=== PATIENT | male | born 1945 | race Caucasian/White ===

== ENCOUNTER 2023-04-27 03:50 | Observation (INO) ==
[2023-04-27] MEDS ORDERED: ASPIRIN 81 MG CHEW PO STA (04:14)
--- NOTE | 2023-04-27 04:19 | Emergency Department Note ---
History of Present Illness General Chief complaint: Chest Pain Stated complaint: CHEST PAIN ON LEFT SIDE Time Seen by Provider: 04/27/23 04:01 Source: patient, family, RN notes reviewed and old records reviewed (06/29/22- radiation oncology visit for prostate cancer treatment/follow-up) Mode of arrival: ambulatory Limitations: no limitations History of Present Illness Maximum Pain Intensity: 4 This patient is a 78-year-old male who comes in after having chest pain that started this past afternoon around 4-4 30 he had but was playing bridge and went out to his car and just had a dull ache is been persistent and low-grade all night it never goes away nothing particular makes it better work he took 2 Aleve without much relief. It is worse with certain positions is better if he puts his arms up over his head. He felt a little short of breath when walking in but otherwise no shortness of breath no nausea vomiting or diaphoresis no fever or cough he said he was worried about pneumonia because 2 people lose with had recent pneumonia but he has had no respiratory symptoms. No lower extremity pain or swelling no trauma or overuse. He has been having some nosebleeds lately although his says that it is not unusual for him. Home Medications Medication Instructions Recorded Confirmed Type aspirin 325 mg tablet 325 mg PO DAILY 09/19/18 06/29/21 History lisinopril 20 mg tablet 20 mg PO DAILY 09/19/18 06/29/21 History loratadine 10 mg capsule 10 mg PO DAILY 09/19/18 06/29/21 History multivitamin 1 cap PO DAILY 09/19/18 06/29/21 History allopurinol 100 mg tablet 300 mg PO DAILY 06/29/21 06/29/21 History Allergies Allergy/AdvReac Type Severity Reaction Status Date / Time No Known Allergies Allergy Verified 06/29/21 13:12 Past Med/Surg History Medical History Sebaceous cyst Removed from chest wall Allergic rhinitis Gout 1 episode - now resolved Prostate cancer BPH (benign prostatic hyperplasia) Hypertension Surgical History H/O left inguinal hernia repair Hx of hemorrhoidectomy Family History Mother , 76yo Hypertension AML (acute myeloid leukemia) Father , 76yo Prostate cancer Diabetes Myocardial infarction Hypertension Sister Wilms' tumor Had a kidney removed Breast cancer Arthritis Hypertension Son , 46yo ALL (acute lymphoblastic leukemia) Meningioma Initially benign and later became malignant Daughter No problems noted. Social History Smoking Status: Former smoker Age Started Using Tobacco: 16; Cigarettes Per Day: Less than 1 PPD when smoking;smoked his pipe more;; Hx Alcohol Use: Yes (1 glass wine/week;Scotch 1/week;Beer in golf seasoning;) Alcohol type: beer, wine and hard liquor Hx Substance Use: No Preferred Language: Mohawk Communication Ability: Effective Visual Impairment: No Limitations Hearing Ability: Normal Manager System Required: No Beliefs That Will Affect Care: None marital status: Current Living Situation: Spouse Current Living Situation Comment: Lives at the [facility] current occupational status: retired 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;Professor; Feels Safe at Home: Yes Diet: other caffeine: No Review of Systems A total of 10 systems reviewed and were otherwise negative Physical Exam Vital Signs Vital Signs - 24 hr 04/27/23 03:55 04/27/23 03:55 04/27/23 03:58 Temperature 36.4 C L Temperature Source Oral Pulse Rate 67 70 Pulse Rate [Apical] Pulse Rhythm [Apical] Respiratory Rate 25 H Respiratory Effort / Characteristics Short of Breath Respiratory Depth Respiratory Pattern Blood Pressure 172/88 H Blood Pressure [Left Arm] Blood Pressure Mean 116 Blood Pressure Mean [Left Arm] Blood Pressure Position [Left Arm] Pulse Oximetry 98 Oxygen Delivery Method Room Air Sepsis Recent Fever Within 48 Hours No Sepsis New/Unexplained Change in Mental Status N/A Sepsis Action Taken by Nursing No Action Required 04/27/23 04:13 04/27/23 04:54 04/27/23 06:23 Temperature Temperature Source Pulse Rate Pulse Rate [Apical] 60 64 Pulse Rhythm [Apical] Regular Respiratory Rate 16 24 Respiratory Effort / Characteristics Non-Labored Spontaneous Non-Labored Spontaneous Respiratory Depth Normal Normal Respiratory Pattern Regular Regular Blood Pressure Blood Pressure [Left Arm] 129/67 144/87 H Blood Pressure Mean Blood Pressure Mean [Left Arm] 87 106 Blood Pressure Position [Left Arm] Semi-fowlers Semi-fowlers Pulse Oximetry 96 93 96 Oxygen Delivery Method Room Air Room Air Room Air Sepsis Recent Fever Within 48 Hours Sepsis New/Unexplained Change in Mental Status Sepsis Action Taken by Nursing General: Well developed well nourished in no acute distress, breathing comfortably on room air. Normal speech HEENT: Normal cephalic atraumatic. Pupils are equal round and reactive to light. Sclera anicteric. Extraocular movements are intact. Oropharynx is pink with moist mucous membranes. No swelling of the mouth lips or tongue. Neck: Supple with a midline trachea. No meningeal signs or stiffness, no JVD or bruits. No Stridor. Chest: Clear to auscultation bilaterally. No wheezes or rhonchi. No increased work of breathing. Mildly tender to palpation in the left side and is reproducible with movement he says Heart: Regular rate and rhythm with frequent PVCs seen on the monitor and irregularity but without murmurs or gallops. Abdomen: Soft nontender, nondistended without rebound guarding or rigidity. Extremities: No cyanosis clubbing or edema. No calf tenderness or assymetry Spine/Back. Non tender to palpation. No CVA tenderness Skin: Good turgor without rashes. Neurologic exam: Cranial nerves two through 12 are intact. Motor and sensation are intact and symmetrical throughout. Course Administered Medications Discontinued Medications Aspirin (Aspirin 81 Mg Chew) 324 mg PO NOW STA Stop: 04/27/23 04:15 Last Admin: 04/27/23 04:20 Dose: 324 mg Documented By: MICHAEL Sodium Chloride (Nss) 500 mls @ 999 mls/hr IV .Q31M ONE Stop: 04/27/23 05:20 Last Infusion: 04/27/23 05:29 Dose: Infused Documented By: Admin: 04/27/23 04:58 Dose: 999 mls/hr Documented By: MICHAEL Medical Decision Making Differential Diagnosis Acute coronary syndrome, arrhythmia, pneumothorax, pneumonia, infection, COVID, GERD, musculoskeletal, PE Medical Records Attestation: I reviewed the patient's medical records. Home Medications Current Medication List: was personally reviewed by me Laboratory Data Attestation: I reviewed the patient's lab results. 04/27/23 04:06 04/27/23 04:06 Lab Results 04/27/23 04/27/23 Range/Units 04:06 04:21 WBC 55.26 H* (4.8-10.8) K/ul RBC 3.36 L (4.70-6.10) M/uL Hgb 9.2 L (14.0-18.0) g/dl Hct 31.4 L (42.0-52.0) % MCV 93.5 (80.0-100.0) fL MCH 27.4 (25.0-34.0) pg MCHC 29.3 L (32.0-36.0) g/dL RDW Std Deviation 62.7 H (36.4-46.3) fL RDW Coeff of Lilliam 18.9 H (11.5-14.5) % Plt Count 54 L (130-400) K/uL Absolute Nucleated RBC 2.90 H (0.00-0.12) K/uL Nucleated RBC % (auto) 5.2 % Neutrophils % (Manual) 61 % Lymphocytes % (Manual) 7 % Monocytes % (Manual) 7 % Metamyelocytes % (Man) 10 % Myelocytes % (Man) 9 % Promyelocytes % (Man) 1 % Blast Cells % (Manual) 5 % Neutrophils # (Manual) 33.71 H (1.40-6.50) K/uL Total Absolute Neuts 33.71 H (1.4-6.5) K/uL Lymphocytes # (Manual) 3.87 H (1.2-3.4) K/uL Total Abs Lymphocytes 3.87 H (1.2-3.4) K/uL Monocytes # (Manual) 3.87 H (0.11-0.59) K/uL Metamyelocytes # (Man) 5.53 H (0-0) K/uL Myelocytes # (Manual) 4.97 H (0-0) K/uL Promyelocytes # (Man) 0.55 H (0-0) K/uL Blast Cells # (Man) 2.76 H (0-0) K/uL Hypogranular Neuts 1+ Dohle Bodies 1+ Polychromasia 1+ Stomatocytes 1+ D-Dimer 2060 H* (0-500) ug/L FEU Sodium 134 L (136-145) mmol/L Potassium 4.2 (3.5-5.1) mmol/L Chloride 104 (98-107) mmol/L Carbon Dioxide 22 (21-32) mmol/L Anion Gap 8 (3-11) BUN 36 H (6-23) mg/dl Creatinine 2.14 H (0.6-1.4) mg/dl Est Cr Clr Drug Dosing 37.6 ml/min Est GFR ( Amer) 32.7 ml/min Est GFR (Non-Af Amer) 28.2 ml/min BUN/Creatinine Ratio 16.8 (10-20) Glucose 119 H (70-99(Fasting)) mg/dl Calcium 8.4 L (8.6-10.3) mg/dl Total Bilirubin 1.3 H (0.2-1.0) mg/dl AST 35 (13-39) U/L ALT 11 (7-52) U/L Alkaline Phosphatase 78 (34-104) U/L Troponin I High Sens 11.7 (0-20) pg/ml Total Protein 7.3 (6.0-8.3) gm/dl Albumin 4.1 (3.4-5.0) gm/dl Globulin 3.2 (2.5-4.0) gm/dl Albumin/Globulin Ratio 1.3 (0.9-2) Lipase 27 (11-82) U/L SARS-CoV-2 (PCR) POSITIVE A* (Negative) Influenza Type A (PCR) Negative (Neg) Influenza Type B (PCR) Negative (Neg) RSV (RT-PCR) Negative (Neg) Imaging Data Attestation: I personally reviewed and interpreted this imaging study as follows: My Impression: Chest x-kirstin per my independent interpretationno acute infiltrate, failure, pneumothorax. There is mild increased interstitial markings more so on the right Radiologist's Impression: Chest X-Ray 04/27/23 04:13 SINGLE VIEW CHEST CLINICAL HISTORY: Atypical chest pain. FINDINGS: An AP, portable, upright chest radiograph is obtained. No prior studies are available for comparison at the time of dictation. The heart is enlarged. The pulmonary vasculature is noncongested. Nonspecific interstitial thickening is likely chronic. There is bibasilar scarring/atelectasis. The lungs and pleural spaces are otherwise clear. No pneumothorax is seen. The skeletal structures are osteopenic. The bony thorax is grossly intact. Arthritic change is noted in the left shoulder. IMPRESSION: Cardiomegaly with no acute cardiopulmonary abnormality identified ACT 112: Negative or not required by law. Electronically signed by: Ash Coe M.D. 04/27/2023 7:10 AM ECG Data Attestation: I personally reviewed and interpreted this ECG as follows: Indication: + chest pain Rate (beats per minute): 81 Rhythm: + normal sinus ECG Intervals/blocks: + Normal QRS, + Normal QT and + Normal PA ECG [place]: + Normal ECG ST segments: + Normal ST segments ECG Findings: + PVCs and + [place]; no PACs Comparison ECG Date: no prior available MDM Narrative This patient comes in as scribed above he had persistent chest pain that has been there approximately 12 hours. On exam there is no rash. He appears in no distress. He has stable vital signs .he is not hypoxemic there is been no trauma. His EKG shows frequent PVCs/bigeminy which he says is common for him he tells me he had a stress test at 1 point about a year ago was normal with exception of frequent PVCs which got better with stress. He has no known cardiac history. IV access established was placed on a clinical research monitor he was given aspirin 324 mg chewable he was reassessed frequently. Multiple blood testing was obtained as well as an x-ray and EKG. his troponin is within normal limits. His symptoms would be atypical for cardiac disease. Chest x-ray does not show any congestive heart failure, pneumonia, pneumothorax. His renal function is elevated compared to baseline there may be a prerenal component his creatinine is up to 2 I did give him 500 cc IV normal saline bolus. he feels he has been keeping up with his fluids. His CBC came back markedly abnormal. His white count is 55,000 and he has a hemoglobin in the 9 range and platelets in the 50,000 range. He does have pancytopenia I am concerned he could have a leukemic or bone marrow type process and I think that that is likely causing his symptoms. I do think he needs to be admitted/observed for further treatment and evaluation. His COVID test did come back positive however he did have COVID over [place] and I think likely that the residual as he has no COVID-like symptoms. I did consult Dr. Leon, who saw him in the ER and will be admitting him for these measures. After Dr. Leon saw him the lab did call and stated that he had blasts and the pathologist would be reviewing it as well Continuous cardiac monitoring: Orders placed in EMR for continuous cardiac monitoring: Upon my evaluation patient noted to be in normal sinus rhythm with a rate of 80 with frequent PVCs Impression & Plan Chest pain, Frequent PVCs, Elevated WBC count, Thrombocytopenia, Anemia, Bone marrow disease Discharge Plan Visit Data Chief Complaint: Chest Pain Stated Complaint: CHEST PAIN ON LEFT SIDE ED Provider: Rachid Vega Discharge Problem: Chest pain, Frequent PVCs, Elevated WBC count, Thrombocytopenia, Anemia, Bone marrow disease Forms Stand Alone Forms: My [facility] Prescriptions Prescriptions: No Action aspirin 325 mg tablet 325 mg PO DAILY loratadine 10 mg capsule 10 mg PO DAILY multivitamin capsule 1 cap PO DAILY lisinopril 20 mg tablet 20 mg PO DAILY allopurinol 100 mg tablet 300 mg PO DAILY Referrals Referrals: PCP,NO [Physician] - Discharge Problem: Chest pain Qualifiers: Chest pain type: precordial pain Qualified Code(s): R07.2 - Precordial pain Elevated WBC count Qualifiers: Leukocytosis type: unspecified Qualified Code(s): D72.829 - Elevated white blood cell count, unspecified Anemia Qualifiers: Anemia type: unspecified type Qualified Code(s): D64.9 - Anemia, unspecified
[2023-04-27 04:40] LABS: Albumin Globulin Ratio 1.3 (0.9-2); Albumin Level 4.1 gm/dl (3.4-5.0); BUN Creatinine Ratio 16.8 (10-20); Bilirubin,Total 1.3 mg/dl (0.2-1.0); Calcium 8.4 mg/dl (8.6-10.3); Creatinine Clr Calc Pharmacy 37.6 ml/min; Est GFR (African American) 32.7 ml/min; Est GFR (Non-African American) 28.2 ml/min; Globulin 3.2 gm/dl (2.5-4.0); Potassium 4.2 mmol/L (3.5-5.1); Total Protein 7.3 gm/dl (6.0-8.3)
[2023-04-27 04:46] LABS: Troponin I High Sensitivity 11.7 pg/ml (0-20)
[2023-04-27] MEDS ORDERED: SODIUM CHLORIDE 0.9% 500 ML IV ONE (04:50)
[2023-04-27 05:07] LABS: Hematocrit (blood only) 31.4 % (42.0-52.0); Hemoglobin 9.2 g/dl (14.0-18.0); Mean Corpuscular Hemoglobin 27.4 pg (25.0-34.0); Mean Corpuscular Hgb Conc 29.3 g/dL (32.0-36.0); Mean Corpuscular Volume 93.5 fL (80.0-100.0); Nucleated RBC % (auto) 5.2 %; Platelet Count 54 K/uL (130-400); RDW Coefficient of Variation 18.9 % (11.5-14.5); RDW Standard Deviation 62.7 fL (36.4-46.3); Red Blood Count 3.36 M/uL (4.70-6.10); White Blood Count 55.26 K/ul (4.8-10.8)
[2023-04-27 05:16] LABS: Influenza A virus by PCR Negative (Neg); Influenza B virus by PCR Negative (Neg); RSV by PCR Negative (Neg)
[2023-04-27 06:13] LABS: D Dimer 2060 ug/L FEU (0-500)
[2023-04-27 06:14] LABS: SARS CoV2 RNA(COVID-19) Ceph POSITIVE (Negative)
[2023-04-27 06:15] LABS: ALC (manual) 3.87 K/uL (1.2-3.4); ANC (manual) 33.71 K/uL (1.4-6.5); Blast # (manual) 2.76 K/uL (0-0); Blast Cells % (manual) 5 %; Dohle Bodies 1+; Hypogranular Neutrophils 1+; Lymphocytes # (manual) 3.87 K/uL (1.2-3.4); Lymphocytes % (manual) 7 %; Metamyelocytes # (manual) 5.53 K/uL (0-0); Metamyelocytes % (manual) 10 %; Monocytes # (manual) 3.87 K/uL (0.11-0.59); Monocytes % (manual) 7 %; Myelocytes # (manual) 4.97 K/uL (0-0); Myelocytes % (manual) 9 %; Neutrophils # (manual) 33.71 K/uL (1.40-6.50); Neutrophils % (manual) 61 %; Polychromasia 1+; Promyelocytes # (manual) 0.55 K/uL (0-0); Promyelocytes % (manual) 1 %; Stomatocytes 1+
--- OUTSIDE RECORDS SUMMARY | 2023-04-27 07:10 | External Medical Summary | Summary of Care ---
Author Name Unknown Organization [facility] Address [address] [place] [address] Phone [phone] Care Team Providers Care Financial Sales Associate Name Role Phone Mohan Haddad DO Primary Care Provider Reason for Visit * Reason Onset Date Comments Appointment 12/18/2022 Cardio Encounter Details Date Type Department Care Team (Late st Contact Info) Description 12/18/2022 Telephone Family Practice [facility] [address] [facility] [place] [address] Mohan Haddad DO [address] [facility] [place] [address] Appointment (Cardio ) Allergies Active Allergy Reactions Criticality Noted Date Comments Adhesive Tape Rash 05/21/2018 Allergic to adhesive only,not the " tape" documented as of this encounter (statuses as of 02/13/2023) Medications Medication Sig Dispensed Refills Start Date End Date Status aspirin 325 MG Tablet Take 1 Tablet by mouth in the morning. 0 Active Multiple Vitamins-Minerals (CENTRUM ADULTS) TABS Take by mouth. 0 Active Loratadine 10 MG Cap Take 1 Capsule by mouth in the morning. 0 Active Fluocinonide 0.05 % External Ointment Apply topically to affected area 2 times a day . Apply to arms and legs for flares of rash 60 g 1 2022 Active Additional Information Patient not taking.Reported on 04/28/2022 Metoprolol Succinate ER 25 MG Oral Tablet Extended Release 24 Hour (Toprol XL)Indications:Vik quent PVCs Take 0.5 Tablets by mouth at bedtime. 45 Tablet 3 10/02/2022 Active Lisinopril 10 MG Oral Tablet (Prinivil) Take 1 Tablet by mouth in the morning. 90 Tablet 3 10/16/2022 Active Allopurinol 300 MG Oral Tablet (Zyloprim) TAKE 1 TABLET DAILY. [id number] PRESCRIPTION 90 Tablet 1 11/28/2022 Active documented as of this encounter (statuses as of 02/13/2023) Active Problems Problem Noted Date Diagnosed Date Chronic kidney disease, stage 3a 06/14/2020 Overview: Per CKD protocol Prostate cancer 05/21/2019 History of actinic keratoses 01/06/2019 Obesity, Class I, BMI 30.0-34.9 (see actual BMI) 05/21/2018 documented as of this encounter (statuses as of 02/13/2023) Resolved Problems Problem Noted Date Diagnosed Date Resolved Date Prostate cancer 11/14/2018 05/21/2019 documented as of this encounter (statuses as of 02/13/2023) Immunizations Name Administration Dates Next Due COVID-19 mRNA, LNP-s, No Pre serve, 2-Dose Series ([email or web address]) 06/02/2020,05/12/2020 COVID-19, MRNA-LNP, 23-24, P F, 30 MCG/0.3 mL, 12 YRS AND ABOVE, IM ([facility]ZER-[facility]) 01/10/2023 COVID-19, mRNA, LNP-s, PF, B ooster, 100mcg/0.5mg (Moderna) 07/19/2021,02/10/2021 Covid-19, Mrna, Lnp-s, Pf, B ivalent, 30 Mcg, IM, 12 yrs and above (Pfizer) 01/10/2022 Pneumococcal Conjugate Vacc, 13 Valent (Prevnar) 03/26/2015,01/06/2010 Pneumococcal Polysaccharide PPV23 (Pneumovax) 01/06/2010,04/30/2000 Rsv Vac., Recomb, Adjuvant, Pf,0.5 Ml (Arexvy) 12/19/2022 Season Influenza, Quad, PF, Adjuvanted, 65+ Yrs, IM (FLUAD) 01/27/2022 Seasonal Influenza Virus Vac cine, Unspecified Formulation 01/24/2018 Seasonal Influenza, Quadriva lent Hd (Fluzone Hd) 01/24/2023,01/31/2021 Seasonal Influenza, Quadriva lent Hd, 65+ Yrs 01/24/2020 Seasonal Influenza, Trivalen t, Adjuvanted, 65+ yrs 01/26/2022,01/21/2019,01/24/2018 TD - Tetanus/Diptheria (ADULT) 01/06/2010 TDAP (age 10 and older)(Boostrix) 05/31/2022 TDAP (age 11 and older)(Adacel) 01/17/2012 Varicella Zoster Vaccine (Adult) 01/23/2007 Zoster Vaccine Recombinant (Shingrix) ,10/10/2019,04/16/2019,04/16 documented as of this encounter Social History Tobacco Use Types Packs/Day Years Used Date Smoking Tobacco: Former Cigarettes Q uit: 10/05/1970 Smokeless Tobacco: Never Alcohol Use Standard Drinks/Week Comments Yes 1 (1 standard drink = 0.6 oz pur e alcohol) occ PHQ-2 Answer Date Recorded PHQ Adult Total Score 0 06/23/2020 Hunger Vital Sign Answer Date Recorded Worried About Running Out of Food in the Last Ye ar Never true 05/21/2019 Ran Out of Food in the Last Year Never true 05/21/2019 Sex and Gender Information Value Date Recorded Sex Assigned at Male 05/21/2019 9:49 AM EST Gender Identity Male 05/21/2019 9:49 AM EST Sexual Orientation Straight 05/21/2019 9: 49 AM EST Job Start Date Occupation Industry Not on file Not on file Not on file documented as of this encounter Miscellaneous Notes * Telephone Encounter - Teresa Matt OSA - 02/13/2023 11:35 AM EST Physician schedules are being opened on a monthly basis d/t the complexity of scheduling with them right now. Pt will remain on the recall list for an appointment. * Telephone Encounter - Hollie Vergara OSA - 02/13/2023 11:31 AM EST Pt calling back in regarding an appointment with Dr. Mcmahon. He is aware he is on recall list, but is upset that he has not heard back in regards to an appointment. Declined setting up an appointment with a midlevel. Please advise. Thank you. * Telephone Encounter - Jahaira Haddad - 12/18/2022 9:27 AM EDT Thanks. Pt was asking about 2023. He is aware someone will call him * Telephone Encounter - Jahaira Haddad - 12/18/2022 9:21 AM EDT When pts appt with Dr Wilburn was cx he was told he would get a call back to schedule with Dr Mcmahon, he would like a call about this appt as there is nothing open for me to offer him documented in this encounter Plan of Treatment Upcoming Encounters Date Type Department Care Team (Late st Contact Info) Description 03/05/2023 10:45 AM EST Office Visit Dermatology [facility] [address] [facility] [place] [address] Juve Maurice MD [address] [facility] [place] [address] 08/07/2023 8:00 AM EDT Office Visit Family Practice [facility] [address] [place] [address] Mohan Haddad DO [address] [place] [address] Scheduled Procedures Name Priority Associated Diagnoses Date/Ti me COLONOSCOPY FLEXIBLE PROXIMAL DIAGNOSTIC Recall History of colon polyps Health Maintenance Due Date Last Done Comments Depression Screening 06/23/2021 06/23/2020 CKD PHOS USE SMARTSET 90671 12/27/2021 12/27/2020 Albumin/Creatinine Ratio 05/30/2023 023, 06/27/2021, 05/24/2020, Additional history exists GFR 06/14/2023 12/14/2022, 05/11, 01/04/2022, Additional history exists CKD HGB USE SMARTSET 08121 12/15/202312/14, 12/14/2022, 10/03/2021, Additional history exists COLONOSCOPY-EVERY 3 YRS AGES 18-100 05/01/2025 05/01/2022, 05/01/2022 DTaP,Tdap,and Td Vaccines (3 - Td or Tdap) 05/31/2032 05/31/2022, 01/17/2012, 01/06/2010 Zoster Vaccines Completed 10/10/2019, 06/2019, 04/16/2019, Additional history exists COLONOSCOPY-EVERY 5 YRS AGES 18-100 Discontinued 05/01/2022, 05/01/2022 COVID-19 Vaccine Completed 01/10/2023, 07/2021, 07/19/2021, Additional history exists Influenza Vaccine (FLU shot) Completed 01/24/2023, 01/27/2022, 01/26/2022, Additional history exists GARDASIL-HPV IMMUNIZATION SERIES Aged Out No longer eligible based on patient's age to complete this topic Hepatitis B Aged Out No longer eligi ble based on patient's age to complete this topic MENINGOCOCCAL (MENACTRA/MENVEO) Aged Out No longer eligible based on patient's age to complete this topic documented as of this encounter Medical Devices Not on filedocumented as of this encounter Care Teams Financial Sales Associate Relationship Specialty Start Date End Date Mohan Haddad DO [address] [place] [address] PCP - General Family Medicine 05/21/18 documented as of this encounter
--- OUTSIDE RECORDS SUMMARY | 2023-04-27 07:10 | External Medical Summary | Summary of Care ---
Author Name Unknown Organization [facility] Address [address] [place] [address] Phone [phone] Care Team Providers Care Envelope Stamping Machine Operator Name Role Phone Mohan Haddad DO Primary Care Provider Reason for Visit * Reason Onset Date Comments Appointment 12/18/2022 Cardio Encounter Details Date Type Department Care Team (Late st Contact Info) Description 12/18/2022 Telephone Family Practice [facility] [address] [facility] [place] [address] Mohan Haddad DO [address] [facility] [address] Appointment (Cardio ) Allergies Active Allergy Reactions [...] Oral Tablet (Zyloprim) TAKE 1 TABLET DAILY. [id number] PRESCRIPTION 90 Tablet 1 11/28/2022 Active documented [...] mRNA, LNP-s, No Pre serve, 2-Dose Series ([employer]) 06/02/2020,05/12/2020 COVID-19, MRNA-LNP, 23-24, P F, 30 MCG/0.3 mL, 12 YRS AND ABOVE, IM ([facility]) 01/10/2023 COVID-19, mRNA, LNP-s, PF, B ooster, [...] encounter Miscellaneous Notes * Telephone Encounter - Hollie Vergara OSA [...] 03/05/2023 10:45 AM EST Office Visit Dermatology [facility] [address] [facility] [place] [address] Juve Maurice MD [address] [facility] [place] [address] 08/07/2023 8:00 AM EDT Office Visit Family Practice [facility] [address] [place] [address] Mohan Haddad DO [address] [place] [address] Scheduled Procedures Name Priority Associated Diagnoses Date/Ti me COLONOSCOPY FLEXIBLE PROXIMAL DIAGNOSTIC Recall History of colon polyps Health Maintenance Due Date Last Done Comments Depression Screening 06/23/2021 06/23/2020 CKD PHOS USE SMARTSET 64496 12/27/2021 12/27/2020 Albumin/Creatinine Ratio 05/30/2023 023, 06/27/2021, 05/24/2020, Additional history exists GFR 06/14/2023 12/14/2022, 05/11, 01/04/2022, Additional history exists CKD HGB USE SMARTSET 35772 12/15/202312/14, 12/14/2022, 10/03/2021, Additional history exists COLONOSCOPY-EVERY 3 YRS AGES 18-100 05/01/2025 05/01/2022, 05/01/2022 DTaP,Tdap,and Td Vaccines (3 - Td or Tdap) 05/31/2032 05/31/2022, 01/17/2012, 01/06/2010 Zoster Vaccines Completed 10/10/2019, 0706/2019, 04/16/2019, Additional history exists COLONOSCOPY-EVERY 5 YRS [...] filedocumented as of this encounter Care Teams Envelope Stamping Machine Operator Relationship Specialty Start Date End Date Mohan Haddad DO [address] [place] [address] PCP - General Family Medicine 05/21/18 documented as of this encounter
--- OUTSIDE RECORDS SUMMARY | 2023-04-27 07:10 | External Medical Summary | Summary of Care ---
Author Name Unknown Organization [facility] Address [address] [place] [address] Phone [phone] Care Team Providers Care Ramp Manager Name Role Phone Rajat Haddadgama Alejandrageramn Primary Care Provider Reason for Visit * Reason Comments Skin Check Patient is here for FBSE. Patient stated he has a red blotch on his upper right arm and he used fluocinonide. He also has two on his LLE that he put fluocinonide on. He said he doesn't know what they are. He also has fungus under his great right toenail. Patient has no history of skin cancer Encounter Details Date Type Department Care Team (Late st Contact Info) Description 03/05/2023 10:45 AM EST Office Visit Dermatology [facility] [place] [address] [facility] [place] [address] Juve Maurice MD [address] [facility] [place] [address] Actinic skin damage*; Seborrheic keratoses; Hinson angioma; Multiple benign nevi; Skin neoplasm; Nail dystrophy; Actinic keratosis Allergies Active Allergy Reactions Criticality Noted Date Comments Adhesive Tape Rash 05/21/2018 Allergic to adhesive only,not the " tape" documented as of this encounter (statuses as of 03/05/2023) Medications Medication Sig Dispensed Refills Start Date [...] of rash 60 g 1 2022 Active Metoprolol Succinate ER 25 MG Oral Tablet Extended Release 24 Hour (Toprol XL)Indications:Vik quent PVCs Take 0.5 Tablets by mouth at bedtime. 45 Tablet 3 10/02/2022 Active Lisinopril 10 MG Oral Tablet (Prinivil) Take 1 Tablet by mouth in the morning. 90 Tablet 3 10/16/2022 Active Allopurinol 300 MG Oral Tablet (Zyloprim) TAKE 1 TABLET DAILY. [id number] PRESCRIPTION 90 Tablet 1 11/28/2022 Active predniSONE 20 MG Oral Tablet (Deltasone)Indicat ions:Sinobronchiti s 2 tabs in the morning x 5 d, then one a day x 5 days 15 Tablet 0 02/28/2023 Active Amoxicillin-Pot Clavulanate 875-125 MG Oral Tablet (Augmentin)Indicat ions:Sinobronchiti s Take 1 Tablet by mouth in the morning and 1 Tablet before bedtime. Do all this for 10 days. 20 Tablet 0 02/28/2023 03/10/2023 Active documented as of this encounter (statuses as of 03/05/2023) Active Problems Problem Noted Date Diagnosed Date Chronic kidney disease, stage 3a 06/14/2020 Overview: Per CKD protocol Prostate cancer 05/21/2019 History of actinic keratoses 01/06/2019 Obesity, Class I, BMI 30.0-34.9 (see actual BMI) 05/21/2018 documented as of this encounter (statuses as of 03/05/2023) Resolved Problems Problem Noted Date Diagnosed Date Resolved Date Prostate cancer 11/14/2018 05/21/2019 documented as of this encounter (statuses as of 03/05/2023) Immunizations Name Administration Dates Next Due COVID-19 mRNA, LNP-s, No Pre serve, 2-Dose Series ([employer]) 06/02/2020,05/12/2020 COVID-19, MRNA-LNP, 23-24, P F, 30 MCG/0.3 mL, 12 YRS AND ABOVE, IM ([employer]-Comirnaty) 01/10/2023 COVID-19, mRNA, LNP-s, PF, B ooster, [...] on file documented as of this encounter Progress Notes * Juve Maurice MD - 03/05/2023 11:03 AM EST SUBJECTIVE: Chief Complaint: Chief Complaint Patient presents with Skin Check Patient is here for FBSE. Patient stated he has a red blotch on his upper right arm and he used fluocinonide. He also has two on his LLE that he put fluocinonide on. He said he doesn't know what theyare. He also has fungus under his great right toenail. Patient has no history of skin cancer HPI: Junior Burkett is a 78 year old male seen for a full skin check. A couple spots he's concerned about. Red blotch on right arm. Sometimes on legs too. Applies fluocinonide and that seems to help Also has yellow nail on right great toe. Thinks it might be fungus, not bothered by this DERMATOLOGIC HISTORY: Actinic keratoses REVIEW OF SYSTEMS: CONSTITUTIONAL: negative SKIN: No new or changing moles or rashes other than those noted in HPI HEME/LYMPH: No new or enlarging lumps or bumps OBJECTIVE: GEN: Healthy, alert, no distress, appears oriented, pleasant, and cooperative SKIN: Detailed exam of hair, face, trunk, arms, and legs A. Left upper cutaneous lip - 5mm irregular brown macule - lentigo, r/o LM Left spiritism, left forehead - x2 gritty erythematous macules/papules Scattered on face, chest, back - diffuse mottled hypopigmented and hyperpigmented macules without significant irregularity. Associated telangiectasias At the trunk and extremities are several scattered jon/brown hyperkeratotic stuck on appearing waxypapules. Scattered at the chest, abdomen, back upper and lower extremities are multiple evenly pigmented brown macules and papules without significant irregularity. Multiple Scattered bright red to violaceous macules and domed papules over torso Right great toe - yellow hypertrophied nail Diffuse xerosis ASSESSMENT/PLAN: Skin neoplasm(s) - Shave biopsy of the following lesion(s) A. Left upper cutaneous lip - 5mm irregular brown macule - lentigo, r/o LM Procedure - Tangential biopsy of skin Biopsy by shave was recommended for the lesion(s) noted above to establish and confirm diagnosis. The procedure, risks, benefits, alternatives and expected outcomes were discussed with the patient and consent was obtained. Time out called. Patient identified, procedure verified, site(s) identified and verified. Patient and staff present in agreement. Area prepped with alcohol and anesthetized using 0.5% lidocaine with epinephrine at 1:200,000 concentration. Biopsy of lesion(s) performed. 20% AlCl and bandaging applied. Specimen(s) sent to pathology. Patient instructed in routine post-op care. Actinic keratosis -The diagnosis and malignant potential of the lesion was explained. Treatment options were reviewedincluding cryotherapy, topical medications, and observation. All questions were addressed. Procedure - Cryotherapy (Premalignant Destruction) -The patient would like to proceed with cryosurgery;Cryosurgery explained to the patient, consent obtained, patient, site and procedure verified, and then cryotherapy was performed with Liquid Nitrogen via cryo spray unit to 2 lesions. Location noted in physical exam. Post op course explained. -Discussed that if any of these lesions fail to completely resolve after treatment patient should call me for re-evaluation Chronic Actinic Damage - Discussed that skin changes are due to chronic sun exposure. - Daily sun protection recommended including physical (i.e. clothing) and chemical blockers. Broad spectrum sunscreens with at least SPF 30 for UVA and UVA protection were recommended. Seborrheic keratoses - The benign nature of these lesions was discussed with the patient and that no treatment is indicated today. Multiple benign-appearing nevi - Dermoscopy was used for physical examination of pigmented lesions during todays office visit. - No features concerning for malignancy on exam today. - Discussed and emphasized importance of sun protection - Patient to contact physician for any new or changing lesions or other concerns. Hinson angioma(s) - The benign nature of these lesions was discussed with the patient and that no treatment is indicated today. Nail dystrophy - discussed treatment options, discussed no treatment needed - no treatment today Xerosis cutis - -Recommend mild soaps such as Dove or Cetaphil -Recommended proper bathing techniques with luke-warm quick showers -Recommended twice daily moisturizing cream such as Cetaphil, CeraVe, Aveeno, Eucerin, Oil of Olay,Neutrogena, or Aquaphor; especially to be applied within 3 min of exiting the shower - can continue fluocinonide to areas of redness/irritation Juve Maurice MD Ref: SELF[[id number]] NO STREET ADDRESS AVAILABLE None (office) None (fax) PCP: JASMIN HADDAD [address] [place] [address] [phone] documented in this encounter Nursing Notes * Sabine Hawthorne LPN - 03/05/2023 10:40 AM EST Patient identified by name and date of . Do you have any concerns about pain management for today's visit? No Living Will or Advance Directive for Health Care as noted on problem list. [facility] is a way you can talk to your provider online through e-mail. Would you like to sign up? I can activate it for you? ALREADY ACTIVE Chief Complaint Patient presents with Skin Check Patient is here for FBSE. Patient stated he has a red blotch on his upper right arm and he used fluocinonide. He also has two on his LLE that he put fluocinonide on. He said he doesn't know what theyare. He also has fungus under his great right toenail. Patient has no history of skin cancer documented in this encounter Plan of Treatment Upcoming Encounters Date Type Department Care Team (Late st Contact Info) Description 08/07/2023 8:00 AM EDT Office Visit [facility] [address] [place] [address] Jasmin Haddad DO [address] [place] [address] 03/17/2024 9:45 AM EST Office Visit Dermatology [facility] [address] [facility] [place] [address] Juve Maurice MD [address] [facility] [place] [address] Pending Results Name Type Priority Associated Diagnoses Date /Time SURGICAL PATHOLOGY Pathology Routine Skin neoplasm 03/05/2023 11:19 AM EST Scheduled Procedures Name Priority Associated Diagnoses Date/Ti me COLONOSCOPY FLEXIBLE PROXIMAL DIAGNOSTIC Recall History of colon polyps Health Maintenance Due Date Last Done Comments Depression Screening 06/23/2021 06/23/2020 CKD PHOS USE SMARTSET 38368 12/27/2021 12/27/2020 Albumin/Creatinine Ratio 05/30/2023 023, 06/27/2021, 05/24/2020, Additional history exists GFR 06/14/2023 12/14/2022, 05/11, 01/04/2022, Additional history exists CKD HGB USE SMARTSET 70000 12/15/202312/14, 12/14/2022, 10/03/2021, Additional history exists COLONOSCOPY-EVERY [...] Not on filedocumented as of this encounter Visit Diagnoses Diagnosis Actinic skin damage- Primary Other dermatitis due to solar radiation Seborrheic keratoses Hinson angioma Nevus, non-neoplastic Multiple benign nevi Benign neoplasm of skin, site unspecified Skin neoplasm Neoplasm of unspecified nature of bone, soft tissue, and skin Nail dystrophy Other specified disease of nail Actinic keratosis documented in this encounter Care Teams Ramp Manager Relationship Specialty Start Date End Date Jasmin Haddad DO [address] [place] [address] PCP - General Family Medicine 05/21/18 documented as of this encounter
--- OUTSIDE RECORDS SUMMARY | 2023-04-27 07:10 | External Medical Summary | Summary of Care ---
Author Name Unknown Organization [facility] Address [address] [place] [address] Phone [phone] Care Team Providers Care Moving Worker Name Role Phone Boo Mohan Alejandragerman Primary Care Provider Reason for Visit * Reason Onset Date Comments Appointment 03/12/2023 Encounter Details Date Type Department Care Team (Late st Contact Info) Description 03/12/2023 Telephone Dermatology [facility] [place] [address] [facility] [place] [address] [facility] [address] Appointment Allergies Active Allergy Reactions Criticality Noted Date Comments Adhesive Tape Rash 05/21/2018 Allergic to adhesive only,not the " tape" documented as of this encounter (statuses as of 03/13/2023) Medications Medication Sig Dispensed Refills Start Date [...] Oral Tablet (Zyloprim) TAKE 1 TABLET DAILY. [id number] PRESCRIPTION 90 Tablet 1 11/28/2022 Active predniSONE 20 MG Oral Tablet (Deltasone)Indicat ions:Sinobronchiti s 2 tabs in the morning x 5 d, then one a day x 5 days 15 Tablet 0 02/28/2023 Active documented as of this encounter (statuses as of 03/13/2023) Active Problems Problem Noted Date Diagnosed Date Chronic kidney disease, stage 3a 06/14/2020 Overview: Per CKD protocol Prostate cancer 05/21/2019 History of actinic keratoses 01/06/2019 Obesity, Class I, BMI 30.0-34.9 (see actual BMI) 05/21/2018 documented as of this encounter (statuses as of 03/13/2023) Resolved Problems Problem Noted Date Diagnosed Date Resolved Date Prostate cancer 11/14/2018 05/21/2019 documented as of this encounter (statuses as of 03/13/2023) Immunizations Name Administration Dates Next Due COVID-19 mRNA, LNP-s, No Pre serve, 2-Dose Series ([employer]) 06/02/2020,05/12/2020 COVID-19, MRNA-LNP, 23-24, P F, 30 MCG/0.3 mL, 12 YRS AND ABOVE, IM ([facility]ER-[facility]) 01/10/2023 COVID-19, mRNA, LNP-s, PF, [...] encounter Miscellaneous Notes * Telephone Encounter - Ritika Horne OSA - 03/13/2023 4:18 PM EST Called patient and scheduled appointment. * Telephone Encounter - Marga Abbott OSA - 03/13/2023 10:16 AM EST Yasmani Vargas cannot make the appt on 03/22 at 10:30. Please contact him again to reschedule. Thank you * Telephone Encounter - Ritika Horne OSA - 03/13/2023 7:52 AM EST Sent patient MyG offering appt with Dr. Maurice. * Telephone Encounter - Ritika Horne OSA - 03/12/2023 3:55 PM EST Called patient, spoke to . She will have patient call me back tomorrow. * Telephone Encounter - Ritika Horne OSA - 03/12/2023 3:55 PM EST ----- Message from Juve Maurice MD sent at 03/07/2023 3:09 PM EST ----- Please schedule a non-urgent return for patient to have this lesion cryo'd. Thanks. I sent a MyG A. Skin, left upper cutaneous lip, shave: Pigmented actinic keratosis documented in this encounter Plan of Treatment Upcoming Encounters Date Type Department Care Team (Late st Contact Info) Description 04/13/2023 9:00 AM EST Office Visit Dermatology [facility] [address] [place] [address] Juve Maurice MD [address] [place] [address] 08/07/2023 8:00 AM EDT Office Visit Family Practice [facility] [address] [place] [address] Mohan Haddad DO [address] [place] [address] 03/17/2024 9:45 AM EST Office [facility] [address] [facility] [address] [place] [address] Juve Maurice MD [address] [place] [address] Scheduled Procedures Name Priority Associated Diagnoses Date/Ti me COLONOSCOPY FLEXIBLE PROXIMAL DIAGNOSTIC Recall History of colon polyps Health Maintenance Due Date Last Done Comments Depression Screening 06/23/2021 06/23/2020 CKD PHOS USE SMARTSET 82835 12/27/2021 12/27/2020 Albumin/Creatinine Ratio 05/30/2023 023, 06/27/2021, 05/24/2020, Additional history exists GFR 06/14/2023 12/14/2022, 05/11, 01/04/2022, Additional history exists CKD HGB USE SMARTSET 36976 12/15/202312/14, 12/14/2022, 10/03/2021, Additional history exists COLONOSCOPY-EVERY [...] filedocumented as of this encounter Care Teams Moving Worker Relationship Specialty Start Date End Date Mohan Haddad DO [address] [place] [address] PCP - General Family Medicine 05/21/18 documented as of this encounter
--- OUTSIDE RECORDS SUMMARY | 2023-04-27 07:10 | External Medical Summary | Summary of Care ---
Author Name Unknown Organization [facility] Address [address] [place] [address] Phone [phone] Care Team Providers Care Caustic Loader Name Role Phone Mohan Haddadgerman Primary Care Provider Reason for Visit * Reason Onset Date Comments Appointment 01/09/2023 Encounter Details Date Type Department Care Team ([facility] st Contact Info) Description 01/09/2023 Telephone Urology [address] [phone] Services, Scheduling [address] [place] [address] Appointment Allergies Active Allergy Reactions Criticality Noted Date Comments Adhesive Tape Rash 05/21/2018 Allergic to adhesive only,not the " tape" documented as of this encounter (statuses as of 02/28/2023) Medications Medication Sig Dispensed Refills Start Date [...] Oral Tablet (Zyloprim) TAKE 1 TABLET DAILY. [id number] PRESCRIPTION 90 Tablet 1 11/28/2022 Active documented as of this encounter (statuses as of 02/28/2023) Active Problems Problem Noted Date Diagnosed Date Chronic kidney disease, stage 3a 06/14/2020 Overview: Per CKD protocol Prostate cancer 05/21/2019 History of actinic keratoses 01/06/2019 Obesity, Class I, BMI 30.0-34.9 (see actual BMI) 05/21/2018 documented as of this encounter (statuses as of 02/28/2023) Resolved Problems Problem Noted Date Diagnosed Date Resolved Date Prostate cancer 11/14/2018 05/21/2019 documented as of this encounter (statuses as of 02/28/2023) Immunizations Name Administration Dates Next Due COVID-19 mRNA, LNP-s, No Pre serve, 2-Dose Series ([employer]) 06/02/2020,05/12/2020 COVID-19, mRNA, LNP-s, PF, B ooster, 100mcg/0.5mg [...] Seasonal Influenza, Quadriva lent Hd (Fluzone Hd) 01/31/2021 Seasonal Influenza, Quadriva lent Hd, 65+ Yrs [...] encounter Miscellaneous Notes * Telephone Encounter - Chelsea Torres OSA - 01/09/2023 12:33 PM EDT Patient asking for call back get his appt for tomorrow's video visit with Dr. Jarquin rescheduled. Patient states he got a message to reschedule the appt. Please call Pt on [phone] to reschedule. documented in this encounter Plan of Treatment Upcoming Encounters Date Type Department Care Team (Late st Contact Info) Description 03/05/2023 10:45 AM EST Office Visit Dermatology [facility] [address] [place] [address] Juve Maurice MD [address] [place] [address] 08/07/2023 8:00 AM EDT Office Visit [facility] [address] [place] [address] Mohan Haddad, [address] [place] [address] Scheduled Procedures Name Priority Associated Diagnoses Date/Ti me COLONOSCOPY FLEXIBLE PROXIMAL DIAGNOSTIC Recall History of colon polyps Health Maintenance Due Date Last Done Comments Depression Screening 06/23/2021 06/23/2020 CKD PHOS USE SMARTSET 99905 12/27/2021 12/27/2020 Albumin/Creatinine Ratio 05/30/2023 023, 06/27/2021, 05/24/2020, Additional history exists GFR 06/14/2023 12/14/2022, 05/11, 01/04/2022, Additional history exists CKD HGB USE SMARTSET 07047 12/15/202312/14, 12/14/2022, 10/03/2021, Additional history exists COLONOSCOPY-EVERY [...] filedocumented as of this encounter Care Teams Caustic Loader Relationship Specialty Start Date End Date Mohan Haddad DO [address] [place] [address] PCP - General Family Medicine 05/21/18 documented as of this encounter
--- OUTSIDE RECORDS SUMMARY | 2023-04-27 07:10 | External Medical Summary | Summary of Care ---
Author Name Unknown Organization [facility] Address [address] [place] [address] Phone [phone] Care Team Providers Care Bank Compliance Officer Name Role Phone Boo Mohan Alejandragerman Primary Care Provider Encounter Details Date Type Department Care Team ([facility] st Contact Info) Description 02/07/2023 2:15 PM EDT Telemedicine Urology [address] [address] Pepper Jarquin MD [address] [place] [id number] Prostate cancer (HCC)* Allergies Active Allergy Reactions Criticality Noted Date Comments Adhesive Tape Rash 05/21/2018 Allergic to adhesive only,not the " tape" documented as of this encounter (statuses as of 02/07/2023) Medications Medication Sig Dispensed Refills Start Date [...] Oral Tablet (Zyloprim) TAKE 1 TABLET DAILY. [id number] PRESCRIPTION 90 Tablet 1 11/28/2022 Active documented as of this encounter (statuses as of 02/07/2023) Active Problems Problem Noted Date Diagnosed Date Chronic kidney disease, stage 3a 06/14/2020 Overview: Per CKD protocol Prostate cancer 05/21/2019 History of actinic keratoses 01/06/2019 Obesity, Class I, BMI 30.0-34.9 (see actual BMI) 05/21/2018 documented as of this encounter (statuses as of 02/07/2023) Resolved Problems Problem Noted Date Diagnosed Date Resolved Date Prostate cancer 11/14/2018 05/21/2019 documented as of this encounter (statuses as of 02/07/2023) Immunizations Name Administration Dates Next Due COVID-19 mRNA, LNP-s, No Pre serve, 2-Dose Series ([employer]) 06/02/2020,05/12/2020 COVID-19, MRNA-LNP, 23-24, P F, 30 MCG/0.3 mL, 12 YRS AND ABOVE, IM (PFIZER-Comirnaty) 01/10/2023 COVID-19, mRNA, LNP-s, PF, B ooster, [...] as of this encounter Progress Notes * Pepper Jarquin MD - 02/07/2023 2:50 PM EDT Patient location: HOME. I was in a hospital or clinic location. After connecting through televideo,patient was verified with two unique identifiers. Patient (or authorized legal admitting representative) was then informed that this was a Telemedicine visit and being conducted confidentially over secure lines. Methods to assure confidentiality were taken. Patient acknowledged consent and understanding of pr ivacy and security of the Telemedicine visit. The patient agreed to participate. CC: prostate cancer HPI: Junior Burkett is a 78 year old male with prostate cancer dx in July 2018 3 cores + gl 3+4 up to 60% of core. He had XRT finished Nov 2018 and is feeling well. He had one episode of gross hematuria Feb 2019 one day 2 voids. None since. He has no rectal bleeding and is no longer using metamucil. Bladder function is back to baseline. He has nocturia but drinks some water before andre inhibitor med. Some nights his nocturia is hourly after 5am but more typically every 2-3 hrs. He cannot figure out the difference. He can have some nights of hourly. He weaned off tamsulosin fall 2019. PMH- colonoscopy done this year normal. ROS- no fevers/chills/nausea/emesis/chest pain/shortness of breath/ -change in bowel habits PSA Results: Lab Results Component Value Date/Time PSA - [facility] 0.05 12/14/2022 09:03 AM PSA - [facility] 0.04 05/30/2022 10:19 AM PSA - [facility] 0.05 01/04/2022 01:34 PM PSA - [facility] 0.12 12/24/2019 12:49 PM PSA - [facility] 0.53 05/19/2019 08:53 AM PSA - [facility] 6.81 (H) 05/17/2018 08:59 AM A/P prostate cancer Doing well No radiation side effects bladder or bowels Wonderful psa shar at 3+ yrs and still low check psa q 1 yr Still sees rad onc at [facility] in june 2021 rtc prn documented in this encounter Plan of Treatment Upcoming Encounters Date Type Department Care Team (Late st Contact Info) Description 03/05/2023 10:45 AM EST Office Visit Dermatology [facility] [place] [address] [place] [address] Juve Maurice MD [address] [place] [address] 08/07/2023 8:00 AM EDT Office Visit Family Practice [facility] [address] [place] [address] Mohan Haddad DO [address] [place] [address] Scheduled Procedures Name Priority Associated Diagnoses Date/Ti me COLONOSCOPY FLEXIBLE PROXIMAL DIAGNOSTIC Recall History of colon polyps Health Maintenance Due Date Last Done Comments Depression Screening 06/23/2021 06/23/2020 CKD PHOS USE SMARTSET 82761 12/27/2021 12/27/2020 Albumin/Creatinine Ratio 05/30/2023 023, 06/27/2021, 05/24/2020, Additional history exists GFR 06/14/2023 12/14/2022, 05/11, 01/04/2022, Additional history exists CKD HGB USE SMARTSET 09410 12/15/202312/14, 12/14/2022, 10/03/2021, Additional history exists COLONOSCOPY-EVERY [...] as of this encounter Visit Diagnoses Diagnosis Prostate cancer (HCC)- Primary Malignant neoplasm of prostate documented in this encounter Care Teams Bank Compliance Officer Relationship Specialty Start Date End Date Mohan Haddad DO [address] [place] [address] PCP - General Family Medicine 05/21/18 documented as of this encounter
--- OUTSIDE RECORDS SUMMARY | 2023-04-27 07:10 | External Medical Summary | Summary of Care ---
Author Name Unknown Organization [facility] Address [address] [place] [address] Phone [phone] Care Team Providers Care Commercial Baker Helper Name Role Phone Jasmin Haddad Primary Care Provider Reason for Visit * Reason Comments Follow Up Patient here for cry o of lesion above lip. He also thinks he has a wart starting on his left ring finger. Encounter Details Date Type Department Care Team (Late st Contact Info) Description 04/13/2023 9:00 AM EST Office Visit Dermatology [facility] [address] [facility] [address] [place] [address] Juve Maurice MD [address] [place] [address] Actinic keratosis* Allergies Active Allergy Reactions Criticality Noted Date Comments Adhesive Tape Rash 05/21/2018 Allergic to adhesive only,not the " tape" documented as of this encounter (statuses as of 04/13/2023) Medications Medication Sig Dispensed Refills Start Date [...] Oral Tablet (Zyloprim) TAKE 1 TABLET DAILY. [id number] PRESCRIPTION 90 Tablet 1 11/28/2022 Active predniSONE 20 MG Oral Tablet (Deltasone)Indicat ions:Sinobronchiti s 2 tabs in the morning x 5 d, then one a day x 5 days 15 Tablet 0 02/28/2023 Active documented as of this encounter (statuses as of 04/13/2023) Active Problems Problem Noted Date Diagnosed Date Chronic kidney disease, stage 3a 06/14/2020 Overview: Per CKD protocol Prostate cancer 05/21/2019 History of actinic keratoses 01/06/2019 Obesity, Class I, BMI 30.0-34.9 (see actual BMI) 05/21/2018 documented as of this encounter (statuses as of 04/13/2023) Resolved Problems Problem Noted Date Diagnosed Date Resolved Date Prostate cancer 11/14/2018 05/21/2019 documented as of this encounter (statuses as of 04/13/2023) Immunizations Name Administration Dates Next Due COVID-19 mRNA, LNP-s, No Pre serve, 2-Dose Series ([employer]) 06/02/2020,05/12/2020 COVID-19, MRNA-LNP, 23-24, P F, 30 MCG/0.3 mL, 12 YRS AND ABOVE, IM (PFIZER-Comirnaty) 01/10/2023 COVID-19, mRNA, LNP-s, PF, B ooster, 100mcg/0.5mg (Moderna) 07/19/2021,02/10/2021 Covid-19, Mrna, Lnp-s, Pf, B ivalent, 30 Mcg, IM, 12 yrs and above (Pfizer) 01/10/2022 Pneumococcal Conjugate Vacc, 13 Valent (Prevnar) 03/26/2015,01/06/2010 Pneumococcal Polysaccharide PPV23 (Pneumovax) 01/06/2010,04/30/2000 RSV Vac., Recomb, Adjuvant, PF,0.5 Ml (Arexvy) 12/19/2022 Season Influenza, Quad, PF, [...] Progress Notes * Juve Maurice MD - 04/13/2023 9:20 AM EST SUBJECTIVE: Chief Complaint: Chief Complaint Patient presents with Follow Up Patient here for cryo of lesion above lip. He also thinks he has a wart starting on his left ring finger. HPI: Junior Burkett is a 78 year old male seen for follow up of Actinic keratosis A. Skin, left upper cutaneous lip, shave: Pigmented actinic keratosis OBJECTIVE: GEN: Healthy, alert, no distress, appears oriented, pleasant, and cooperative SKIN: Problem focused exam reveals: Left upper cutaneous lip - dry gritty erythematous papule with scar ASSESSMENT/PLAN: Actinic keratosis -The diagnosis and malignant potential of the lesion was explained. Treatment options were reviewedincluding cryotherapy, topical medications, and observation. All questions were addressed. Procedure - Cryotherapy (Premalignant Destruction) -The patient would like to proceed with cryosurgery;Cryosurgery explained to the patient, consent obtained, patient, site and procedure verified, and then cryotherapy was performed with Liquid Nitrogen via cryo spray unit to 1 lesions. Location noted in physical exam. Post op course explained. -Discussed that if any of these lesions fail to completely resolve after treatment patient should call me for re-evaluation Juve Maurice MD Ref: SELF[[id number]] NO STRE[address] ADDRESS AVAILABLE None (office) None (fax) PCP: JASMIN HADDAD [address] [place] [address] [phone] documented in this encounter Nursing Notes * GerardoChantelle, EARNEST - 04/13/2023 9:01 AM EST Patient identified by name and date of . Do you have any concerns about pain management for today's visit? No Living Will or Advance Directive for Health Care as noted on problem list. [facility] is a way you can talk to your provider online through e-mail. Would you like to sign up? I can activate it for you? ALREADY ACTIVE Chief Complaint Patient presents with Follow Up Patient here for cryo of lesion above lip. He also thinks he has a wart starting on his left ring finger. documented in this encounter Plan of Treatment Upcoming Encounters Date Type Department Care Team (Late st Contact Info) Description 08/07/2023 8:00 AM EDT Office Visit Family Practice [facility] [address] [place] [address] Jasmin Haddad, [address] [place] [address] 03/17/2024 9:45 AM EST Office Visit Dermatology [facility] [address] [facility] [place] [address] Juve Maurice MD [address] [facility] [address] [place] [address] Scheduled Procedures Name Priority Associated Diagnoses Date/Ti me COLONOSCOPY FLEXIBLE PROXIMAL DIAGNOSTIC Recall History of colon polyps Health Maintenance Due Date Last Done Comments Depression Screening 06/23/2021 06/23/2020 CKD PHOS USE SMARTSET 19174 12/27/2021 12/27/2020 Albumin/Creatinine Ratio 05/30/2023 023, 06/27/2021, 05/24/2020, Additional history exists GFR 06/14/2023 12/14/2022, 05/11, 01/04/2022, Additional history exists CKD HGB USE SMARTSET 41649 12/15/202312/14, 12/14/2022, 10/03/2021, Additional history exists COLONOSCOPY-EVERY [...] of this encounter Visit Diagnoses Diagnosis Actinic keratosis- Primary documented in this encounter Care Teams Commercial Baker Helper Relationship Specialty Start Date End Date Jasmin Haddad DO [address] [place] [address] PCP - General Family Medicine 05/21/18 documented as of this encounter
--- OUTSIDE RECORDS SUMMARY | 2023-04-27 07:10 | External Medical Summary | Summary of Care ---
Author Name Unknown Organization [facility] Address [address] [place] [address] Phone [phone] Care Team Providers Care Information Security Analyst Name Role Phone Boo Mohan Alejandragerman Primary Care Provider Reason for Visit * Reason Comments Cough "Deep" in chest; pro ductive cough Encounter Details Date Type Department Care Team ([facility] st Contact Info) Description 02/28/2023 10:30 AM [facility] Convenient Care Visit [facility] [address] [place] [address] Chichi Marroquin PA-C [address] [place], [place] [address] Sinobronchitis* Allergies Active Allergy Reactions Criticality Noted Date [...] Oral Tablet (Zyloprim) TAKE 1 TABLET DAILY. [id number] PRESCRIPTION 90 Tablet 1 11/28/2022 Active predniSONE [...] mRNA, LNP-s, No Pre serve, 2-Dose Series ([employer]) 06/02/2020,05/12/2020 COVID-19, MRNA-LNP, 23-24, P F, 30 MCG/0.3 mL, 12 YRS AND ABOVE, IM (PFIZER-[facility]) 01/10/2023 COVID-19, mRNA, LNP-s, PF, B ooster, [...] Cigarettes Q uit: 10[birth year]05[birth year]1970 Smokeless Tobacco: Never Tobacco Cessation:Counseling Given: Not Answered Alcohol Use Standard Drinks/Week Comments Yes 1 [...] on file documented as of this encounter Last Filed Vital Signs Vital Sign Reading Time Taken Comments Blood Pressure 124/74 02/28/2023 10:35 AM EST Pulse 55 02/28/2023 10:35 AM EST Temperature 36.8 C (98.3 F) 02/28/2023 10:[address] Respiratory Rate 20 02/28/2023 10:35 AM EST Oxygen Saturation 95% 02/28/2023 10:35 AM EST Inhaled Oxygen Concentration - - Weight 119 kg (262 lb 6.4 oz) 02/28/2023 10:35 A M EST Height - - Body Mass Index 33.69 04/28/2022 9:23 AM EST documented in this encounter Progress Notes * Chichi Marroquin PA-C - 02/28/2023 10:45 AM EST Subjective: Nursing Notes: Pepper Burt LPN 02/28/23 1040 Signed Junior Burkett is a 78 year old male who presents to walk-in clinic today complaining of Chief Complaint Patient presents with Cough "Deep" in chest; productive cough Also, states while laying on back with open mouth breathing he noticed wheezing. Negative home test for COVID on Sunday How lonwks Tried: was taking prescription cough medicine but is no longer working. Pt accompanied by: self. Sx are cough, post nasal drip, was feeling better, Has promethazine codeine and worked earlier and last night did not work, cough feels like getting deeper, no sick contacts at home. Sig med hx/risk factors: HTN had flu, latest covid, RSV shots this year. Review of Systems Constitutional: Positive for fatigue. Negative for activity change, appetite change and fever. HENT: Positive for congestion, postnasal drip and rhinorrhea. Negative for ear pain, sinus pressure, sinus pain, sore throat and voice change. Eyes: Negative for discharge and redness. Respiratory: Positive for cough, chest tightness, shortness of breath and wheezing (when lying downon back and left side). Cardiovascular: Negative for chest pain. Gastrointestinal: Negative for abdominal pain, diarrhea, nausea and vomiting. Musculoskeletal: Negative for arthralgias, neck pain and neck stiffness. Skin: Negative. Allergic/Immunologic: Negative for environmental allergies. Neurological: Negative for dizziness and headaches. Hematological: Negative for adenopathy. PMH: Patient Active Problem List Diagnosis Code Obesity, Class I, BMI 30.0-34.9 (see actual BMI) E66.9 History of actinic keratoses Z87.2 Prostate cancer (HCC) C61 Chronic kidney disease, stage 3a N18.31 Current Outpatient Medications Medication Sig Dispense Refill aspirin 325 MG Tablet Take 1 Tablet by mouth in the morning. Multiple Vitamins-Minerals (CENTRUM ADULTS) TABS Take by mouth. Loratadine 10 MG Cap Take 1 Capsule by mouth in the morning. Fluocinonide 0.05 % External Ointment Apply topically to affected area 2 times a day . Apply to arms and legs for flares of rash 60 g 1 Metoprolol Succinate ER 25 MG Oral Tablet Extended Release 24 Hour (Toprol XL) Take 0.5 Tablets by mouth at bedtime. 45 Tablet 3 Lisinopril 10 MG Oral Tablet (Prinivil) Take 1 Tablet by mouth in the morning. 90 Tablet 3 Allopurinol 300 MG Oral Tablet (Zyloprim) TAKE 1 TABLET DAILY. [id number] PRESCRIPTION 90 Tablet 1 predniSONE 20 MG Oral Tablet (Deltasone) 2 tabs in the morning x 5 d, then one a day x 5 days 15 Tablet 0 Amoxicillin-Pot Clavulanate 875-125 MG Oral Tablet (Augmentin) Take 1 Tablet by mouth in the morning and 1 Tablet before bedtime. Do all this for 10 days. 20 Tablet 0 No current facility-administered medications for this visit. Past Medical History: Diagnosis Date Adenoma of colon at splenic flexure 10/2016 Benign Past Surgical History: Procedure Laterality Date COLONOSCOPY, DIAGNOSTIC (RECTUM) 05/01/2022 benign adenomatous polyp, diverticulosis, repeat 3 yrs / COLONOSCOPY FLEXIBLE PROXIMAL DIAGNOSTIC performed by Meredith Valdovinos DO at ENDOSCOPY [facility] PROSTATE BIOPSY 08/05/2018 Dr Jarquin in office REMOVAL OF EYELID LESION Right 09/28/2021 Dr. Colón lesion excision Review of patient's allergies indicates: Allergen Reactions Adhesive Tape Rash Allergic to adhesive only,not the " tape" Objective: BP 124/74 | Pulse 55 | Temp 36.8 C (98.3 F) (Tympanic) | Resp 20 | Wt 119 kg (262 lb 6.4 oz) | SpO2 95% | BMI 33.69 kg/m | BSA 2.49 m Physical Exam Constitutional: Appearance: Normal appearance. He is normal weight. HENT: Head: Normocephalic. Right Ear: Tympanic membrane, ear canal and external ear normal. Left Ear: Tympanic membrane, ear canal and external ear normal. Nose: No congestion or rhinorrhea. Mouth/Throat: Pharynx: Posterior oropharyngeal erythema present. No oropharyngeal exudate. Eyes: Extraocular Movements: Extraocular movements intact. Conjunctiva/sclera: Conjunctivae normal. Cardiovascular: Rate and Rhythm: Normal rate and regular rhythm. Heart sounds: Normal heart sounds. Pulmonary: Effort: Pulmonary effort is normal. Breath sounds: Normal breath sounds. No wheezing or rhonchi. Musculoskeletal: General: Normal range of motion. Cervical back: Normal range of motion. No rigidity or tenderness. No muscular tenderness. Lymphadenopathy: Cervical: Cervical adenopathy present. Skin: Findings: No rash. Neurological: Mental Status: He is alert and oriented to person, place, and time. Psychiatric: Mood and Affect: Mood normal. Thought Content: Thought content normal. Judgment: Judgment normal. ASSESSMENT/PLAN: Sinobronchitis (Primary) - predniSONE 20 MG Oral Tablet (Deltasone); 2 tabs in the morning x 5 d, then one a day x 5 days - Amoxicillin-Pot Clavulanate 875-125 MG Oral Tablet (Augmentin); Take 1 Tablet by mouth in the morning and 1 Tablet before bedtime. Do all this for 10 days. Discussed home care and that mostly is assoc w post nasal drip and lungs were pretty good. [facility] ed h/o provided on self care and sinusitis Return instruction reviewed with pt in detail. Reasons to report to the ED were also reviewed. Voiced understanding Advised to follow up if no improvement in 3-5days. Chichi Marroquin PA-C documented in this encounter Nursing Notes * Pepper Burt LPN - 02/28/2023 10:37 AM EST Junior Burkett is a 78 year old male who presents to walk-in clinic today complaining of Chief Complaint Patient presents with Cough "Deep" in chest; productive cough Also, states while laying on back with open mouth breathing he noticed wheezing. Negative home test for COVID on Sunday How lonwks Tried: was taking prescription cough medicine but is no longer working. Pt accompanied by: self. documented in this encounter Miscellaneous Notes * Pt Handout (on AVS) - Chichi Marroquin PA-C - 02/28/2023 10:57 AM EST Images from the original note were not included. [address] Acute Bronchitis Your healthcare provider has told you that you have acute bronchitis. Bronchitis is infection or inflammation of the airways in the lungs (bronchial tubes). Normally, air moves easily in and out of the airways. Bronchitis narrows the airways. This makes it harder for air to flow in and out of the lungs. This causes symptoms, such as shortness of breath, coughing up yellow or green mucus, and wheezing. Bronchitis can be acute or chronic. Acute means it happens quickly and goes away in a short time. Chronic means a condition lasts a long time and often comes back. Most people with acute bronchitis get better in 1 to 2 weeks. What causes acute bronchitis? Acute bronchitis is usually caused by a virus, such as a cold or the flu. In rare cases, it may be caused by bacteria. Certain factors make it more likely for a cold or flu to turn into bronchitis. These include being very young, being elderly, having a heart or lung problem, or having a weak immune system. Smoking also makes bronchitis more likely. When bronchitis develops, the airways become swollen. The airways may also become infected with bacteria. This is known as a secondary infection. Symptoms of acute bronchitis Symptoms can include: Coughing with mucus Wheezing Feeling short of breath Chest pain Fever Feeling tired (fatigue) Diagnosing acute bronchitis Your healthcare provider will ask about your symptoms and health history. They will give you a physical exam. This will include listening to your lungs while you breathe. You may have a chest X-ray to look for infection in the lungs (pneumonia) if you have had a fever. You may also have a blood test or nose or throat swab to check for infection. Treating acute bronchitis Bronchitis usually goes away in 1 to 2 weeks without treatment. You can help feel better by: Taking medicine as directed. Talk to your healthcare provider before taking any otqd-dmp-bbfrxohiwwkfghvo (OTC). Some OTC medicines help relieve inflammation in your bronchial tubes. They can also thin mucus. This makes it easier to cough up. Your healthcare provider may prescribe an inhaler tohelp open up the bronchial tubes. Take any antibiotic prescribed exactly as directed. Most of the time, acute bronchitis is caused by a viral infection. Antibiotics are usually not prescribed for viral infections. Drinking plenty of fluids, such as water, juice, or warm soup. Fluids thin mucus so that you cancough it up. This helps you breathe more easily. Fluids also prevent dehydration. Using a humidifier. This can help reduce coughing. Getting plenty of rest Not smoking. Also, don't let anyone else smoke in your home. In public places, move away from secondhand smoke. Recovery and follow-up Follow up with your healthcare provider. You will likely feel better in 1 to 2 weeks. But you may have a dry cough for a longer time. Let your provider know if you still have symptoms other than a dry cough after 2 weeks. Tell them if you get bronchial infections often. Self-care tips To get relief from your symptoms and prevent bronchitis: Stop smoking. Stopping smoking is the most important step you can take to treat bronchitis. If you need help stopping smoking, talk with your healthcare provider. Stay away from secondhand smoke and other irritants. Try to stay away from smoke, chemicals, fumes, and dust. Don?t let anyone smoke in your home. Stay indoors on smoggy days. Prevent lung infections. Ask your healthcare provider about vaccines such as for the flu and pneumonia. Take steps to prevent colds and other lung infections. Stay away from crowds during cold andflu season. Stay away from others who are sick. Wash your hands well. Wash your hands often with soap and water for at least 20 seconds. Use an alcohol-based hand council on aging director with at least 60% alcohol when you can?t wash your hands. When to call your healthcare provider Call the healthcare provider if you have any of these: Fever of 100.4F ( 38.0C) or higher, or as directed by your healthcare provider Symptoms that get worse, or new symptoms Symptoms that don?t start to get better in 1 week Call 911 Call 911 if you have: Trouble breathing that doesn't get better with treatment Skin, lips, or nails that look blue, olivares, or pale Last Reviewed Date: 06/07/202119994984-0045 [employer]. All rights reserved. This information is not intended as a substitute for professional medical care. Always follow your healthcare professional's instructions. * Pt Handout (on AVS) - Chichi Marroquin PA-C - 02/28/2023 10:57 AM EST Images from the original note were not included. 25215 Self-Care for Sinusitis Sinusitis can often be managed with self-care. Self-care can keep sinuses moist and make you feel more comfortable. Remember to follow your healthcare provider's instructions closely. This can make abig difference in getting your sinus problem under control. Drink fluids Drinking extra fluids helps thin your mucus. This lets it drain from your sinuses more easily. Havea glass of water every hour or 2. A humidifier helps in much the same way. Fluids can also offset the drying effects of certain medicines. If you use a humidifier, follow the product maker's instructions on how to use it. Clean it on a regular schedule. Drinking plenty of water can help sinuses drain. Use saltwater rinses Rinses help keep your sinuses and nose moist. Mix a teaspoon of salt in 8 ounces of fresh, warm water. Use a bulb syringe to gently squirt the water into your nose a few times a day. You can also buyready-made saline nasal sprays. Apply hot or cold packs Applying warm moist compresses over the nose and forehead may make you feel more comfortable. Breathing steam from a bowl of hot water or shower may also help. Some people also find ice packs effective for relieving pain. Medicines Your healthcare provider may prescribe medicines to help treat your sinusitis. If you have a bacterial infection, antibiotics are effective treatments. If you are prescribed antibiotics, take all pills on schedule until they are gone, even if you feel better. Decongestants help relieve swelling. Use decongestant sprays for short periods only under the direction of your healthcare provider. If you have allergies, your healthcare provider may prescribe medicines to help relieve them. Last Reviewed Date: 2021 [employer]. All rights reserved. This information is not intended as a substitute for professional medical care. Always follow your healthcare professional's instructions. documented in this encounter Plan of Treatment Upcoming Encounters Date Type Department Care Team (Late st Contact Info) Description 03/05/2023 10:45 AM EST Office Visit Dermatology [facility] [address] [facility] [place] [address] Juve Maurice MD [address] [facility] [place] [address] 08/07/2023 8:00 AM EDT Office Visit Family Practice [facility] [address] [place] [address] Mohan Haddad DO [address] [place] [address] Scheduled Procedures Name Priority Associated Diagnoses Date/Ti me COLONOSCOPY FLEXIBLE PROXIMAL DIAGNOSTIC Recall History of colon polyps Health Maintenance Due Date Last Done Comments Depression Screening 06/23/2021 06/23/2020 CKD PHOS USE SMARTSET [id number] 12/27/2021 12/27/2020 Albumin/Creatinine Ratio 05/30/2023 023, 06/27/2021, 05/24/2020, Additional history exists GFR 06/14/2023 12/14/2022, 05/11, 01/04/2022, Additional history exists CKD HGB USE SMARTSET 48603 12/15/202312/14, 12/14/2022, 10/03/2021, Additional history exists COLONOSCOPY-EVERY [...] as of this encounter Visit Diagnoses Diagnosis Sinobronchitis- Primary Unspecified sinusitis (chronic) documented in this encounter Care Teams Information Security Analyst Relationship Specialty Start Date End Date Mohan Haddad DO [address] [place] [address] PCP - General Family Medicine 05/21/18 documented as of this encounter
--- OUTSIDE RECORDS SUMMARY | 2023-04-27 07:10 | External Medical Summary | Summary of Care ---
Author Name Unknown Organization [facility] Address [address] [place] [address] Phone [phone] Care Team Providers Care Lathe Machine Operator Name Role Phone Mohan Haddad DO Primary Care Provider Encounter Details Date Type Department Care Team (Late st Contact Info) Description 04/26/2023 Telephone Otolaryngology [facility] [address] [place] [address] Mohan Haddad DO [address] [facility] [place] [address] Allergies Active Allergy Reactions Criticality Noted Date Comments Adhesive Tape Rash 05/21/2018 Allergic to adhesive only,not the " tape" documented as of this encounter (statuses as of 04/26/2023) Medications Medication Sig Dispensed Refills Start Date [...] Oral Tablet (Zyloprim) TAKE 1 TABLET DAILY. [id number] PRESCRIPTION 90 Tablet 1 11/28/2022 Active predniSONE 20 MG Oral Tablet (Deltasone)Indicat ions:Sinobronchiti s 2 tabs in the morning x 5 d, then one a day x 5 days 15 Tablet 0 02/28/2023 Active documented as of this encounter (statuses as of 04/26/2023) Active Problems Problem Noted Date Diagnosed Date Chronic kidney disease, stage 3a 06/14/2020 Overview: Per CKD protocol Prostate cancer 05/21/2019 History of actinic keratoses 01/06/2019 Obesity, Class I, BMI 30.0-34.9 (see actual BMI) 05/21/2018 documented as of this encounter (statuses as of 04/26/2023) Resolved Problems Problem Noted Date Diagnosed Date Resolved Date Prostate cancer 11/14/2018 05/21/2019 documented as of this encounter (statuses as of 04/26/2023) Immunizations Name Administration Dates Next Due COVID-19 mRNA, LNP-s, No Pre serve, 2-Dose Series ([employer]) 06/02/2020,05/12/2020 COVID-19, MRNA-LNP, 23-24, P F, 30 MCG/0.3 mL, 12 YRS AND ABOVE, IM [facility] 01/10/2023 COVID-19, mRNA, LNP-s, PF, B ooster, [...] encounter Miscellaneous Notes * Telephone Encounter - Roxana Medel OSA - 04/26/2023 8:51 AM EST Called pt to set up new appointment with ent for nose bleeds.Nurse advised first avail. Offered himsooner appointment in [place] he did not want to travel. Scheduled for June 19 and added to wait list. LUDA Rubio documented in this encounter Plan of Treatment Upcoming Encounters Date Type Department Care Team (Late st Contact Info) Description 05/16/2023 10:30 AM EST Office Visit Cardiology, [facility] [address] [place] [address] Jose Mcmahon MD [address] [place] [address] 06/20/2023 9:40 AM EDT Office Visit Otolaryngology [facility] [address] [place] [address] Vaibhav Garcia PA-C [address] [place] [address] 08/07/2023 8:00 AM EDT Office Visit Family Practice [facility] [address] [place] [address] Mohan Haddad DO [address] [place] [address] 03/17/2024 9:45 AM EST Office Visit Dermatology [facility] [address] [facility] [place] [address] Juve Maurice MD [address] [place] [place] [address] Scheduled Procedures Name Priority Associated Diagnoses Date/Ti me COLONOSCOPY FLEXIBLE PROXIMAL DIAGNOSTIC Recall History of colon polyps Health Maintenance Due Date Last Done Comments Depression Screening 06/23/2021 06/23/2020 CKD PHOS USE SMARTSET 31130 12/27/2021 12/27/2020 Albumin/Creatinine Ratio 05/30/2023 023, 06/27/2021, 05/24/2020, Additional history exists GFR 06/14/2023 12/14/2022, 05/11, 01/04/2022, Additional history exists CKD HGB USE SMARTSET 31143 12/15/202312/14, 12/14/2022, 10/03/2021, Additional history exists COLONOSCOPY-EVERY [...] filedocumented as of this encounter Care Teams Lathe Machine Operator Relationship Specialty Start Date End Date Mohan Haddad DO [address] [place] [address] PCP - General Family Medicine 05/21/18 documented as of this encounter
--- NOTE | 2023-04-27 07:11 | XRay Report ---
SINGLE VIEW CHEST CLINICAL HISTORY: Atypical chest pain. FINDINGS: An AP, portable, upright chest radiograph is obtained. No prior studies are available for c omparison at the time of dictation. The heart is enlarged. The pulmonary vasculature is noncongested. Nonspecific interstitial thickening is likely chronic. There is bibasilar scarring/atelectasis. The lungs and pleural spaces are otherwise clear. No pneumothorax is seen. The skeletal structures are os teopenic. The bony thorax is grossly intact. Arthritic change is noted in the left shoulder. IMPRESSION: Cardiomegaly with no acute cardiopulmonary abnormality identified ACT 112: Negative or not required by law. Electronically signed by: Ash Coe M.D. 04/27/2023 7:10 AM
--- OUTSIDE RECORDS SUMMARY | 2023-04-27 07:11 | External Medical Summary | Summary of Care ---
Author Name Unknown Organization [facility] Address [address] [place] [address] Phone [phone] Care Team Providers Care Standards Engineer Name Role Phone Mohan Haddad DO Primary Care Provider Reason for Visit * Reason Onset Date Comments Health Maintenance 11/29/2022 Encounter Details Date Type Department Care Team Description 11/29/2022 Telephone Family Practice [facility] [address] [place] [address] Mohan Haddad DO [address] [place] [address] Health Maintenance Allergies Active Allergy Reactions Severity Noted Date Comments Adhesive Tape Rash 05/21/2018 Allergic to adhesive only,not the " tape" documented as of this encounter (statuses as of 11/29/2022) Medications Medication Sig Dispensed Refills Start Date [...] Oral Tablet (Zyloprim) TAKE 1 TABLET DAILY. [id number] PRESCRIPTION 90 Tablet 1 11/28/2022 Active documented as of this encounter (statuses as of 11/29/2022) Active Problems Problem Noted Date Chronic kidney disease, stage 3a 021 Overview: Per CKD protocol Prostate cancer 05/21/2019 History of actinic keratoses 01/06/2019 Obesity, Class I, BMI 30.0-34.9 (see act ual BMI) 05/21/2018 documented as of this encounter (statuses as of 11/29/2022) Resolved Problems Problem Noted Date Resolved Date Prostate cancer 11/14/2018 05/21/2019 documented as of this encounter (statuses as of 11/29/2022) Immunizations Name Administration Dates Next Due COVID-19 mRNA, LNP-s, No Pre serve, 2-Dose Series ([employer]izer) 06/02/2020,05/12/2020 Covid-19 Mrna, Lnp-s, No Pre serve, Booster (Moderna) 07/19/2021,02/10/2021 Covid-19, Mrna, Lnp-s, Pf, B ivalent, 30 Mcg, IM, 12 yrs and above (Pfizer) 01/10/2022 Pneumococcal Conjugate Vacc, 13 Valent (Prevnar) 03/26/2015,01/06/2010 Pneumococcal Polysaccharide PPV23 (Pneumovax) 01/06/2010,04/30/2000 Season Influenza, Quad, PF, Adjuvanted, 65+ Yrs, [...] = 0.6 oz pur e alcohol) occ Food Insecurity Answer Date Recorded Within the past 12 months, y ou worried that your food would run out before you got money to buy more. Never true 05/21/2019 Within the past 12 months, t he food you bought just didn't last and you didn't have money to get more. Never true 05/21/2019 Sex Assigned at Date Recorded Male 05/21/2019 9:[address] Job Start Date Occupation Industry Not on file Not on file Not on file documented as of this encounter Miscellaneous Notes * Telephone Encounter - Gema Faria LPN - 11/29/2022 2:27 PM EDT Care Gaps Comprehensive Care Outreach Last Office/Telemedicine Visit: 05/31/2022 (in office), Visit date not found (telemedicine) Next Office Visit: 12/18/2022 Hemoglobin AIC Results: Lab Results Component Value Date/Time HEMOGLOBIN A1C - [facility] 5.4 05/30/2022 10:19 AM HEMOGLOBIN A1C - [facility] 5.3 01/04/2022 01:34 PM HEMOGLOBIN A1C - [facility] 5.5 06/27/2021 09:39 AM HEMOGLOBIN A1C - [facility] 5.4 05/19/2019 08:53 AM Reviewed Health Maintenance below: Health Maintenance Topic Date Due Depression Screening, Annual for Pts 12 and Over 06/23/2021 CKD PHOS USE SMARTSET 93512 12/27/2021 CKD HGB USE SMARTSET 44455 10/03/2022 GFR 11/27/2022 Influenza Vaccine (FLU shot) (1) 12/08/2022 Labs already ordered Awv my g Care Gap Outreach Action Taken: Myportal message sent documented in this encounter Plan of Treatment Upcoming Encounters Date Type Specialty Care Team Description 12/18/2022 Office Visit Family Medicine Mohan Haddad DO [address] [place] [address] 01/10/2023 Telemedicine Urology Pepper Jarquin MD [address] [place] [address] 02/26/2023 Office Visit Dermatology Christine Huddleston MD Scheduled Procedures Name Priority Associated Diagnoses Date/Ti me COLONOSCOPY FLEXIBLE PROXIMAL DIAGNOSTIC Recall History of colon polyps Health Maintenance Due Date Last Done Comments Depression Screening, Annual for Pts 12 and Over 06/23/2021 06/23/2020 CKD PHOS USE SMARTSET 28574 12/27/2021 12/27/2020 CKD HGB USE SMARTSET 17578 10/03/202210/03, 10/03/2021, 06/27/2021, Additional history exists GFR 11/27/2022 05/30/2022, 12/09, 10/03/2021, Additional history exists Influenza Vaccine (FLU shot) (#1) 2022 01/27/2022, 01/26/2022, 01/31/2021, Additional history exists Albumin/Creatinine Ratio 05/30/2023 023, 06/27/2021, 05/24/2020, Additional history exists COLONOSCOPY-EVERY 3 YRS AGES 18-100 05/01/2025 05/01/2022, 05/01/2022 DTaP,Tdap,and Td Vaccines (3 - Td or Tdap) 05/31/2032 05/31/2022, 01/17/2012, 01/06/2010 Zoster Vaccines Completed 10/10/2019, 070 06/2019, 04/16/2019, Additional history exists COVID-19 Vaccine Completed 01/10/2022, 03/2022, 02/10/2021, Additional history exists COLONOSCOPY-EVERY 5 YRS AGES 18-100 Discontinued 05/01/2022, 05/01/2022 GARDASIL-HPV IMMUNIZATION SERIES Aged Out No longer eligible based on patient's age to complete this topic Hepatitis B Aged Out No longer eligi ble based on patient's age to complete this topic Hepatitis C Screening Discontinued MENINGOCOCCAL (MENACTRA/MENVEO) Aged Out No longer eligible based on patient's age to complete this topic documented as of this encounter Medical Devices Not on filedocumented as of this encounter Care Teams Standards Engineer Relationship Specialty Start Date End Date Mohan Haddad DO [address] [place] [address] PCP - General Family Medicine 05/21/18 documented as of this encounter
--- OUTSIDE RECORDS SUMMARY | 2023-04-27 07:11 | External Medical Summary ---
Author Name Unknown Address Unknown Organization K01:[facility] [address] [facility] [address] Laboratory Report Ordering Provider Test Date Status TOBIAS CASTELLANOS 12/14/2022 09:03:41 Final Observation Date Value Abnormality Reference (Units ) Status Triglyceride 12/14/2022 09:03:41 66 <=174 ( mg/dL) Final Triglyceride Reference Range s (mg/dL):
<150 Acceptable
150-174 Borderline high
175-499 High
>=500 Very high Cholesterol 12/14/2022 09:03:41 99 <200 (mg /dL) Final Total Cholesterol Reference Ranges (mg/dL):
<200 Desirable
200-239 Borderline high
>=240 High HDL 12/14/2022 09:03:41 43 >39 (mg/dL ) Final HDL Cholesterol Reference Ra nges (mg/dL):
>=60 High (Desirable)
<50 Low (Undesirable) For Females
<40 Low (Undesirable) For Males NON-HDL CHOLESTEROL 12/14/2022 09:03:41 56 <=159 (mg/dL) Final Non-HDL Cholesterol Referenc e Range (mg/dL):
<100 Target level for high risk ASCVD patient
<130 Optimal for general population
130-159 Near optimal for general population
160-189 Borderline High
190-219 High
>=220 Very High LDL, (calculated) 12/14/2022 09:03:41 43 <= 129 (mg/dL) Final LDL Cholesterol Reference Ra nges (mg/dL):
<70 Target level for high risk ASCVD patient
<100 Optimal for general population
100-129 Near optimal for general population
130-159 Borderline high
160-189 High
>=190 Very high Performing Location [facility] - [address] [facility] [address]
--- OUTSIDE RECORDS SUMMARY | 2023-04-27 07:11 | External Medical Summary | Summary of Care ---
Author Name Unknown Organization [facility] Address [address] [place] [address] Phone [phone] Care Team Providers Care Drinking Water Technician Name Role Phone Jasmin Haddad DO Primary Care Provider Reason for Visit * Reason Comments eRx-Medication Refill Encounter Details Date Type Department Care Team Description 11/27/2022 Refill Family Practice [facility] [address] [facility] [place] [id number] Jasmin Haddad DO [address] [facility] [place] [address] Allergies Active Allergy Reactions Severity Noted Date Comments Adhesive Tape Rash 05/21/2018 Allergic to adhesive only,not the " tape" documented as of this encounter (statuses as of 11/28/2022) Medications Medication Sig Dispensed Refills Start Date End Date Status aspirin 325 MG Tablet Take 1 Tablet by mouth in the morning. 0 Active Multiple Vitamins-Mineral s (CENTRUM ADULTS) TABS Take by mouth. 0 [...] Oral Tablet Extended Release 24 Hour (Toprol XL)Indications:F requent PVCs Take 0.5 Tablets by mouth at bedtime. 45 Tablet 3 10/02/2022 Active Lisinopril 10 MG Oral Tablet (Prinivil) Take 1 Tablet by mouth in the morning. 90 Tablet 3 10/16/2022 Active Allopurinol 300 MG Oral Tablet (Zyloprim) TAKE 1 TABLET DAILY. [id number] PRESCRIPTION 90 Tablet 1 11/28/2022 Active Allopurinol 300 MG Oral Tablet (Zyloprim) TAKE 1 TABLET DAILY. [id number] PRESCRIPTION 90 Tablet 3 12/09/2021 3 Discontinued documented as of this encounter (statuses as of 11/28/2022) Active Problems Problem Noted Date Chronic kidney disease, stage 3a 021 Overview: Per CKD protocol Prostate cancer 05/21/2019 History of actinic keratoses 01/06/2019 Obesity, Class I, BMI 30.0-34.9 (see act ual BMI) 05/21/2018 documented as of this encounter (statuses as of 11/28/2022) Resolved Problems Problem Noted Date Resolved Date Prostate cancer 11/14/2018 05/21/2019 documented as of this encounter (statuses as of 11/28/2022) Immunizations Name Administration Dates Next Due COVID-19 mRNA, LNP-s, No Pre serve, 2-Dose Series ([employer]) 06/02/2020,05/12/2020 Covid-19 Mrna, Lnp-s, No Pre serve, [...] encounter Miscellaneous Notes * Telephone Encounter - Donovan Encinas RPh - 11/28/2022 6:40 AM EDTSigned Prescriptions: Disp Refills Allopurinol 300 MG Oral Tablet (Zyloprim) 90 Tab*1 Sig: TAKE 1 TABLET DAILY. [id number] PRESCRIPTIONAuthorizing Provider: JASMIN HADDAD User: DONOVAN ENCINAS documented in this encounter Plan of Treatment Upcoming Encounters Date Type Specialty Care Team Description 12/18/2022 Office Visit Family Medicine Jasmin Haddad, [address] [place] [address] 01/10/2023 Telemedicine Urology Pepper Jarquin MD [address] [place] [address] 02/26/2023 Office Visit Dermatology Christine Huddleston MD Scheduled Procedures Name Priority Associated Diagnoses Date/Ti me COLONOSCOPY FLEXIBLE PROXIMAL DIAGNOSTIC Recall History of colon polyps Health Maintenance Due Date Last Done Comments Depression Screening, Annual for Pts 12 and Over 06/23/2021 06/23/2020 CKD PHOS USE SMARTSET 59198 12/27/2021 12/27/2020 CKD HGB USE SMARTSET 92643 10/03/202210/03, 10/03/2021, 06/27/2021, Additional history exists GFR [...] Completed 10/10/2019, 0706/2019, 04/16/2019, Additional history exists COVID-19 Vaccine Completed [...] filedocumented as of this encounter Care Teams Drinking Water Technician Relationship Specialty Start Date End Date Jasmin Haddad DO [address] [place] [address] PCP - General Family Medicine 05/21/18 documented as of this encounter
--- OUTSIDE RECORDS SUMMARY | 2023-04-27 07:11 | External Medical Summary | Summary of Care ---
Author Name Unknown Organization [facility] Address [address] [place] [address] Phone [phone] Care Team Providers Care Child Development Teacher Name Role Phone Mohan Haddad DO Primary Care Provider Reason for Referral * Evaluate & Treat - Unlimited Visits (Within 10 days (routine)) - Authorized Specialty Diagnoses / Procedures Referred By Contact Referred To Contact Cardiovascular Medicine / Cardiology Diagnoses Dyslipidemia, goal LDL below 70 Mohan Haddad DO [address] [place] [address] Referral ID Status Reason Start Date Expiration Date Visits Requested Visits Authorized [id number] Authorized Specialty Services Required 12/18/2022 999 999 Question Answer Referral Priority Within 10 days (routine) To which of the following clinics are you referring your patient? General Cardiology Clinic Comments Needs f/u with cardiology Reason for Visit * Reason Comments Follow Up Pt being seen for 6 month f/u apt, has question about RSV and flu shots and wants to see Cardiology. Encounter Details Date Type Department Care Team Description 12/18/2022 Office Visit Family Practice [facility] [address] [place] [address] Mohan Haddad DO [address] [place] [address] Chronic kidney disease, stage 3a*; Prostate cancer (HCC); Dyslipidemia, goal LDL below 70; Encounter for long-term (current) use of medications Allergies Active Allergy Reactions Severity Noted Date Comments Adhesive Tape Rash 05/21/2018 Allergic to adhesive only,not the " tape" documented as of this encounter (statuses as of 12/18/2022) Medications Medication Sig Dispensed Refills Start Date [...] Oral Tablet (Zyloprim) TAKE 1 TABLET DAILY. [id number] PRESCRIPTION 90 Tablet 1 11/28/2022 Active documented as of this encounter (statuses as of 12/18/2022) Active Problems Problem Noted Date Chronic kidney disease, stage 3a 021 Overview: Per CKD protocol Prostate cancer 05/21/2019 History of actinic keratoses 01/06/2019 Obesity, Class I, BMI 30.0-34.9 (see act ual BMI) 05/21/2018 documented as of this encounter (statuses as of 12/18/2022) Resolved Problems Problem Noted Date Resolved Date Prostate cancer 11/14/2018 05/21/2019 documented as of this encounter (statuses as of 12/18/2022) Immunizations Name Administration Dates Next Due COVID-19 mRNA, LNP-s, No Pre serve, 2-Dose Series ([employer]) 06/02/2020,05/12/2020 COVID-19, mRNA, LNP-s, PF, B ooster, [...] Sign Reading Time Taken Comments Blood Pressure 120/68 12/18/2022 8:38 AM EDT Pulse 62 12/18/2022 8:38 AM EDT Temperature 36.4 C (97.5 F) 12/18/2022 8:38 AM ED T Respiratory Rate 16 12/18/2022 8:38 AM EDT Oxygen Saturation - - Inhaled Oxygen Concentration - - Weight 118.4 kg (261 lb) 12/18/2022 8:38 AM EDT Height - - Body Mass Index 33.51 04/28/2022 9:23 AM EST documented in this encounter Patient Instructions * Patient Instructions* Mohan Haddad, DO - 12/18/2022 8:41 AM EDT BMI (Body Mass Index) is the number obtained by dividing a person's weight in kilograms by his or her height in meters squared. BMI is used in determining obesity. BMI is not used to determine a person's actual percentage of body fat, but it is a good tool to customer orders clerk weight in terms of what is healthy and unhealthy. It is used to identify adults at increased risk for developing weight related medical problems. Estimated body mass index is 33.51 kg/m as calculated from the following: Height as of 04/28/22: 1.88 m (6' 2"). Weight as of this encounter: 118.4 kg (261 lb). Obesity - BMI 30 kg/m2 to 34.9 kg/mg - Obese individuals are at risk for developing: * Heart disease * Stroke * Diabetes * High Blood Pressure * High Cholesterol * GERD (acid reflux) * Sleep Apnea * Osteoarthritis * Fatty Liver Disease * Certain Types of Cancers * Gout * Gall Bladder Disease - Weight loss has been shown to decrease weight related medical problems. - Each additional 5 unit increase in BMI at/above 25 kg/m2 is linked to a 40% increase in from heart and coronary artery disease. - The lifespan of those with a BMI of 30-35 kg/m2 is reduced by two to four years compared to thosewith a normal BMI. - A 12-week weight management text message program is also available. Go to [employer] and seethe message under '[employer]' for more information and enrollment. Patient is Instructed to: Diet: * Limit total fat intake to no more than 40 grams per day (low fat diet). * Increase fruits and vegetables to 5 servings per day, combined. * Limited starches (breads, pasta, rice, potatoes, corn, cereals) to 4 servings per day. Avoid Calorie Containing Drinks: * No fruit juices, regular sodas or sweetened drinks. * Water is preferred - 64 ounces per day unless advised of a fluid restriction. * Diet sodas and drinks permitted. Keep Honest, Accurate Food logs: * www.[employer].[facility] * www.[employer] * If you bite it - write it! Weigh Yourself Weekly: * Morning is best. * Try to do this outside your home. * Have a friend/spouse remind you to weigh yourself, accountability to others helps. Perform 30 minutes of physical activity daily: * Can do all at once or 5 minutes 6 times per day * 8, 000-10,000 steps per day using a pedometer * Make it fun! documented in this encounter Progress Notes * Mohan Haddad DO - 12/18/2022 8:41 AM EDT Images from the original note were not included. Assessment and Plan Chronic kidney disease, stage 3a Stable renal function - PHOSPHORUS - CBC WITH WBC DIFFERENTIAL; Future - COMPREHENSIVE METABOLIC PANEL; Future - ALBUMIN / CREATININE RATIO, URINE; Future Prostate cancer (HCC) Stable PSA - PSA; Future Dyslipidemia, goal LDL below 70 Patient rescheduling with cardiology As Dr. Wilburn has left - CARDIOLOGY REFERRAL OP - COMPREHENSIVE METABOLIC PANEL; Future - LIPID PANEL WITH DIRECT LDL IF TG IS HIGH; Future Encounter for long-term (current) use of medications History of Present Illness Junior Burkett is a 77 year old male that presents for Follow Up (Pt being seen for 6 month f/u apt, has question about RSV and flu shots and wants to see Cardiology. ) Presents in f/u today Doing very well overall And compliant with medications Still is active golfing and Hunting and going to [employer] games Physical Exam Vitals: 12/18/22 0838 Temp: 36.4 C (97.5 F) Pulse: 62 Resp: 16 BP: 120/68 Physical Exam Vitals and nursing note reviewed. Constitutional: Appearance: Normal appearance. HENT: Head: Normocephalic and atraumatic. Right Ear: Tympanic membrane, ear canal and external ear normal. There is no impacted cerumen. Left Ear: Tympanic membrane, ear canal and external ear normal. There is no impacted cerumen. Nose: Nose normal. Mouth/Throat: Mouth: Mucous membranes are moist. Pharynx: Oropharynx is clear. Eyes: Extraocular Movements: Extraocular movements intact. Conjunctiva/sclera: Conjunctivae normal. Pupils: Pupils are equal, round, and reactive to light. Cardiovascular: Rate and Rhythm: Normal rate and regular rhythm. Heart sounds: Normal heart sounds. Pulmonary: Effort: Pulmonary effort is normal. Breath sounds: Normal breath sounds. Abdominal: General: Abdomen is flat. Palpations: Abdomen is soft. Musculoskeletal: General: Normal range of motion. Cervical back: Normal range of motion and neck supple. Lymphadenopathy: Cervical: No cervical adenopathy. Skin: General: Skin is warm and dry. Neurological: General: No focal deficit present. Mental Status: He is alert and oriented to person, place, and time. Wrap-Up Follow-up: Return in about 6 months (around 06/18/2023). | Check-out note: Please schedule with Lisandro samson with available provider Every 6 month visits Time: Total time today was 45 minutes excluding any time spent in the performance of separately billed services. Patient counseling on weight management given. documented in this encounter Plan of Treatment Upcoming Encounters Date Type Specialty Care Team Description 01/10/2023 Telemedicine Urology Pepper Jarquin MD [address] [place] [address] 02/26/2023 Office Visit Dermatology Christine Huddleston MD 08/07/2023 Office Visit Family Medicine Mohan Haddad DO [address] [facility] [place] [address] Scheduled Orders Name Type Priority Associated Diagnoses Orde r Schedule PHOSPHORUS Lab Routine Chronic kidney disease, stage 3a Ordered: 12/18/2022 CBC WITH WBC DIFFERENTIAL Lab Routine Chronic kidney disease, stage 3a Expected: 06/16/2023 (Approximate), Expires: 12/19/2023 COMPREHENSIVE METABOLIC PANEL Lab Routine Chronic kidney disease, stage 3a Dyslipidemia, goal LDL below 70 Expected: 06/16/2023 (Approximate), Expires: 12/19/2023 ALBUMIN / CREATININE RATIO, URINE Lab Routine Chronic kidney disease, stage 3a Expected: 06/16/2023 (Approximate), Expires: 12/19/2023 LIPID PANEL WITH DIRECT LDL IF TG IS HIGH Lab Routine Dyslipidemia, goal LDL below 70 Expected: 06/16/2023 (Approximate), Expires: 12/19/2023 PSA Lab Routine Prostate cancer (HCC) Expected: 06/16/2023 (Approximate), Expires: 12/18/2023 Scheduled Procedures Name Priority Associated Diagnoses Date/Ti me COLONOSCOPY FLEXIBLE PROXIMAL DIAGNOSTIC Recall History of colon polyps Scheduled Referrals Name Type Priority Associated Diagnoses Orde r Schedule CARDIOLOGY REFERRAL OP Referral Within 10 days (routine) Dyslipidemia, goal LDL below 70 Ordered: 12/18/2022 Health Maintenance Due Date Last Done Comments Depression Screening 06/23/2021 06/23/2020 CKD PHOS USE SMARTSET 27681 12/27/2021 12/27/2020 Influenza Vaccine (FLU shot) (#1) 2022 01/27/2022, 01/26/2022, 01/31/2021, Additional history exists Albumin/Creatinine Ratio 05/30/2023 023, 06/27/2021, 05/24/2020, Additional history exists GFR 06/14/2023 12/14/2022, 05/11, 01/04/2022, Additional history exists CKD HGB USE SMARTSET 36197 12/15/202312/14, 12/14/2022, 10/03/2021, Additional history exists COLONOSCOPY-EVERY [...] as of this encounter Visit Diagnoses Diagnosis Chronic kidney disease, stage 3a- Primary Prostate cancer (HCC) Malignant neoplasm of prostate Dyslipidemia, goal LDL below 70 Other and unspecified hyperlipidemia Encounter for long-term (current) use of medications Encounter for long-term (current) use of other medications documented in this encounter Care Teams Child Development Teacher Relationship Specialty Start Date End Date Mohan Haddad DO [address] [place] [address] PCP - General Family Medicine 05/21/18 documented as of this encounter
--- OUTSIDE RECORDS SUMMARY | 2023-04-27 07:11 | External Medical Summary | Summary of Care ---
Author Name Unknown Organization [facility] Address [address] [place] [address] Phone [phone] Care Team Providers Care Stone Decorator Name Role Phone Mohan Haddad DO Primary Care Provider Reason for Visit * Reason Comments Outpatient Testing Encounter Details Date Type Department Care Team Description 12/14/2022 Laboratory Laboratory, [facility] [address] [place] [address] [facility] [address] [place] [address] Prostate cancer (HCC); Chronic kidney disease, stage 3a; Dyslipidemia, goal LDL below 70; Gout, unspecified cause, unspecified chronicity, unspecified site Allergies Active Allergy Reactions Severity Noted Date Comments Adhesive Tape Rash 05/21/2018 Allergic to adhesive only,not the " tape" documented as of this encounter (statuses as of 12/14/2022) Medications Medication Sig Dispensed Refills Start Date [...] Oral Tablet (Zyloprim) TAKE 1 TABLET DAILY. [id number] PRESCRIPTION 90 Tablet 1 11/28/2022 Active documented as of this encounter (statuses as of 12/14/2022) Active Problems Problem Noted Date Chronic kidney disease, stage 3a 021 Overview: Per CKD protocol Prostate cancer 05/21/2019 History of actinic keratoses 01/06/2019 Obesity, Class I, BMI 30.0-34.9 (see act ual BMI) 05/21/2018 documented as of this encounter (statuses as of 12/14/2022) Resolved Problems Problem Noted Date Resolved Date Prostate cancer 11/14/2018 05/21/2019 documented as of this encounter (statuses as of 12/14/2022) Immunizations Name Administration Dates Next Due COVID-19 mRNA, LNP-s, No Pre serve, 2-Dose Series ([employer]) 06/02/2020,05/12/2020 Covid-19 Mrna, Lnp-s, No Pre serve, Booster (Moderna) 07/19/2021,02/10/2021 Covid-19, Mrna, Lnp-s, Pf, B ivalent, 30 Mcg, IM, 12 yrs and above ([employer]uel ([email or web address])) 01/10/2022 Pneumococcal Conjugate Vacc, 13 Valent (Prevnar) [...] on file documented as of this encounter Plan of Treatment Upcoming Encounters Date Type Specialty Care Team Description 12/18/2022 Office Visit Family Medicine Mohan Haddad DO [address] [facility] [address] 01/10/2023 Telemedicine Urology Pepper Jarquin MD [address] [place] [phone] 02/26/2023 Office Visit Dermatology Christine Huddleston MD Pending Results Name Type Priority Associated Diagnoses Date /Time PSA Lab Routine Prostate cancer (HCC) 12/14/2022 9:03 AM EDT CBC WITH WBC DIFFERENTIAL Lab Routine Chronic kidney disease, stage 3a 12/14/2022 9:03 AM EDT COMPREHENSIVE METABOLIC PANEL Lab Routine Chronic kidney disease, stage 3a 12/14/2022 9:03 AM EDT LIPID PANEL WITH DIRECT LDL IF TG IS HIGH Lab Routine Dyslipidemia, goal LDL below 70 12/14/2022 9:03 AM EDT URIC ACID Lab Routine Gout, unspecified cause, unspecified chronicity, unspecified site 12/14/2022 9:03 AM EDT CBC Lab Routine Chronic kidney disease, stage 3a 12/14/2022 9:03 AM EDT DIFFERENTIAL, AUTOMATED Lab Routine Chronic kidney disease, stage 3a 12/14/2022 9:03 AM EDT Scheduled Procedures Name Priority Associated Diagnoses Date/Ti me COLONOSCOPY FLEXIBLE PROXIMAL DIAGNOSTIC Recall History of colon polyps Health Maintenance Due Date Last Done Comments Depression Screening, Annual for Pts 12 and Over 06/23/2021 06/23/2020 CKD PHOS USE SMARTSET 11613 12/27/2021 12/27/2020 CKD HGB USE SMARTSET 92356 10/03/202210/03, 10/03/2021, 06/27/2021, Additional history exists GFR [...] this encounter Visit Diagnoses Diagnosis Prostate cancer (HCC) Malignant neoplasm of prostate Chronic kidney disease, stage 3a Dyslipidemia, goal LDL below 70 Other and unspecified hyperlipidemia Gout, unspecified cause, unspecified chronicity, unspecified site documented in this encounter Care Teams Stone Decorator Relationship Specialty Start Date End Date Mohan Haddad DO [address] [place] [address] PCP - General Family Medicine 05/21/18 documented as of this encounter
--- OUTSIDE RECORDS SUMMARY | 2023-04-27 07:11 | External Medical Summary ---
Author Name Unknown Address Unknown Organization [id number]:LABORATORY [facility] - [address] [place] [address] Laboratory Report Ordering Provider Test Date Status TOBIAS CASTELLANOS 12/14/2022 09:03:41 Final Observation Date Value Abnormality Reference (Units ) Status Uric Acid 12/14/2022 09:03:41 5.8 3.4-7.0 (m g/dL) Final Performing Location LABORATORY C - [address] [place] [address]
--- OUTSIDE RECORDS SUMMARY | 2023-04-27 07:11 | External Medical Summary | Summary of Care ---
Author Name Unknown Organization [facility] Address [address] [place] [address] Phone [phone] Care Team Providers Care Metal Spray Operator Name Role Phone Mohan Haddad DO Primary Care Provider Reason for Visit * Reason Onset Date Comments Appointment 12/18/2022 Cardio Encounter Details Date Type Department Care Team Description 12/18/2022 Telephone Family Practice [facility] [address] [place] [address] Mohan Haddad DO [address] [place] [address] Appointment (Cardio ) Allergies Active Allergy Reactions Severity Noted Date [...] Oral Tablet (Zyloprim) TAKE 1 TABLET DAILY. [id number] PRESCRIPTION 90 Tablet 1 11/28/2022 Active documented [...] mRNA, LNP-s, No Pre serve, 2-Dose Series ([employer]) 06/02/2020,05/12/2020 COVID-19, mRNA, LNP-s, PF, B ooster, 100mcg/0.5mg (Moderna) 07/19/2021,02/10/2021 Covid-19, Mrna, Lnp-s, Pf, B ivalent, 30 Mcg, IM, 12 yrs and above ([employer]) 01/10/2022 Pneumococcal Conjugate Vacc, 13 Valent (Prevnar) [...] encounter Miscellaneous Notes * Telephone Encounter - Jahaira Haddad - [...] Description 01/10/2023 Telemedicine Urology Pepper Jarquin MD [address] [place] [address] 02/26/2023 Office Visit Dermatology Christine Huddleston MD 08/07/2023 Office Visit Family Medicine Mohan Haddad, DO [address] [place] [address] Scheduled Procedures Name Priority Associated Diagnoses Date/Ti me COLONOSCOPY FLEXIBLE PROXIMAL DIAGNOSTIC Recall History of colon polyps Health Maintenance Due Date Last Done Comments Depression Screening 06/23/2021 06/23/2020 CKD PHOS USE SMARTSET 34007 12/27/2021 12/27/2020 Influenza Vaccine (FLU shot) (#1) 2022 01/27/2022, 01/26/2022, 01/31/2021, Additional history exists Albumin/Creatinine Ratio 05/30/2023 023, 06/27/2021, 05/24/2020, Additional history exists GFR 06/14/2023 12/14/2022, 05/11, 01/04/2022, Additional history exists CKD HGB USE SMARTSET 85414 12/15/202312/14, 12/14/2022, 10/03/2021, Additional history exists COLONOSCOPY-EVERY 3 YRS AGES 18-100 05/01/2025 05/01/2022, 05/01/2022 DTaP,Tdap,and Td Vaccines (3 - Td or Tdap) 05/31/2032 05/31/2022, 01/17/2012, 01/06/2010 Zoster Vaccines Completed 10/10/2019, 06/2019, 04/16/2019, Additional history exists COVID-19 Vaccine [...] filedocumented as of this encounter Care Teams Metal Spray Operator Relationship Specialty Start Date End Date Mohan Haddad, [address] [place] [address] PCP - General Family Medicine 05/21/18 documented as of this encounter
--- OUTSIDE RECORDS SUMMARY | 2023-04-27 07:11 | External Medical Summary ---
Author Name Unknown Address Unknown Organization [id number]:LABORATORY [facility] [address] - [address] [place] [address] Laboratory Report Ordering Provider Test Date Status TOBIAS CASTELLANOS 12/14/2022 09:03:41 Final Observation Date Value Abnormality Reference (Units ) Status SYNC LEUKOCYTES IN BLOOD BY AUTOMATED COUNT 12/14/2022 09:03:41 7.22 4.00-10.80 (K/uL) Final Neutrophils/100 leukocytes in Blood by Manual count 12/14/2022 09:03:41 86.0 Above high normal 40.0-75.0 (%) Final Lymphocytes/100 leukocytes in Blood by Manual count 12/14/2022 09:03:41 9.0 Below low normal 18.0-42.0 (%) Final Monocytes/100 leukocytes in Blood by Manual count 12/14/2022 09:03:41 4.0 1.0-11.0 (%) Final Metamyelocytes/100 leukocytes in Blood by Manual count 12/14/2022 09:03:41 1.0 Above high normal <=0.0 (%) Final Neutrophils [#/volume] in Blood by Manual count 12/14/2022 09:03:41 6.21 1.80-7.70 (K/uL) Final Lymphocytes [#/volume] in Blood by Manual count 12/14/2022 09:03:41 0.65 Below low normal 1.00-4.80 (K/uL) Final Monocytes [#/volume] in Blood by Manual count 12/14/2022 09:03:41 0.29 0.00-1.10 (K/uL) Final Metamyelocytes [#/volume] in Blood by Manual count 12/14/2022 09:03:41 0.07 Above high normal <=0.00 (K/uL) Final Nucleated erythrocytes/100 leukocytes [Ratio] in Blood by Automated count 12/14/2022 09:03:41 1 Above high normal <=0 (/100 WBCs) Final Giant platelets [Presence] in Blood by Light microscopy 12/14/2022 09:03:41 Present Abnormal None Seen Final [facility]forming Location [facility] - [address] [place] [address]
--- OUTSIDE RECORDS SUMMARY | 2023-04-27 07:11 | External Medical Summary ---
Author Name Unknown Address Unknown Organization K0G:LABORATORY [facility] - [address] [place] [address] Laboratory Report Ordering Provider Test Date Status TOBIAS CASTELLANOS 12/14/2022 09:03:41 Final Observation Date Value Abnormality Reference (Units ) Status WBC, Total 12/14/2022 09:03:41 7.22 4.00-10.8 0 (K/uL) Final RBC 12/14/2022 09:03:41 4.98 4.50-5.25 (M/uL) Final Hemoglobin 12/14/2022 09:03:41 14.7 14.0-16.8 (g/dL) Final HCT 12/14/2022 09:03:41 45.4 40.0-48.4 (%) Final MCV 12/14/2022 09:03:41 91.2 82.0-99.5 (fL) Final MCH 12/14/2022 09:03:41 29.5 27.0-34.0 (pg) Final MCHC 12/14/2022 09:03:41 32.4 32.0-36.0 (g/dL) Final RDW 12/14/2022 09:03:41 16.0 11.5-15.5 (%) Final Platelets 12/14/2022 09:03:41 145 140-400 (K /uL) Final MPV 12/14/2022 09:03:41 13.0 6.6-11.1 ( fL) Final Performing Location LABORATORY [facility] [employer] [address] - [address] [place] [address]
--- OUTSIDE RECORDS SUMMARY | 2023-04-27 07:11 | External Medical Summary ---
Author Name Unknown Address Unknown Organization K0G:LABORATORY [facility] - [address] [place] [address] Laboratory Report Ordering Provider Test Date Status TOBIAS CASTELLANOS 12/14/2022 09:03:41 Final Observation Date Value Abnormality Reference (Units ) Status BUN 12/14/2022 09:03:41 22 Above high normal 6-20 (mg/dL) Final Creatinine 12/14/2022 09:03:41 1.5 Above high normal 0.6-1.2 (mg/dL) Final Glomerular filtration rate/1.73 sq M.predicted [Volume Rate/Area] in Serum, Plasma or Blood by Creatinine-based formula (CKD-EPI) 12/14/2022 09:03:41 47 Below low normal >=60 (mL/min) Final eGFR is calculated based on the CKD-EPI 2020 equation SODIUM 12/14/2022 09:03:41 139 135-146 (m mol/L) Final Potassium 12/14/2022 09:03:41 4.9 3.5-5.1 (m mol/L) Final Cl 12/14/2022 09:03:41 102 98-107 (mm ol/L) Final CO2 12/14/2022 09:03:41 25 22-32 (mmo l/L) Final Anion gap 12/14/2022 09:03:41 12 7-15 (mmol /L) Final Glucose 12/14/2022 09:03:41 119 70-120 (mg /dL) Final Albumin 12/14/2022 09:03:41 4.7 3.8-5.0 (g /dL) Final AST (Aspartate aminotransferase) 12/14/2022 09:03:41 21 10-50 (U/L) Fin al Alk Phos 12/14/2022 09:03:41 66 35-130 (U/ L) Final Bilirubin, Total 12/14/2022 09:03:41 1.5 Above high no rmal <=1.2 (mg/dL) Final Calcium 12/14/2022 09:03:41 9.4 8.4-10.2 ( mg/dL) Final Protein 12/14/2022 09:03:41 7.4 6.0-8.3 (g /dL) Final ALT (Alanine aminotransferase) 12/14/2022 09:03:41 18 10-50 (U/L) Adria canseco Performing Location LABORATORY [facility] [address] - [address] [facility] [address]
[2023-04-27] MEDS ORDERED: NITROGLYCERIN SL 0.4 MG/TAB TAB SL PRN (07:57)
[2023-04-27] MEDS ORDERED: ACETAMINOPHEN 325 MG TAB PO PRN (07:57)
[2023-04-27] MEDS ORDERED: POLYETHYLENE (MIRALAX) 17 GM PACK PO PRN (07:57)
--- NOTE | 2023-04-27 08:15 | History & Physical Report ---
Date of Service April 27, 2023 Assessment & Plan (1) Abnormal blood cell count: Plan: 78-year-old male with past med history significant for chronic kidney stage III, prostate cancer s/p radiation, hypertension, gout, PVCs comes because of left- sided chest pain and abdominal pain and found to have WBC of 55 K, hemoglobin 9.2 and platelets 54 K. Patient's states since 4 PM yesterday he noticed left upper abdominal pain and left lower rib cage pain he took 2 Advil's but the pain did not subsided. When he was sleeping with movement the pain was getting worse and when he decided to come to the hospital. The pain then progressed from the left upper abdomen to left shoulder. Denies any shortness of breath. Sometimes movement of the body makes the pain worse. Denies any fevers. No cough. No nausea or vomiting. No abdominal pain. Normal bowel and bladder movements. Denies any hematuria or blood in the stools or black stools. No headache. Has some runny nose. No sore throat. Vision is okay. Patient states he had COVID on . But currently states he has no COVID symptoms. Appetite is okay. No recent weight gain or weight loss. No night sweats. Patient states he has history of epistaxis for long time. About 1 week ago he had a episode of epistaxis and it took 7 hours to stop it. Last 2 weeks he is also having oral ulcers on and off. Currently had an oral ulcer on right side states started 2 days ago. Also last couple of weeks with minimal exertion getting fatigued. Abnormal blood cell count WBC 55 K Hemoglobin 9.2 Platelets 54 K Labs from December 2022 shows WC 7.2, hemoglobin 14.7, platelets 145 Complains of left chest pain abdominal pain Will get CT chest and CT abdomen Consult heme-onc for further recommendations Chest pain Has point tenderness left lower chest PVCs Initial troponin negative Patient stress echo test November 2021 was negative for inducible ischemia. Had bigeminy at rest but PVCs were suppressed on exertion. Will do serial enzymes and echo. Continue home beta-rianna. Received aspirin in the ER Patient states he is on high-dose aspirin since age 38 for prevention. If cardiac workup negative will hold aspirin because of thrombocytopenia and also patient recently had epistaxis If any concern will consult cardiology. Oral ulcer Patient states getting oral ulcers on and off for last 2 weeks At blackish lesion on the right inner cheek Consult GI JAN on CKD stage III Baseline creatinine 1.5 Presented with creatinine of 2.14 Holding lisinopril avoid nephrotoxic agents Gentle fluids Follow repeat labs Hypertension Holding lisinopril continue metoprolol succinate Will monitor Gout on allopurinol History of prostate cancer Diagnosed in July 2018 S/p radiation, finished in November 2018 PSA 0.12 December 2022 Follows with urology Left upper lip cutaneous lesion recently excision showed pigmented actinic keratosis DVT prophylaxis SCDs as patient has thrombocytopenia Disposition Telemetry Full code History of Present Illness Chief Complaint: Left-sided chest pain and abdominal pain Primary Care Provider: Mohan Haddad DO 78-year-old male with past med history significant for chronic kidney stage III, prostate cancer s/p radiation, hypertension, gout, PVCs comes because of left- sided chest pain and abdominal pain and found to have WBC of 55 K, hemoglobin 9.2 and platelets 54 K. Patient's states since 4 PM yesterday he noticed left upper abdominal pain and left lower rib cage pain he took 2 Advil's but the pain did not subsided. When he was sleeping with movement the pain was getting worse and when he decided to come to the hospital. The pain then progressed from the left upper abdomen to left shoulder. Denies any shortness of breath. Sometimes movement of the body makes the pain worse. Denies any fevers. No cough. No nausea or vomiting. No abdominal pain. Normal bowel and bladder movements. Denies any hematuria or blood in the stools or black stools. No headache. Has some runny nose. No sore throat. Vision is okay. Patient states he had COVID on . But currently states he has no COVID symptoms. Appetite is okay. No recent weight gain or weight loss. No night sweats. Patient states he has history of epistaxis for long time. About 1 week ago he had a episode of epistaxis and it took 7 hours to stop it. Last 2 weeks he is also having oral ulcers on and off. Currently had an oral ulcer on right side states started 2 days ago. Also last couple of weeks with minimal exertion getting fatigued. Past medical history. As mentioned above Past surgical history. Colonoscopy. Prostate biopsy. Removal of the right eyelid lesion. Family history. No family history on file. Social history. . Quit smoking 1970. Alcohol occasional. No drug use. Allergies Allergy/AdvReac Type Severity Reaction Status Date / Time No Known Allergies Allergy Verified 06/29/21 13:12 Home Medications Medication Instructions Recorded Confirmed Type allopurinol 300 mg tablet 300 mg PO DAILY 04/27/23 04/27/23 History aspirin 325 mg tablet 325 mg PO DAILY 04/27/23 04/27/23 History lisinopril 10 mg tablet 10 mg PO DAILY 04/27/23 04/27/23 History loratadine 10 mg tablet 10 mg PO DAILY 04/27/23 04/27/23 History metoprolol succinate 25 mg 12.5 mg PO DAILY 04/27/23 04/27/23 History tablet,extended release 24 hr Past Med/Surg History Medical History Sebaceous cyst Removed from chest wall Allergic rhinitis Gout 1 episode - now resolved Prostate cancer BPH (benign prostatic hyperplasia) Hypertension Surgical History H/O left inguinal hernia repair Hx of hemorrhoidectomy Family History Mother , 76yo Hypertension AML (acute myeloid leukemia) Father , 76yo Prostate cancer Diabetes Myocardial infarction Hypertension Sister Wilms' tumor Had a kidney removed Breast cancer Arthritis Hypertension Son , 46yo ALL (acute lymphoblastic leukemia) Meningioma Initially benign and later became malignant Daughter No problems noted. Social History Smoking Status: Former smoker Age Started Using Tobacco: 16; Cigarettes Per Day: Less than 1 PPD when smoking;smoked his pipe more;; Hx Alcohol Use: Yes (1 glass wine/week;Scotch 1/week;Beer in golf seasoning;) Alcohol type: beer, wine and hard liquor Hx Substance Use: No Preferred Language: Burkinan Communication Ability: Effective Visual Impairment: No Limitations Hearing Ability: Normal Civil Engineering Intern Required: No Beliefs That Will Affect Care: None marital status: Current Living Situation: Spouse Current Living Situation Comment: [facility] current occupational status: retired 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 ENT- blackish lesion seen on the inner part of right cheek. Neck- supple, no JVD. Lungs- clear to auscultation no wheezing or crackles. Heart- regular rhythm; no murmur, no gallop. Abdomen- normal bowel sounds, soft, nontender, no distension. Extremities- no pretibial edema, no erythema seen. Neuro- alert, oriented x 3; PERRL, no facial palsy; no dysarthria; moves extremities. Skin- warm & dry Results & Data Results & Data Vital Signs (Past 12 Hours) Vital Signs Temp Pulse Pulse Resp BP BP Pulse Ox 04/27/23 06:23 64 24 144/87 H 96 04/27/23 04:54 60 16 129/67 93 04/27/23 04:13 96 04/27/23 03:58 70 04/27/23 03:55 36.4 C L 67 25 H 172/88 H 98 O2 Del Method 04/27/23 06:23 Room Air 04/27/23 04:54 Room Air 04/27/23 04:13 Room Air 04/27/23 03:58 04/27/23 03:55 Room Air Diagnostic Findings Laboratory Results WBC 55.26 K/ul (4.8-10.8) H* 04/27/23 04:06 RBC 3.36 M/uL (4.70-6.10) L 04/27/23 04:06 Hgb 9.2 g/dl (14.0-18.0) L 04/27/23 04:06 Hct 31.4 % (42.0-52.0) L 04/27/23 04:06 MCV 93.5 fL (80.0-100.0) 04/27/23 04:06 MCH 27.4 pg (25.0-34.0) 04/27/23 04:06 MCHC 29.3 g/dL (32.0-36.0) L 04/27/23 04:06 RDW Std Deviation 62.7 fL (36.4-46.3) H 04/27/23 04:06 RDW Coeff of Lilliam 18.9 % (11.5-14.5) H 04/27/23 04:06 Plt Count 54 K/uL (130-400) L 04/27/23 04:06 Absolute Nucleated RBC 2.90 K/uL (0.00-0.12) H 04/27/23 04:06 Nucleated RBC % (auto) 5.2 % 04/27/23 04:06 Neutrophils % (Manual) 61 % 04/27/23 04:06 Lymphocytes % (Manual) 7 % 04/27/23 04:06 Monocytes % (Manual) 7 % 04/27/23 04:06 Metamyelocytes % (Man) 10 % 04/27/23 04:06 Myelocytes % (Man) 9 % 04/27/23 04:06 Promyelocytes % (Man) 1 % 04/27/23 04:06 Blast Cells % (Manual) 5 % 04/27/23 04:06 Neutrophils # (Manual) 33.71 K/uL (1.40-6.50) H 04/27/23 04:06 Total Absolute Neuts 33.71 K/uL (1.4-6.5) H 04/27/23 04:06 Lymphocytes # (Manual) 3.87 K/uL (1.2-3.4) H 04/27/23 04:06 Total Abs Lymphocytes 3.87 K/uL (1.2-3.4) H 04/27/23 04:06 Monocytes # (Manual) 3.87 K/uL (0.11-0.59) H 04/27/23 04:06 Metamyelocytes # (Man) 5.53 K/uL (0-0) H 04/27/23 04:06 Myelocytes # (Manual) 4.97 K/uL (0-0) H 04/27/23 04:06 Promyelocytes # (Man) 0.55 K/uL (0-0) H 04/27/23 04:06 Blast Cells # (Man) 2.76 K/uL (0-0) H 04/27/23 04:06 Hypogranular Neuts 1+ 04/27/23 04:06 Dohle Bodies 1+ 04/27/23 04:06 Polychromasia 1+ 04/27/23 04:06 Stomatocytes 1+ 04/27/23 04:06 D-Dimer 2060 ug/L FEU (0-500) H* 04/27/23 04:06 Sodium 134 mmol/L (136-145) L 04/27/23 04:06 Potassium 4.2 mmol/L (3.5-5.1) 04/27/23 04:06 Chloride 104 mmol/L (98-107) 04/27/23 04:06 Carbon Dioxide 22 mmol/L (21-32) 04/27/23 04:06 Anion Gap 8 (3-11) 04/27/23 04:06 BUN 36 mg/dl (6-23) H 04/27/23 04:06 Creatinine 2.14 mg/dl (0.6-1.4) H 04/27/23 04:06 Est Cr Clr Drug Dosing 37.6 ml/min 04/27/23 04:06 Est GFR ( Amer) 32.7 ml/min 04/27/23 04:06 Est GFR (Non-Af Amer) 28.2 ml/min 04/27/23 04:06 BUN/Creatinine Ratio 16.8 (10-20) 04/27/23 04:06 Glucose 119 mg/dl (70-99(Fasting)) H 04/27/23 04:06 Calcium 8.4 mg/dl (8.6-10.3) L 04/27/23 04:06 Total Bilirubin 1.3 mg/dl (0.2-1.0) H 04/27/23 04:06 AST 35 U/L (13-39) 04/27/23 04:06 ALT 11 U/L (7-52) 04/27/23 04:06 Alkaline Phosphatase 78 U/L (34-104) 04/27/23 04:06 Troponin I High Sens 11.7 pg/ml (0-20) 04/27/23 04:06 Total Protein 7.3 gm/dl (6.0-8.3) 04/27/23 04:06 Albumin 4.1 gm/dl (3.4-5.0) 04/27/23 04:06 Globulin 3.2 gm/dl (2.5-4.0) 04/27/23 04:06 Albumin/Globulin Ratio 1.3 (0.9-2) 04/27/23 04:06 Lipase 27 U/L (11-82) 04/27/23 04:06 SARS-CoV-2 (PCR) POSITIVE (Negative) A* 04/27/23 04:21 Influenza Type A (PCR) Negative (Neg) 04/27/23 04:21 Influenza Type B (PCR) Negative (Neg) 04/27/23 04:21 RSV (RT-PCR) Negative (Neg) 04/27/23 04:21 Impressions Chest X-Ray 04/27/23 04:13 SINGLE VIEW CHEST CLINICAL HISTORY: Atypical chest pain. FINDINGS: An AP, portable, upright chest radiograph is obtained. No prior studies are available for comparison at the time of dictation. The heart is enlarged. The pulmonary vasculature is noncongested. Nonspecific interstitial thickening is likely chronic. There is bibasilar scarring/atelectasis. The lungs and pleural spaces are otherwise clear. No pneumothorax is seen. The skeletal structures are osteopenic. The bony thorax is grossly intact. Arthritic change is noted in the left shoulder. IMPRESSION: Cardiomegaly with no acute cardiopulmonary abnormality identified ACT 112: Negative or not required by law. Electronically signed by: Ash Coe M.D. 04/27/2023 7:10 AM Code Status & VTE Plan Code Status ECG. Undetermined rhythm at rate of 81.. Nonspecific ST abnormality. VTE Prophylaxis Plan VTE Prophylaxis will be ordered: Yes
[2023-04-27] MEDS: SODIUM CHLORIDE 0.9% 1,000 ML IV SCH ×2 (08:42→21:26)
[2023-04-27] MEDS: allopurinoL 300 MG TAB PO SCH (08:43)
[2023-04-27] MEDS: LORATADINE 10 MG TAB PO SCH (08:43)
[2023-04-27] MEDS ORDERED: METOPROLOL SUCC 25MG EXT REL TAB PO SCH ×2 (09:00→21:00)
[2023-04-27] MEDS ORDERED: Nursing to Pharmacy Communication SCH (09:15)
[2023-04-27] MEDS ORDERED: fentaNYL citrate PF 100 MCG/2 ML VIAL ONE (09:51)
[2023-04-27] MEDS ORDERED: ACETAMINOPHEN 1000 MG/100 ML IV IV ONE (09:51)
--- NOTE | 2023-04-27 10:34 | Communication Note ---
Date of Service: April 27, 2023 Assumed care of Mr Burkett this am. Stable upon exam. 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 Trinh by Matthew Text: question of biopsy necessity? Will follow up
--- NOTE | 2023-04-27 11:02 | CT Scan Report ---
CT chest diagnostic wo con CT DOSE: 2560.13 mGy.cm HISTORY: left sided chest pain. hx of prostrate cancer TECHNIQUE: Multiaxial CT images of the chest were performed without contrast. A dose lowering techni que was utilized adhering to the principles of ALARA. COMPARISON: None. FINDINGS: There is mild anterior wedging at T11 consistent with a chronic compression deformity. No a cute fractures identified within the chest. No suspicious lytic are blastic osseous lesions. The abdo raphael structures will be reported on the same day abdomen and pelvis CT. The spleen appears enlarged. There is a punctate gallstone noted. There are few mildly enlarged bilateral anterior diaphragmatic lymph nodes. Dominant lymph node on the left measures 15 x 10 mm on image 217. The thyroid gland is u nremarkable. There are multiple mildly enlarged subpectoral/axillary, mediastinal, hilar, and distal para-aortic lymph nodes. These measure up to 11 mm in short axis diameter. Normal esophagus. Mild chad cified plaque within the thoracic aorta. There is mild aneurysmal dilatation of the ascending thoraci c aorta measuring up to 4.2 cm in diameter. Moderate to severe coronary artery calcifications are not ed. The heart is borderline enlarged. No pleural or pericardial effusions. No pneumothorax. The centr al airways are patent. Mild basilar predominant interstitial thickening. This is likely chronic. A fe w bibasilar linear densities favor subsegmental atelectasis are scarring. A few small subpleural dens ities within the right lung apex favors scarring. The punctate calcified granuloma within the right u pper lobe. No focal lung consolidations to suggest a pneumonia. No evidence for pulmonary edema. No s uspicious pulmonary nodules. IMPRESSION: 1. Splenomegaly with multiple mildly enlarged lymph nodes within the chest. A low-grade lymphoprolife rative disorder would be the diagnosis of exclusion. 2. Mild interstitial thickening is likely chronic. 3. No focal lung consolidations to suggest pneumonia. 4. Mild aneurysmal dilatation of the ascending thoracic aorta measuring up to 4.2 cm in diameter. 5. Additional findings as described above. ACT 112: Negative or not required by law. Electronically signed by: Dean Weber M.D. 04/27/2023 11:01 AM
--- NOTE | 2023-04-27 11:09 | CT Scan Report ---
CT SCAN OF THE ABDOMEN AND PELVIS WITHOUT IV CONTRAST CLINICAL HISTORY: Left-sided abdominal pain. History of prostate cancer. COMPARISON STUDY: No priors. TECHNIQUE: CT scan of the abdomen and pelvis is performed from the lung bases to the proximal femora. Images are reviewed in the axial, sagittal, and coronal planes. IV contrast was not administered for this examination. A dose lowering technique was utilized adhering to the principles of ALARA. FINDINGS: Lung bases: The heart is enlarged and without pericardial effusion. There are coronary artery calcifi cations. There is bibasilar scarring/atelectasis. No airspace consolidation or pleural effusion is id entified. There is a small hiatal hernia. Liver: The unenhanced liver is enlarged, measuring 20.3 cm in length. The liver is otherwise normal i n contour and attenuation. There is no intrahepatic biliary ductal dilatation. Gallbladder: There are small calcified gallstones with no CT evidence of acute cholecystitis. Spleen: The spleen is enlarged, measuring up to 21 cm in length. There are scattered calcified spleni c granulomas. Pancreas: The unenhanced pancreas is grossly unremarkable. Adrenal glands: Unremarkable. Kidneys: The unenhanced kidneys demonstrate cortical atrophy and are without hydronephrosis. No renal calculi are identified and no ureteral stone is seen. There is no evidence of contour deforming leander l mass lesion. Abdominal vasculature: The abdominal aorta is normal in course and caliber noting mild atheroscleroti c calcification. Bowel: There are scattered colonic diverticula without CT evidence of acute diverticulitis. No bowel obstruction is identified. Mild fecal retention is noted throughout the colon. The appendix is well- visualized and normal. Peritoneum: There is trace perisplenic ascites. No intraperitoneal free air is seen. Lymphadenopathy: There are numerous mildly enlarged retroperitoneal and iliac chain lymph nodes. An a ortocaval node on image #164 measures 2.6 x 1.7 cm. A left periaortic node on image #202 measures 2.4 x 1.5 cm. A right iliac chain node on image #257 measures 2.2 x 1.5 cm, and a right external iliac c rosario node on image #328 measures 3.1 x 1.8 cm. No inguinal lymphadenopathy is seen. There are promine nt upper abdominal and mesenteric nodes. Nodes in the fatimah hepatis measure up to 2.9 x 1.7 cm. A rig ht lower quadrant mesenteric node on image #209 measures up to 1.5 cm in length. Mildly enlarged card iophrenic nodes are seen bilaterally. A tari aggregate on the left on image #70 measures 2.2 x 1.5 c m. Pelvic viscera: The prostate gland is mildly enlarged and heterogeneous, and contains metallic implan ts. The bladder wall is thickened/trabeculated indicating chronic outlet obstruction. There is a fat- containing right groin hernia. There is evidence of previous left inguinal herniorrhaphy. Skeletal structures: The skeletal structures are osteopenic. Mild lumbosacral spondylosis is observed . No lytic or blastic lesions are seen. IMPRESSION: 1. No acute infectious or inflammatory findings are identified in the abdomen or pelvis. 2. Metallic implants are noted in the prostate gland. 3. There are numerous enlarged retroperitoneal and iliac chain lymph nodes, as well as mildly enlarge d cardiophrenic, mesenteric, and upper abdominal nodes. There is also marked splenomegaly as well as hepatomegaly. These findings are more suggestive of lymphoma than metastatic prostate cancer. Correla te with the clinical findings and oncological history. 4. Cardiomegaly. 5. Trace perisplenic ascites. 6. Cholelithiasis. 7. Additional findings as above. ACT 112: Positive. There are findings on this exam that require communication between the performing entity and the patient following Patient Test Result Information Act ([place] Act 112) guidelines. Electronically signed by: Ash Coe M.D. 04/27/2023 11:07 AM
--- NOTE | 2023-04-27 11:19 | CT Scan Report ---
CT GUIDED BONE MARROW BIOPSY CLINICAL HISTORY: CMML PROCEDURE: Procedure and risks were explained. Informed consent was obtained. A final timeout was com pleted. The patient was placed prone on the CT exam table. The left gluteal region was prepped and dr aped in sterile fashion. 1% buffered lidocaine was utilized for skin anesthesia. The patient received 1 g Tylenol IV. Utilizing CT guidance, an 11-gauge bone biopsy needle was advanced into the left iliac bone. Multiple aspirates and one bone core was obtained and given to the lab. The needle was removed and Band-Aid a pplied. The patient tolerated the procedure well. Vital signs will be monitored postprocedure. IMPRESSION: Bone marrow biopsy as above. Performed, dictated, and signed by Jaswant Cheema PA-C; to be co-signed by Dr. Dean Weber. Electronically signed by: Dean Weber M.D. 04/27/2023 11:28 AM
--- NOTE | 2023-04-27 11:40 | Oncology Consultation ---
Date of Consultation April 27, 2023 Assessment & Plan (1) Anemia: (2) Thrombocytopenia: (3) Elevated WBC count: (4) Prostate cancer: Plan -Labs/peripheral smear review suggestive of CMML also has splenomegaly. However, imaging shows lymphadenopathy which is not typically a feature of CMML and more consistent with lymphoma. Await bone marrow biopsy results. -Has anemia and thrombocytopenia likely due to malignancy but recommend checking B12, folate and iron studies to rule out nutritional component -He can be discharged home when clinically stable to follow up with hematology outpatient to review bone marrow results History of Present Illness Reason for Consultation: Leukocytosis Attending Physician: Deana Cao MD History of Present Illness This is a brief consult and patient was not seen in person. 78 year old gentleman with remote history of prostate cancer admitted for abdominal pain and found to have leukocytosis, anemia and thrombocytopenia. Peripheral smear review concerning for CMML. CT A/P revealed hepatosplenomegaly with numerous enlarged retroperitoneal and iliac chain lymph nodes. He underwent bone marrow biopsy with aspiration this morning. Allergies Allergy/AdvReac Type Severity Reaction Status Date / Time No Known Allergies Allergy Verified 04/27/23 09:34 Home Medications Medication Instructions Recorded Confirmed Type allopurinol 300 mg tablet 300 mg PO DAILY 04/27/23 04/27/23 History aspirin 325 mg tablet 325 mg PO DAILY 04/27/23 04/27/23 History lisinopril 10 mg tablet 10 mg PO DAILY 04/27/23 04/27/23 History loratadine 10 mg tablet 10 mg PO DAILY 04/27/23 04/27/23 History metoprolol succinate 25 mg 12.5 mg PO DAILY 04/27/23 04/27/23 History tablet,extended release 24 hr multivitamin with minerals-folic 1 tab PO DAILY 04/27/23 04/27/23 History acid 80 mcg chewable tablet (Centrum Adult 50 Plus) Patient History Medical History Sebaceous cyst Removed from chest wall Allergic rhinitis Gout 1 episode - now resolved Prostate cancer BPH (benign prostatic hyperplasia) Hypertension Surgical History H/O left inguinal hernia repair Hx of hemorrhoidectomy Family History Mother , 76yo Hypertension AML (acute myeloid leukemia) Father , 76yo Prostate cancer Diabetes Myocardial infarction Hypertension Sister Wilms' tumor Had a kidney removed Breast cancer Arthritis Hypertension Son , 46yo ALL (acute lymphoblastic leukemia) Meningioma Initially benign and later became malignant Daughter No problems noted. Social History Smoking Status: Former smoker Age Started Using Tobacco: 16; Cigarettes Per Day: Less than 1 PPD when smoking;smoked his pipe more;; Second Hand Exposure: No; Do You Dip or Chew Tobacco: No; Tobacco Cessation Education Requested by Patient: No Hx Alcohol Use: Yes (1 glass wine/week;Scotch 1/week;Beer in golf seasoning;) Alcohol type: wine Hx Substance Use: No Preferred Language: Cymraes Communication Ability: Effective Visual Impairment: No Limitations Hearing Ability: Normal Sales Consultant Residential Manager Required: No Beliefs That Will Affect Care: None marital status: Current Living Situation: Spouse Current Living Situation Comment: [facility] current occupational status: retired 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[employer];Professor; Other Information That Helps Us Care for You: No Feels Safe at Home: Yes Safety Concerns: Feels Safe At This Time Diet: other caffeine: No Assistive Devices: None Results & Data Vital Signs (Past 12 Hours) Vital Signs Temp Pulse Pulse Resp BP BP Pulse Ox 04/27/23 11:00 64 28 H 146/74 H 92 04/27/23 10:45 66 26 H 150/76 H 94 04/27/23 10:30 74 23 166/87 H 96 04/27/23 09:22 36.9 C 71 24 164/84 H 98 04/27/23 09:00 62 30 H 158/80 H 98 04/27/23 08:43 68 22 164/84 H 98 04/27/23 08:00 67 21 95 04/27/23 07:57 04/27/23 07:00 58 L 26 H 96 04/27/23 06:23 64 24 144/87 H 96 04/27/23 04:54 60 16 129/67 93 04/27/23 04:13 96 04/27/23 03:58 70 04/27/23 03:55 36.4 C L 67 25 H 172/88 H 98 Pulse Ox O2 Del Method O2 Del Method 04/27/23 11:00 Room Air 04/27/23 10:45 Room Air 04/27/23 10:30 Room Air 04/27/23 09:22 Room Air 04/27/23 09:00 04/27/23 08:43 04/27/23 08:00 Room Air 04/27/23 07:57 93 Room Air 04/27/23 07:00 Room Air 04/27/23 06:23 Room Air 04/27/23 04:54 Room Air 04/27/23 04:13 Room Air 04/27/23 03:58 04/27/23 03:55 Room Air (1) Anemia Anemia type: unspecified type Qualified Code(s): D64.9 - Anemia, unspecified (3) Elevated WBC count Leukocytosis type: unspecified Qualified Code(s): D72.829 - Elevated white blood cell count, unspecified
[2023-04-27 13:39] LABS: Ferritin 246.6 ng/ml (8-388)
--- NOTE | 2023-04-27 14:06 | Communication Note ---
Date of Service: April 27, 2023 GI was consulted on Mr Burkett regarding a mouth ulcer. Pt does not have a hx of IBD. This does not fall under the umbrella of gastroenterology. Discussed w primary hospitalist. Please consult ENT.
--- NOTE | 2023-04-28 06:20 | Electrocardiogram Report ---
Test Reason : Blood Pressure : / mmHG Vent. Rate : 081 BPM Atrial Rate : 081 BPM P-R Int : 000 ms QRS Dur : 106 ms QT Int : 406 ms P-R-T Axes : 094 010 -52 degrees QTc Int : 471 ms Sinus rhythm with frequent Premature ventricular complexes Nonspecific ST abnormality Abnormal ECG No previous ECGs available Confirmed by Abner Goins ([id number]) on 04/28/2023 6:20:25 AM Referred By: REFERRED SELF Confirmed By:Abner Goins
--- NOTE | 2023-04-28 07:14 | Electrocardiogram Report ---
Test Reason : Blood Pressure : / mmHG Vent. Rate : 066 BPM Atrial Rate : 066 BPM P-R Int : 194 ms QRS Dur : 104 ms QT Int : 454 ms P-R-T Axes : 066 011 026 degrees QTc Int : 475 ms Normal sinus rhythm Normal ECG When compared with ECG of 27-APR-2023 03:56, Premature ventricular complexes are no longer Present ST no longer depressed in Inferior leads Confirmed by Domingo Segal ([id number]) on 04/28/2023 7:14:18 AM Referred By: REFERRED SELF Confirmed By:Hamlet Segal
[2023-04-28 08:08] LABS: Hematocrit (blood only) 28.2 % (42.0-52.0); Hemoglobin 8.4 g/dl (14.0-18.0); Mean Corpuscular Hemoglobin 27.3 pg (25.0-34.0); Mean Corpuscular Hgb Conc 29.8 g/dL (32.0-36.0); Mean Corpuscular Volume 91.6 fL (80.0-100.0); Mean Platelet Volume 12.4 fL (9.4-12.4); Nucleated RBC # (auto) 1.55 K/uL (0.00-0.12); Nucleated RBC % (auto) 4.3 %; Platelet Count 45 K/uL (130-400); RDW Coefficient of Variation 18.7 % (11.5-14.5); RDW Standard Deviation 61.3 fL (36.4-46.3); Red Blood Count 3.08 M/uL (4.70-6.10); White Blood Count 35.68 K/ul (4.8-10.8)
[2023-04-28 08:17] LABS: Albumin Globulin Ratio 1.5 (0.9-2); Albumin Level 3.8 gm/dl (3.4-5.0); BUN Creatinine Ratio 18.1 (10-20); Bilirubin,Total 1.4 mg/dl (0.2-1.0); Calcium 8.3 mg/dl (8.6-10.3); Creatinine Clr Calc Pharmacy 42.8 ml/min; Est GFR (African American) 38.2 ml/min; Globulin 2.6 gm/dl (2.5-4.0); Magnesium 2.3 mg/dl (1.7-2.4); Phosphorus 4.2 mg/dl (2.5-4.9); Potassium 4.7 mmol/L (3.5-5.1); Total Protein 6.4 gm/dl (6.0-8.3)
[2023-04-28 08:31] LABS: ALC (manual) 3.92 K/uL (1.2-3.4); ANC (manual) 17.84 K/uL (1.4-6.5); Blast # (manual) 1.07 K/uL (0-0); Blast Cells % (manual) 3 %; Dohle Bodies 1+; Eosinophils # (manual) 0.36 K/uL (0-0.50); Eosinophils % (manual) 1 %; Lymphocytes # (manual) 3.92 K/uL (1.2-3.4); Lymphocytes % (manual) 11 %; Metamyelocytes # (manual) 3.21 K/uL (0-0); Metamyelocytes % (manual) 9 %; Monocytes % (manual) 7 %; Myelocytes # (manual) 6.78 K/uL (0-0); Myelocytes % (manual) 19 %; Neutrophils # (manual) 17.84 K/uL (1.40-6.50); Neutrophils % (manual) 50 %; Polychromasia 1+; Tear Drop Cells 2+
[2023-04-28] MEDS: allopurinoL 300 MG TAB PO SCH (11:08)
[2023-04-28] MEDS: LORATADINE 10 MG TAB PO SCH (11:08)
[2023-04-28 11:45] VITALS: BP 126/72; PULSE 60; RESP 19; TEMP 97.7; O2SAT 97
[2023-04-28] MEDS: SODIUM CHLORIDE 0.9% 1,000 ML IV SCH (11:46)
--- NOTE | 2023-04-28 13:43 | Communication Note ---
Date of Service: April 28, 2023 78-year-old male with anemia thrombocytopenia and history of prostate cancer was admitted with vague chest and abdominal pain and noted to have significant leukocytosis and anemia with thrombocytopenia. He was evaluated by the appropriate specialist specially vessel operator and the attending found that the patient can be safely discharged home. By CMS guidelines, a determination that the admission or continued stay is not medically necessary has been made by a member of the UR committee and a physician for this hospital stay, therefore a Code 44 will be completed and the Inpatient admission will be changed to outpatient. Dr Florence Reddy Member UR Committee
--- NOTE | 2023-04-28 18:33 | Discharge Summary ---
Discharge Summary Date of Service April 28, 2023 Notes For Next Care Provider Patient with peripheral smear c/w CMML, however, imaging with bulky lymphadenopathy c/w lymphoma Heme/Onc evaluated--given stable anemia panel (iron, b12, folate), discharge to ensure prompt Heme/Onc follow up facilitated as blood dyscrasia not likely to correct while inpatient Patient's questions answered. Patient advised on symptoms/signs that should prompt return to ED --prolonged epistaxis, fevers, intractable pain etc ENT contacted--Dr Trinh to arrange follow up for nose bleeding/lesion in mouth Medication Changes From Visit Hold Lisinopril until OP follow ip and BMP--pressures in 120-140s during admission, can resume if renal function remains stable at baseline iso new malignancy Hold ASA 325mg, concern for leukemia/lymphoma, thrombocytopenia and recent epistaxis Admission HPI Per Admitting Provider 78-year-old male with past med history significant for chronic kidney stage III, prostate cancer s/p radiation, hypertension, gout, PVCs comes because of left- sided chest pain and abdominal pain and found to have WBC of 55 K, hemoglobin 9.2 and platelets 54 K. Patient's states since 4 PM yesterday he noticed left upper abdominal pain and left lower rib cage pain he took 2 Advil's but the pain did not subsided. When he was sleeping with movement the pain was getting worse and when he decided to come to the hospital. The pain then progressed from the left upper abdomen to left shoulder. Denies any shortness of breath. Sometimes movement of the body makes the pain worse. Denies any fevers. No cough. No nausea or vomiting. No abdominal pain. Normal bowel and bladder movements. Denies any hematuria or blood in the stools or black stools. No headache. Has some runny nose. No sore throat. Vision is okay. Patient states he had COVID on Day. But currently states he has no COVID symptoms. Appetite is okay. No recent weight gain or weight loss. No night sweats. Patient states he has history of epistaxis for long time. About 1 week ago he had a episode of epistaxis and it took 7 hours to stop it. Last 2 weeks he is also having oral ulcers on and off. Currently had an oral ulcer on right side states started 2 days ago. Also last couple of weeks with minimal exertion getting fatigued. Past medical history. As mentioned above Past surgical history. Colonoscopy. Prostate biopsy. Removal of the right eyelid lesion. Family history. No family history on file. Social history. . Quit smoking 1971. Alcohol occasional. No drug use. Admission Exam Per Admitting Provider General- Not in distress Head- atraumatic Eyes- PERRL. ENT- blackish lesion seen on the inner part of right cheek. Neck- supple, no JVD. Lungs- clear to auscultation no wheezing or crackles. Heart- regular rhythm; no murmur, no gallop. Abdomen- normal bowel sounds, soft, nontender, no distension. Extremities- no pretibial edema, no erythema seen. Neuro- alert, oriented x 3; PERRL, no facial palsy; no dysarthria; moves extremities. Skin- warm & dry Principal Dx & Hospital Course #1 = Principal Diagnosis (1) Abnormal blood cell count: Mr. Burkett is an 78-year-old male with past med history significant for chronic kidney stage III, prostate cancer s/p radiation, hypertension, gout, PVCs comes because of left-sided chest pain and abdominal pain and found to have WBC of 55 K, hemoglobin 9.2 and platelets 54 K. Patient admitted on 04/27 due to concern of hematologic malignancy. Peripheral smear returned with concerns for CMML. CT AB/P obtained and revealed bulky lymphadenopathy retroperitoneal, inguinal, and mediastinal. No palpable lymphnodes. Given smear results, prompt BM biopsy was obtained. Heme/Onc consulted with recommendations for OP follow up promptly once bone marrow results. Additionally, labs with JAN which resolved with IV hydration. Patient's pain subsided and patient eager for discharge to establish with Heme/Onc. No concerns for blast crisis. Patient notes that he has strong family history of leukemia (son and mother). He is eager to see what potential options are available for him. He understands the risks of discharge, but given admission would be trending labs, he is comfortable going home with close follow up to be arranged. On day of discharge, patient was ambulating without difficulty, endorsing strong appetite and denying all pain--noting that left rib pain subsided and that lesion in mouth has nearly (remarkably) resolved . #Blood dyscrasia, c/f leukemia/lymphoma #Leukocytosis #Bicyotpenia, rbc/platelets #Diffuse LAD Abnormal blood cell count, on admission WBC 55 K, Hemoglobin 9.2 , Platelets 54 K Labs from December 2022 shows WC 7.2, hemoglobin 14.7, platelets 145 Hepatosplenomegaly c/w CMML, however LAD more suggestive of lymphoma -Bone marrow biopsy 04/27 pending -Plan for close follow up with op cbc w/ diff and Heme/Onc appointment -Hold ASA iso thrombocytopenia #Non-cardiac chest pain -locality of pain c/w splenomegaly on imaging -Resolved, management will be contingent on treatment per Heme/Onc #Right buccal Oral ulcer Patient states getting oral ulcers on and off for last 2 weeks, non-tender, black ulceration ENT contacted on [place] Text: OP referral for biopsy Nearly resolved on admission (sydnie sized lesion on 04/27 to nearly resolved on 04/28) #COVID -Incidental positive, denies symptoms #JAN on CKD stage III *improved Baseline creatinine 1.5 Presented with creatinine of 2.14 Holding lisinopril, follow up OP ;labs, resume as able OP PCP follow up #Hypertension Holding lisinopril continue metoprolol succinate Gout on allopurinol History of prostate cancer Diagnosed in July 2018 S/p radiation, finished in November 2018 PSA 0.12 December 2022 Follows with urology On discharge, patient is alert oriented, pain free, eating well, and denies any symptoms. Discharge Exam Constitutional WD/WN, vitals as above Respiratory normal respiratory effort, lungs clear to auscultation Cardiovascular RRR, no murmur, no edema Gastrointestinal (Abdomen) palpable spleen, protuberant but soft abdomen nontender Updated Medication List Medication Instructions Recorded Confirmed Type allopurinol 300 mg tablet 300 mg PO DAILY 04/27/23 04/27/23 History aspirin 325 mg tablet 325 mg PO DAILY 04/27/23 04/27/23 History lisinopril 10 mg tablet 10 mg PO DAILY 04/27/23 04/27/23 History loratadine 10 mg tablet 10 mg PO DAILY 04/27/23 04/27/23 History metoprolol succinate 25 mg 12.5 mg PO DAILY 04/27/23 04/27/23 History tablet,extended release 24 hr multivitamin with minerals-folic 1 tab PO DAILY 04/27/23 04/27/23 History acid 80 mcg chewable tablet (Centrum Adult 50 Plus) Hospital Stay Data Consultations 04/27/23 08:00 Consult Gastroenterology Routine Consult Hematology Routine Diagnostic Imagining Performed 04/27/23 07:57 CT Abd and Pelvis [CT abd pelvis wo con] Urgent CT chest diagnostic wo con Urgent 04/27/23 08:50 IR bone marrow bx & asp Routine Pending Results Patient Have Any Pending Studies at Discharge: Yes (bone marrow biopsy ) Discharge Instructions Given to Patient (Per Discharging Provider) You were admitted due to concerns of abdominal pain. You were noted to have multiple swollen lymphnodes (lymphadenopathy), swollen spleen/liver (hepatosplenomegaly), as well as abnormal blood profile concerning for leukemia/lymphoma. A bone marrow biopsy was obtained on 04/27 and is pending. The next steps to manage the above are contingent on close follow up with Hematology/Oncology. A referral was placed and prompt appointment will be coordinated. Your kidney function was elevated, therefore your lisinopril was held. Please follow up with Dr. Haddad regarding your kidney function. If it is at your baseline, resuming will be acceptable. Your platelets are low (thrombocytopenia) and you should hold your Aspirin 325 mg until told to resume or otherwise by the Design Inserter/Oncologist ENT is a must for the lesions in your mouth as well as to discuss the nose bleeds. 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 Your electro tech, Dr Mcmahon, will follow this appropriately. Total Time Total Time Spent Total Time Spent (In Minutes): 65
== END 2023-04-28 17:47 | disposition home or self-care (01) ==
LOC: ED 03:50 → SUATTDRO 06:26 → INTOOBSV 06:26 → EDINP 06:26 → 2S 07:56

== ENCOUNTER 2023-12-03 12:45 | Inpatient (IN) ==
[2023-12-03] MEDS ORDERED: SODIUM CHLORIDE 0.9% 250 ML IV PRN ×5 (12:53→20:51)
--- NOTE | 2023-12-03 13:14 | Emergency Department Note ---
Impression & Plan Symptomatic anemia, Thrombocytopenia, Pancytopenia ED Provider Note NAME: NICKIE DAVIS AGE: 78 SEX: M : 1945 ARRIVES VIA: Ambulance INFORMANT: Patient ED PROVIDER(S): Arcadio Monae DO CHIEF COMPLAINT: Low hemoglobin and platelets HPI: Patient is an 78-year-old male with a past medical history of a ACML following with Dr. Stratton who had blood work done today. He was referred in for hemoglobin of 4 and platelets of 1. He received chemo all last week. He denies any headache or change in vision. No chest pain but admits to feeling weak and rundown after walking around or doing anything. Denies any dysuria, urgency, or frequency. No other exacerbating or remitting factors. ADDITIONAL HISTORY OBTAINED: Per HPI Chronic Medical/Social Conditions Affecting Care: Per HPI PAST MEDICAL HISTORY:See Below PAST SURGICAL HISTORY:See Below FAMILY HISTORY:See Below SOCIAL HISTORY:See Below HOME MEDICATIONS:See Below ALLERGIES:See Below VITALS:See Below PHYSICAL EXAMINATION: GENERAL: Sitting up in bed, alert, pale, chronically ill-appearing EYE EXAM: normal conjunctiva. OROPHARYNX:mucous membranes are moist LUNGS: Clear to auscultation. Normal chest wall mechanics HEART: no murmurs, S1 normal and S2 normal ABDOMEN: abdomen soft, non-tender, normo-active bowel sounds, no masses, no rebound or guarding. SKIN: Petechiae present UPPER EXTREMITIES: upper extremities are grossly normal. LOWER EXTREMITIES: No pitting edema. NEURO EXAM: Normal sensorium, cranial nerves II-XII grossly intact, normal speech, no gross weakness of arms, no gross weakness of legs. MEDICAL DECISION MAKING: Patient is an 78-year-old male who presents ER for the above-stated complaint. IV was established medicals obtained. Labs show a pancytopenia with a white count of 0.17, hemoglobin of 4.5 and platelets of 1. Severe neutropenia less than 500. BMP along with LFTs bilirubin was remarkable for T. bili of 2.5. Lipase is unremarkable. UA was clean. Discussed with his engraver machine Dr. Stratton and he recommended 2 units of PRBCs as well as a unit of platelets. I discussed with the lab and they will pull them as they will be irradiated. Discussed case with the hospitalist for further evaluation management treatment. Consults/Care Managements Discussions: Per MDM Triage Nursing notes reviewed. Limited review of prior medical records performed Vital Signs: reviewed and remarkable for no significant abnormalities Differential diagnosis: Infection, dehydration, metabolic abnormality, hypo/hyperglycemia, electrolyte disturbance, anemia, hypoxia, cardiac sources, intracerebral event, toxicologic, neurologic, as well as other pathologies. ER treatment provided: See below Diagnostics interpreted by me include EKG and cardiac monitoring as listed below: -Cardiac Monitoring: An order was placed for continuous cardiac monitoring. The monitor shows a rate of 70 with sinus rhythm. -ECG: Sinus rhythm rate 81 Normal axis No PVCs Nonspecific ST wave changes in the lateral leads -Laboratory studies:Interpreted by me as stated above in MDM and shown below. Imaging studies: Xrays: As interpreted by me:none CTs show: none Procedures:none Critical Care: I have personally spent 35 minutes of critical care time in the direct management of this patient. This includes bedside care, interpretation of diagnostic studies, and testing, discussion with consultants, patient, and family members, and other required patient management activities. This 35 minutes is in excess of all separately billable procedures. Past Med/Surg History Problem List (Updated 12/03/23 @ 16:42 by Arcadio Monae DO) Symptomatic anemia (Acute) Pancytopenia (Acute) Abnormal blood cell count Bone marrow disease (Acute) Anemia (Acute) Thrombocytopenia (Acute) Elevated WBC count (Acute) Prostate cancer (Chronic 08/05/18) Medical History Atypical chronic myeloid leukemia Frequent PVCs Chest pain Sebaceous cyst Removed from chest wall Allergic rhinitis Gout 1 episode - now resolved Prostate cancer BPH (benign prostatic hyperplasia) Hypertension Surgical History H/O left inguinal hernia repair Hx of hemorrhoidectomy Family History Mother , 76yo Hypertension AML (acute myeloid leukemia) Father , 76yo Prostate cancer Diabetes Myocardial infarction Hypertension Sister Wilms' tumor Had a kidney removed Breast cancer Arthritis Hypertension Son , 46yo ALL (acute lymphoblastic leukemia) Meningioma Initially benign and later became malignant Daughter No problems noted. Social History Smoking Status: Former smoker Age Started Using Tobacco: 16; Cigarettes Per Day: Less than 1 PPD when smoking;smoked his pipe more;; Second Hand Exposure: No; Do You Dip or Chew Tobacco: No; Hx Alcohol Use: Yes (1 glass wine/week;Scotch 1/week;Beer in golf seasoning;) Alcohol type: wine Hx Substance Use: No Preferred Language: French Communication Ability: Effective Visual Impairment: No Limitations Hearing Ability: Normal Nuclear Medicine Physician Required: No Beliefs That Will Affect Care: None marital status: Current Living Situation: Spouse Current Living Situation Comment: [facility] current occupational status: retired 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;Professor; Feels Safe at Home: Yes Diet: other caffeine: No Assistive Devices: None Allergies Allergies Allergy/AdvReac Type Severity Reaction Status Date / Time adhesive tape Allergy Mild Redness of Verified 11/27/23 08:27 Skin Home Meds Home Medications Medication Instructions Recorded Confirmed allopurinol 300 mg tablet 300 mg PO DAILY 04/27/23 12/03/23 loratadine 10 mg tablet 10 mg PO DAILY 04/27/23 12/03/23 metoprolol succinate 25 mg 12.5 mg PO DAILY 04/27/23 12/03/23 tablet,extended release 24 hr acyclovir 400 mg tablet 400 mg PO BID 09/11/23 12/03/23 docusate sodium 100 mg capsule 100 mg PO DIRECTED PRN DURING 09/11/23 12/03/23 (Colace) CHEMO DAYS fluconazole 100 mg tablet 100 mg PO DAILY 09/11/23 12/03/23 levofloxacin 500 mg tablet 500 mg PO DAILY 09/11/23 12/03/23 [id number] 0.4 mg-calcium 162 1 tab PO DAILY 09/11/23 12/03/23 mg-iron 18 [id number] tablet polyethylene glycol 3350 17 17 g PO DIRECTED PRN DURING 09/11/23 12/03/23 gram/dose oral powder (Miralax) CHEMO DAYS. prochlorperazine maleate 10 mg 10 mg PO Q6H PRN NAUSEA/VOMITING 09/11/23 12/03/23 tablet Results & Data (ED) Vital Signs Vital Signs - 24 hr 12/03/23 12:57 12/03/23 12:58 12/03/23 13:02 Temperature 36.8 C Temperature Source Temporal Artery Scan Pulse Rate 72 75 Pulse Rate [Apical] Pulse Rhythm Pulse Strength Respiratory Rate 24 Respiratory Effort / Characteristics Non-Labored Spontaneous Respiratory Depth Normal Blood Pressure 168/81 H Blood Pressure [Right Arm] Blood Pressure Mean 110 Blood Pressure Mean [Right Arm] Blood Pressure Position Pulse Oximetry 100 100 Oxygen Delivery Method Room Air Room Air Oxygen Flow Rate Sepsis Recent Fever Within 48 Hours No Sepsis New/Unexplained Change in Mental Status No Sepsis Action Taken by Nursing No Action Required 12/03/23 13:02 12/03/23 14:07 12/03/23 14:26 Temperature 36.9 C 37.2 C Temperature Source Oral Oral Pulse Rate 69 68 Pulse Rate [Apical] 72 Pulse Rhythm Regular Regular Pulse Strength Normal Normal Respiratory Rate 17 20 18 Respiratory Effort / Characteristics Non-Labored Spontaneous Respiratory Depth Normal Blood Pressure 141/79 H 142/71 H Blood Pressure [Right Arm] 168/81 H Blood Pressure Mean 99 94 Blood Pressure Mean [Right Arm] 110 Blood Pressure Position Lying Lying Pulse Oximetry 100 100 100 Oxygen Delivery Method Room Air Oxygen Flow Rate Sepsis Recent Fever Within 48 Hours Sepsis New/Unexplained Change in Mental Status Sepsis Action Taken by Nursing 12/03/23 14:26 12/03/23 15:00 12/03/23 15:15 Temperature 37.0 C Temperature Source Oral Pulse Rate 68 72 Pulse Rate [Apical] Pulse Rhythm Regular Pulse Strength Normal Respiratory Rate 18 Respiratory Effort / Characteristics Respiratory Depth Blood Pressure 135/64 135/72 Blood Pressure [Right Arm] Blood Pressure Mean 87 93 Blood Pressure Mean [Right Arm] Blood Pressure Position Right Lateral Lying Pulse Oximetry 100 99 Oxygen Delivery Method Oxygen Flow Rate 0 Sepsis Recent Fever Within 48 Hours Sepsis New/Unexplained Change in Mental Status Sepsis Action Taken by Nursing 12/03/23 15:30 12/03/23 15:55 Temperature 37.6 C H Temperature Source Oral Pulse Rate 65 66 Pulse Rate [Apical] Pulse Rhythm Pulse Strength Respiratory Rate 23 Respiratory Effort / Characteristics Respiratory Depth Blood Pressure 142/70 H 129/62 Blood Pressure [Right Arm] Blood Pressure Mean 94 84 Blood Pressure Mean [Right Arm] Blood Pressure Position Semi-fowlers Pulse Oximetry 100 100 Oxygen Delivery Method Oxygen Flow Rate 0 0 Sepsis Recent Fever Within 48 Hours Sepsis New/Unexplained Change in Mental Status Sepsis Action Taken by Nursing Laboratory Data 12/03/23 12:55 12/03/23 12:55 Lab Results 12/03/23 12/03/23 12/03/23 Range/Units 10:46 10:46 12:55 WBC 0.17 L* (4.8-10.8) K/ul RBC 1.64 L (4.70-6.10) M/uL Hgb 4.5 L* (14.0-18.0) g/dl Hct 13.6 L* (42.0-52.0) % MCV 82.9 (80.0-100.0) fL MCH 27.4 (25.0-34.0) pg MCHC 33.1 (32.0-36.0) g/dL RDW Std Deviation 48.1 H (36.4-46.3) fL RDW Coeff of Lilliam 16.6 H (11.5-14.5) % Plt Count 1 L* (130-400) K/uL Neut # (Auto) < 0.50 L* (1.40-6.50) K/uL Sodium 135 L (136-145) mmol/L Potassium 4.3 (3.5-5.1) mmol/L Chloride 105 (98-107) mmol/L Carbon Dioxide 24 (21-32) mmol/L Anion Gap 6 (3-11) BUN 35 H (6-23) mg/dl Creatinine 1.33 (0.6-1.4) mg/dl Est Cr Clr Drug Dosing 59.4 ml/min Est GFR ( Amer) 58.1 ml/min Est GFR (Non-Af Amer) 50.1 ml/min BUN/Creatinine Ratio 26.3 H (10-20) Glucose 110 H (70-99(Fasting)) mg/dl Calcium 8.5 L (8.6-10.3) mg/dl Total Bilirubin 2.5 H (0.2-1.0) mg/dl AST 10 L (13-39) U/L ALT 10 (7-52) U/L Alkaline Phosphatase 73 (34-104) U/L Total Protein 6.9 (6.0-8.3) gm/dl Albumin 4.0 (3.4-5.0) gm/dl Globulin 2.9 (2.5-4.0) gm/dl Albumin/Globulin Ratio 1.4 (0.9-2) Lipase 14 (11-82) U/L Urine Color Urine Appearance (Clear) Urine pH (4.5-7.5) Ur Specific Johnson (1.000-1.030) Urine Protein (Negative) Urine Glucose (UA) (Negative) Urine Ketones (Negative) Urine Blood (Negative) Urine Nitrite (Negative) Urine Bilirubin (Negative) Urine Urobilinogen (Negative) Ur Leukocyte Esterase (Negative) Crossmatch See Detail See Detail 12/03/23 Range/Units 16:09 WBC (4.8-10.8) K/ul RBC (4.70-6.10) M/uL Hgb (14.0-18.0) g/dl Hct (42.0-52.0) % MCV (80.0-100.0) fL MCH (25.0-34.0) pg MCHC (32.0-36.0) g/dL RDW Std Deviation (36.4-46.3) fL RDW Coeff of Lilliam (11.5-14.5) % Plt Count (130-400) K/uL Neut # (Auto) (1.40-6.50) K/uL Sodium (136-145) mmol/L Potassium (3.5-5.1) mmol/L Chloride (98-107) mmol/L Carbon Dioxide (21-32) mmol/L Anion Gap (3-11) BUN (6-23) mg/dl Creatinine (0.6-1.4) mg/dl Est Cr Clr Drug Dosing ml/min Est GFR ( Amer) ml/min Est GFR (Non-Af Amer) ml/min BUN/Creatinine Ratio (10-20) Glucose (70-99(Fasting)) mg/dl Calcium (8.6-10.3) mg/dl Total Bilirubin (0.2-1.0) mg/dl AST (13-39) U/L ALT (7-52) U/L Alkaline Phosphatase (34-104) U/L Total Protein (6.0-8.3) gm/dl Albumin (3.4-5.0) gm/dl Globulin (2.5-4.0) gm/dl Albumin/Globulin Ratio (0.9-2) Lipase (11-82) U/L Urine Color Yellow Urine Appearance Clear (Clear) Urine pH 6.5 (4.5-7.5) Ur Specific Johnson 1.017 (1.000-1.030) Urine Protein Negative (Negative) Urine Glucose (UA) Negative (Negative) Urine Ketones Negative (Negative) Urine Blood Negative (Negative) Urine Nitrite Negative (Negative) Urine Bilirubin Negative (Negative) Urine Urobilinogen Negative (Negative) Ur Leukocyte Esterase Negative (Negative) Crossmatch Discharge Plan Visit Data Chief Complaint: Abnormal Labs/Diagnostic Testing ED Provider: Arcadio Monae Discharge Problem: Symptomatic anemia, Thrombocytopenia, Pancytopenia Forms Stand Alone Forms: My [facility] Prescriptions Prescriptions: No Action allopurinol 300 mg Tablet 300 mg PO DAILY metoprolol succinate 25 mg Tablet Extended Release 24 Hr 12.5 mg PO DAILY loratadine 10 mg Tablet 10 mg PO DAILY fluconazole 100 mg tablet 100 mg PO DAILY prochlorperazine maleate 10 mg tablet 10 mg PO Q6H PRN (Reason: NAUSEA/VOMITING) acyclovir 400 mg tablet 400 mg PO BID docusate sodium [Colace] 100 mg Capsule 100 mg PO DIRECTED PRN (Reason: DURING CHEMO DAYS) polyethylene glycol 3350 [Miralax] 17 gram/dose Powder 17 g PO DIRECTED PRN (Reason: DURING CHEMO DAYS.) levofloxacin 500 mg tablet 500 mg PO DAILY Centrum 0.4-162-18 mg Tablet 1 tab PO DAILY Referrals Referrals: Mohan Haddad DO [Primary Care Provider] -
[2023-12-03 13:20] LABS: Bilirubin,Total 2.5 mg/dl (0.2-1.0); Calcium 8.5 mg/dl (8.6-10.3); Potassium 4.3 mmol/L (3.5-5.1)
[2023-12-03 13:26] LABS: Albumin Globulin Ratio 1.4 (0.9-2); BUN Creatinine Ratio 26.3 (10-20); Creatinine Clr Calc Pharmacy 59.4 ml/min; Est GFR (African American) 58.1 ml/min; Est GFR (Non-African American) 50.1 ml/min; Globulin 2.9 gm/dl (2.5-4.0); Total Protein 6.9 gm/dl (6.0-8.3)
[2023-12-03 13:39] LABS: Hematocrit (blood only) 13.6 % (42.0-52.0); Hemoglobin 4.5 g/dl (14.0-18.0); Mean Corpuscular Hemoglobin 27.4 pg (25.0-34.0); Mean Corpuscular Hgb Conc 33.1 g/dL (32.0-36.0); Mean Corpuscular Volume 82.9 fL (80.0-100.0); Neutrophils # (auto) < 0.50 K/uL (1.40-6.50); Platelet Count 1 K/uL (130-400); RDW Coefficient of Variation 16.6 % (11.5-14.5); RDW Standard Deviation 48.1 fL (36.4-46.3); Red Blood Count 1.64 M/uL (4.70-6.10); White Blood Count 0.17 K/ul (4.8-10.8)
--- NOTE | 2023-12-03 13:50 | History & Physical Report ---
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 Stratton after he was alerted that his hemoglobin level was 4 and his platelet count was 1k on routine bloodwork performed earlier today. He was diagnosed with CML in April 2023. Patient is currently on the following chemotherapy regimen: Venetoclax + Decitabine D1-5 Q28D. Patient's last dose of Decitabine was on 11/30 and last dose of Venetoclax was on 11/22. He gets weekly bloodwork done every Sunday. Reports he has been getting blood product transfusions weekly for the past ~5 weeks. No recent fevers. Severe Pancytopenia Atypical CML on Chemotherapy WBC 0.17k, Hgb 4.5, Hct 13.6% & Plt Ct 1k on admission. Dr. Stratton made aware of admission via [employer] - routine consult placed. 2 units of PRBCs & 1 unit of platelets ordered by ED provider. 20mg IV Lasix to be given following administration of 2 units of PRBCs - communication order in place. Additional 2 units of platelets & 1 unit of PRBCs ordered. Repeat CBC w/diff Q6H x 2 - follow closely. Neutropenic precautions. Fall precautions, strict bedrest - nursing aware. Repeat labs in AM. Magic Mouthwash for oral sores. Continue prophylactic home meds. CKD Stage III: Cr 1.33 on admission, baseline Cr ~1.5-2.0 per chart review. Avoid nephrotoxic meds when able. Continue to monitor renal fx closely. Other Chronic Medical Conditions: HTN, seasonal allergies, H/O gout --> Can continue home meds for these specific conditions. DVT Prophylaxis: Contraindicated at this time ISO severe pancytopenia. Code Status: FULL CODE PCP: Mohan Haddad DO Disposition: Admit to PCU/Telemetry Patient seen in collaboration with Dr. Estevez. Please see addendum. I spent a total of 70 minutes coordinating, documenting, and providing care for this patient excluding time spent in the performance of separately billed services. This included personally reviewing all current laboratories and imaging studies, medical reconciliation, outpatient chart review and discussion with specialists. This chart was completed in part utilizing Speech Voice Recognition Software. Grammatical errors, random word insertions, pronoun errors, and incomplete sentences are an occasional consequence of this system due to software limitations, ambient noise, and hardware issues. Any formal questions or concerns about the content, text, or information contained within the body of this dictation should be directly addressed to the provider for clarification. 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 Stratton after he was alerted that his hemoglobin level was 4 and his platelet count was 1k on routine bloodwork performed earlier today. History obtained from patient, at bedside and associated chart review. Patient was seen directly with Dr. Estevez. He was diagnosed with CML in April 2023. Patient is currently on the following chemotherapy regimen according to [facility] of [facility] documentation: Venetoclax + Decitabine D1-5 Q28D. Patient's last dose of Decitabine was on 11/30 and last dose of Venetoclax was on 11/22. He gets weekly bloodwork done every Sunday. Was alerted this morning that his hemoglobin level was 4 and his platelet count was 1k - told to go to the ED for evaluation in anticipation for transfusions. Patient has been feeling extremely weak and unsteady on his feet today. He was not able to stand up and get to the car to come to the hospital, hence they called EMS for transportation to the ED. He has been getting blood product transfusions weekly for the past 5 weeks. No recent fevers, sore throat or cough. Denies any chest pain or abdominal pain. Appetite has been decreased. His tongue has been sore for the past couple of weeks. Did have pain in his right hip approximately 2 weeks ago. Describes this pain as excruciating, was prescribed oxycodone and only took 2 doses. Previous tobacco use history - last smoked in 1970. No alcohol use. No recreational drug use. Allergies Allergy/AdvReac Type Severity Reaction Status Date / Time adhesive tape Allergy Mild Redness of Verified 11/27/23 08:27 Skin Home Medications Medication Instructions Recorded Confirmed Type allopurinol 300 mg tablet 300 mg PO DAILY 04/27/23 12/03/23 History loratadine 10 mg tablet 10 mg PO DAILY 04/27/23 12/03/23 History metoprolol succinate 25 mg 12.5 mg PO DAILY 04/27/23 12/03/23 History tablet,extended release 24 hr acyclovir 400 mg tablet 400 mg PO BID 09/11/23 12/03/23 History docusate sodium 100 mg capsule 100 mg PO DIRECTED PRN DURING 09/11/23 12/03/23 History (Colace) CHEMO DAYS fluconazole 100 mg tablet 100 mg PO DAILY 09/11/23 12/03/23 History levofloxacin 500 mg tablet 500 mg PO DAILY 09/11/23 12/03/23 History sbuxkjka-vmg-GJ 0.4 mg-calcium 162 1 tab PO DAILY 09/11/23 12/03/23 History mg-iron 18 fp-vkxywxi-ipdtmi tablet polyethylene glycol 3350 17 17 g PO DIRECTED PRN DURING 09/11/23 12/03/23 History gram/dose oral powder (Miralax) CHEMO DAYS. prochlorperazine maleate 10 mg 10 mg PO Q6H PRN NAUSEA/VOMITING 09/11/23 12/03/23 History tablet Past Med/Surg History Problem List (Updated 12/03/23 @ 16:42 by Arcadio Monae DO) Symptomatic anemia (Acute) Pancytopenia (Acute) Abnormal blood cell count Bone marrow disease (Acute) Anemia (Acute) Thrombocytopenia (Acute) Elevated WBC count (Acute) Prostate cancer (Chronic 08/05/18) Medical History Atypical chronic myeloid leukemia Frequent PVCs Chest pain Sebaceous cyst Removed from chest wall Allergic rhinitis Gout 1 episode - now resolved Prostate cancer BPH (benign prostatic hyperplasia) Hypertension Surgical History H/O left inguinal hernia repair Hx of hemorrhoidectomy Family History Mother , 76yo Hypertension AML (acute myeloid leukemia) Father , 76yo Prostate cancer Diabetes Myocardial infarction Hypertension Sister Wilms' tumor Had a kidney removed Breast cancer Arthritis Hypertension Son , 46yo ALL (acute lymphoblastic leukemia) Meningioma Initially benign and later became malignant Daughter No problems noted. Social History Smoking Status: Former smoker Age Started Using Tobacco: 16; Cigarettes Per Day: Less than 1 PPD when smoking;smoked his pipe more;; Second Hand Exposure: No; Do You Dip or Chew Tobacco: No; Hx Alcohol Use: Yes (1 glass wine/week;Scotch 1/week;Beer in golf seasoning;) Alcohol type: wine Hx Substance Use: No Preferred Language: Romansh Communication Ability: Effective Visual Impairment: No Limitations Hearing Ability: Normal Lands Resource Manager Required: No Beliefs That Will Affect Care: None marital status: Current Living Situation: Spouse Current Living Situation Comment: [facility] current occupational status: retired 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 Physical Exam Physical Exam: Please refer to Dr. Estevez's addendum for physical examination findings. Results & Data Results & Data Vital Signs (Past 12 Hours) Vital Signs Temp Pulse Pulse Resp BP BP Pulse Ox 12/03/23 13:02 72 17 168/81 H 100 12/03/23 13:02 100 12/03/23 12:58 75 12/03/23 12:57 36.8 C 72 24 168/81 H 100 O2 Del Method 12/03/23 13:02 Room Air 12/03/23 13:02 Room Air 12/03/23 12:58 12/03/23 12:57 Room Air Laboratory Results Short CBC 12/03/23 Range/Units 12:55 WBC 0.17 L* (4.8-10.8) K/ul Hgb 4.5 L* (14.0-18.0) g/dl Hct 13.6 L* (42.0-52.0) % Plt Count 1 L* (130-400) K/uL BMP 08/26/24 12:55 Sodium 135 L Potassium 4.3 Chloride 105 Carbon Dioxide 24 BUN 35 H Creatinine 1.33 Glucose 110 H Calcium 8.5 L Liver Function 12/03/23 Range/Units 12:55 Total Bilirubin 2.5 H (0.2-1.0) mg/dl AST 10 L (13-39) U/L ALT 10 (7-52) U/L Alkaline Phosphatase 73 (34-104) U/L Albumin 4.0 (3.4-5.0) gm/dl Code Status & VTE Plan Code Status FULL CODE Supervising Physician Co-Signing Physician Notes 78-year-old male with PMH of prostate cancer, CML diagnosed April 2023 undergoing chemotherapy with [facility] oncology, CKD stage IIIb, actinic keratosis, obesity was reported to the ED by his oncology office due to noted thrombocytopenia and anemia in his blood work today. Patient's last dose of Decitabin was on and last dose of venetoclax was on . patient undergoing active chemotherapy. Patient reports that he had needed almost every week blood product transfusion for last 4-5 weeks. Patient denies any febrile illness/sore throat/cough/chest pain/belly pain. Reports decreased appetite and severe weakness that he was not able to stand up and get to the car to come to the hospital and hence they called ambulance. Denies any acute changes in bowel or bladder habit. Reports sore mouth. Pancytopenia: Severe, in the setting of ongoing chemotherapy. Oncology made aware. Will transfuse 2-3 unit PRBC and 3 unit platelet. Repeat CBC with differential after blood transfusion. Repeat labs in AM. Oncology consult. Neutropenic precaution, nursing made aware. Fall precaution, strict bedrest. Can use Magic mouth wash 5 mL every 6 hours as needed for sore mouth. Utilize 20 Mg IV Lasix after 2 unit PRBC are done. Other chronic medical conditions: Resume home meds as able, hold chemotherapy medications. No Chemo DVT Px. Pt not on any blood thinners now. On exam: GENERAL: Alert and oriented x3. NAD, on RA. HEENT: + pallor, + icterus. Pupils equal, round and reactive to light. Oral mucosa moist. NECK: No JVD, no neck masses. HEART: S1 and S2 heard. Regular rate and rhythm. No murmur, no gallop. RESPIRATORY SYSTEM: Normal AP diameter. No accessory muscle use. No wheezing, no crackles. ABDOMEN: Soft, bowel sounds present, nontender, no distention. CENTRAL NERVOUS SYSTEM: No facial droop. Speech is clear. Obeys simple commands. Moves extremities. EXTREMITIES: No edema, no erythema seen. I have seen and examined the patient and have discussed the case with the provider above. I agree with the assessment and plan as stated.
[2023-12-03 16:25] LABS: Appearance Urine Clear (Clear); Bilirubin Urine Negative (Negative); Blood Urine Negative (Negative); Color Urine Yellow; Glucose Urine UA Negative (Negative); Ketones Urine Negative (Negative); Leukocyte Esterase Urine Negative (Negative); Nitrite Urine Negative (Negative); Protein Urine Negative (Negative); Specific Gravity Urine 1.017 (1.000-1.030); Urobilinogen Urine Negative (Negative); pH Urine 6.5 (4.5-7.5)
[2023-12-03] MEDS ORDERED: DOCUSATE SODIUM 100 MG CAP PO PRN (17:08)
[2023-12-03] MEDS ORDERED: PROMETHAZINE 6.25 MG/50.25 ML BAG IV PRN (17:08)
[2023-12-03] MEDS ORDERED: POLYETHYLENE (MIRALAX) 17 GM PACK PO PRN (17:08)
[2023-12-03] MEDS: FUROSEMIDE INJ 20 MG/2 ML VIAL IV ONE (18:38)
[2023-12-03] MEDS: METOPROLOL SUCC 25MG EXT REL TAB PO SCH (20:08)
[2023-12-03] MEDS: ACYCLOVIR 400 MG TAB PO SCH (20:09)
[2023-12-03] MEDS: FIRST - Mouthwash BLM 119 ML PO PRN (20:35)
[2023-12-03] MEDS: ACETAMINOPHEN 325 MG TAB PO PRN (21:39)
[2023-12-04 03:59] LABS: Red Blood Count 1.56 M/uL (4.70-6.10); White Blood Count 0.04 K/ul (4.8-10.8)
[2023-12-04 04:00] LABS: Hematocrit (blood only) 12.8 % (42.0-52.0); Hemoglobin 4.5 g/dl (14.0-18.0); Mean Corpuscular Hemoglobin 28.8 pg (25.0-34.0); Mean Corpuscular Hgb Conc 35.2 g/dL (32.0-36.0); Mean Corpuscular Volume 82.1 fL (80.0-100.0); Neutrophils # (auto) < 0.50 K/uL (1.40-6.50); Platelet Count 6 K/uL (130-400); RDW Coefficient of Variation 15.5 % (11.5-14.5); RDW Standard Deviation 43.8 fL (36.4-46.3)
[2023-12-04] MEDS ORDERED: SODIUM CHLORIDE 0.9% 250 ML IV PRN ×4 (04:24→12:58)
[2023-12-04 04:35] LABS: Albumin Globulin Ratio 1.3 (0.9-2); Albumin Level 3.6 gm/dl (3.4-5.0); BUN Creatinine Ratio 30.4 (10-20); Bilirubin,Total 4.1 mg/dl (0.2-1.0); Creatinine Clr Calc Pharmacy 52.4 ml/min; Est GFR (African American) 51.1 ml/min; Est GFR (Non-African American) 44.1 ml/min; Globulin 2.7 gm/dl (2.5-4.0); Magnesium 1.8 mg/dl (1.7-2.4); Phosphorus 4.8 mg/dl (2.5-4.9); Potassium 3.7 mmol/L (3.5-5.1); Total Protein 6.3 gm/dl (6.0-8.3)
[2023-12-04] MEDS: ACETAMINOPHEN 325 MG TAB PO STA (05:53)
[2023-12-04] MEDS: LEVALBUTEROL 1.25 MG/3 ML NEB NEB STA (06:06)
[2023-12-04] MEDS: IPRATROPIUM BROMIDE NEB SOLN 0.02% 0.5MG/2.5ML VIAL INH STA (06:06)
--- NOTE | 2023-12-04 07:39 | XRay Report ---
XR chest 1V portable HISTORY: Shortness of breath. COMPARISON: Chest 04/27/2023. FINDINGS: No pneumothorax. No pleural effusions. The heart remains mildly enlarged. There are low katarzyna g volumes. No focal lung consolidations to suggest a pneumonia. There is mild central pulmonary vascu lar congestion without overt edema. There is no acute fractures. IMPRESSION: Cardiomegaly and mild pulmonary vascular congestion without overt edema. ACT 112: Negative or not required by law. Electronically signed by: Dean Weber M.D. 12/04/2023 7:38 AM
[2023-12-04 09:38] LABS: Blood Urine 3+ (Negative)
[2023-12-04] MEDS: CEROVITE ADV FORMULA TAB PO SCH (10:01)
[2023-12-04] MEDS: LORATADINE 10 MG TAB PO SCH (10:01)
[2023-12-04] MEDS: levoFLOXacin 500 MG TAB PO SCH (10:01)
[2023-12-04] MEDS: allopurinoL 300 MG TAB PO SCH (10:01)
[2023-12-04] MEDS: FLUCONAZOLE 100 MG TAB PO SCH (10:01)
[2023-12-04 10:29] LABS: Adenovirus PCR Not Detected (NotDetected); Bordetella parapertussis PCR Not Detected (NotDetected); Bordetella pertussis PCR Not Detected (NotDetected); Chlamydia pneumoniae PCR Not Detected (NotDetected); Coronavirus 229E PCR Not Detected (NotDetected); Coronavirus CoV-2 (COVID19)PCR Not Detected (NotDetected); Coronavirus HKU1 PCR Not Detected (NotDetected); Coronavirus NL63 PCR Not Detected (NotDetected); Coronavirus OC43PCR Not Detected (NotDetected); Human Metapneumovirus PCR Not Detected (NotDetected); Influenza A PCR Not Detected (NotDetected); Influenza B PCR Not Detected (NotDetected); Mycoplasma pneumoniae PCR Not Detected (NotDetected); Parainfluenza Virus 1 PCR Not Detected (NotDetected); Parainfluenza Virus 2 PCR Not Detected (NotDetected); Parainfluenza Virus 3 PCR Not Detected (NotDetected); Parainfluenza Virus 4 PCR Not Detected (NotDetected); Respiratory Syncytial VirusPCR Not Detected (NotDetected); Rhinovirus/Enterovirus PCR Not Detected (NotDetected)
[2023-12-04 12:14] LABS: Mean Corpuscular Hemoglobin 28.1 pg (25.0-34.0); Mean Corpuscular Hgb Conc 33.8 g/dL (32.0-36.0); Mean Corpuscular Volume 83.2 fL (80.0-100.0); RDW Coefficient of Variation 15.9 % (11.5-14.5); RDW Standard Deviation 46.8 fL (36.4-46.3); Red Blood Count 1.67 M/uL (4.70-6.10)
[2023-12-04 12:15] LABS: Hematocrit (blood only) 13.9 % (42.0-52.0); Hemoglobin 4.7 g/dl (14.0-18.0); Platelet Count 5 K/uL (130-400); White Blood Count 0.06 K/ul (4.8-10.8)
[2023-12-04] MEDS: FUROSEMIDE INJ 20 MG/2 ML VIAL IV ONE ×2 (14:35→19:39)
[2023-12-04 15:22] LABS: Bilirubin Direct 0.8 mg/dl (0-0.2)
--- NOTE | 2023-12-04 15:48 | CT Scan Report ---
CT SCAN OF THE ABDOMEN AND PELVIS WITHOUT IV CONTRAST CLINICAL HISTORY: Anemia. COMPARISON STUDY: Abdominal CT dated 04/27/2023. PET/CT dated 05/09/2023. TECHNIQUE: CT scan of the abdomen and pelvis is performed from the lung bases to the proximal femora. Images are reviewed in the axial, sagittal, and coronal planes. IV contrast was not administered for this examination. Note that the examination is suboptimal without oral and IV contrast. A dose lower ing technique was utilized adhering to the principles of ALARA. CT DOSE: 1556.74 mGy.cm FINDINGS: Lung bases: The heart is mildly enlarged and without pericardial effusion. The coronary arteries a de nsity calcified. There is diminished attenuation of the cardiac blood pool as compared to the myocard ium suggesting anemia. The lung bases are clear noting bibasilar scarring/atelectasis. A small hiatal hernia is noted. Liver: The unenhanced liver is normal in size, contour, and attenuation. There is no intrahepatic cory iary ductal dilatation. Gallbladder: There are calcified gallstones with no CT evidence of acute cholecystitis. Spleen: The spleen is enlarged measuring 16.7 cm in length. The spleen is decreased in size from prev ious and there is mild perisplenic infiltration. Pancreas: The unenhanced pancreas is mildly atrophic and grossly unremarkable. Adrenal glands: Unremarkable. Kidneys: The unenhanced kidneys demonstrate cortical atrophy and are without hydronephrosis. There ar e no renal calculi identified. There is no evidence of contour deforming renal mass lesion. Abdominal vasculature: The abdominal aorta is normal in course and caliber. Bowel: There is moderate colonic fecal retention. No bowel obstruction is identified. There are scatt ered colonic diverticula without CT evidence of acute diverticulitis. The appendix is well-visualize d and normal. Peritoneum/retroperitoneum: There is no intraperitoneal free air or abdominal ascites. There is a fat -containing umbilical hernia. No retroperitoneal hemorrhage is identified. Lymphadenopathy: There are mildly enlarged retroperitoneal lymph node. These have decreased in size f rom 05/09/2023. An aortocaval node on image #168 measures 1.7 x 1.0 cm premises previously measuring 2 .6 x 1.6 cm). A node in the fatimah hepatis on image #135 measures 2.8 x 1.6 cm. Iliac chain and pelvic sidewall lymphadenopathy is most likely resolved. Pelvic viscera: The prostate gland is diminutive and heterogeneous with mild surrounding infiltration . Brachytherapy implants are noted in the prostate. The bladder wall is thickened/trabeculated indica ting chronic outlet obstruction. There is evidence of previous left inguinal herniorrhaphy. Skeletal structures: The skeletal structures are osteopenic. Mild lumbosacral spondylosis is observed . There is a mild chronic compression deformity of T11. No lytic or blastic lesions are seen. IMPRESSION: 1. There is no intraperitoneal or retroperitoneal hemorrhage as clinically queried. 2. Splenomegaly has improved as compared to 05/09/2023. There is mild perisplenic infiltration which m ay be treatment related. 3. Retroperitoneal, iliac chain, and pelvic sidewall lymphadenopathy has decreased from 05/09/2023. 4. Cardiomegaly. 5. Cholelithiasis. 6. There is mild infiltration around the prostate gland. Correlate with clinical findings and urinaly sis. 7. Additional findings as above. ACT 112: Negative or not required by law. Electronically signed by: Ash Coe M.D. 12/04/2023 3:46 PM
[2023-12-04 15:53] LABS: Bilirubin Direct 0.8 mg/dl (0-0.2); Bilirubin,Total 3.6 mg/dl (0.2-1.0)
--- NOTE | 2023-12-04 15:54 | Hospitalist Progress Note ---
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 Stratton after he was alerted that his hemoglobin level was 4 and his platelet count was 1k on routine blood work performed earlier today. He was diagnosed with CML in April 2023. Patient is currently on the following chemotherapy regimen: Venetoclax + Decitabine D1-5 Q28D. Patient's last dose of Decitabine was on 11/30 and last dose of Venetoclax was on 11/22. He gets weekly bloodwork done every Sunday. Reports he has been getting blood product transfusions weekly for the past ~5 weeks. No recent fevers. Severe Pancytopenia Atypical CML on Chemotherapy--ongoing chemotherapy --CT ABD:There is no intraperitoneal or retroperitoneal hemorrhage as clinically queried. Splenomegaly has improved as compared to 05/09/2023. There is mild perisplenic infiltration which may be treatment related. Retroperitoneal, iliac chain, and pelvic sidewall lymphadenopathy has decreased from 05/09/2023. Cardiomegaly. Cholelithiasis. There is mild infiltration around the prostate gland. Correlate with clinical findings and urinalysis. -- Follows with [facility] oncology --S/P 2 units PRBC and 3 units platelets --Still has significant pancytopenia IV Lasix as needed to minimize volume overload Will need to continue neutropenic isolation precautions Oncology consulted for further input Transfusion reaction -- Patient had a transfusion reaction while transfusing 3rd unit of PRBC, 4th unit of platelets and was discontinued -- Concern for hemolysis Indirect bilirubin elevated. LDH normal. Haptoglobin pending. Will need to give acetaminophen, Benadryl prior to transfusions Other transfusion reaction workup pending Monitor for volume overload Lasix as needed PVCs Monitor and replete electrolytes as needed CKD Stage III: Baseline Cr ~1.5-2.0 per chart review. Avoid nephrotoxic meds when able Monitor renal function Creatinine 1.4 today Other Chronic Medical Conditions: HTN, seasonal allergies, H/O gout Can continue home meds for these specific conditions. DVT Px: SCDs for now Re: Severe pancytopenia. Code Status: Full code for now May need to readdress CODE STATUS based on prognosis Admission and Anticipated Discharge Date Admission Date: December 03, 2023 Subjective Patient is seen and examined at bedside States having generalized weakness, feels tired Also reports dyspnea No obvious bleeding issues States having hip discomfort Discussed with oncology today Denies any chest pain, nausea, vomiting, abdominal pain Review of Systems Review of Systems: All systems reviewed & are unremarkable except as noted in Subjective Physical Exam Physical Exam: Physical Exam: Vitals signs as noted above General Appearance:Moderately built and nourished, no apparent distress, chronically appearing Head: normocephalic, Atraumatic Eyes: normal inspection, EOMI Neck: supple, Trachea midline Respiratory/Chest: Normal breath sounds, CTA, No accessory muscle use Cardiovascular: S1, S2, No murmur Abdomen/GI:Soft, Non tender, Bowel sounds present Extremities/Musculoskeletal:normal inspection, 1+ pedal edema Neurologic/Psych:AAOX3, grossly no focal neurological deficits Skin: normal color, warm,+pale Results & Data Results & Data Vital Signs (Past 12 Hours) Vital Signs Temp Pulse Pulse Pulse Resp BP BP 12/04/23 14:39 36.8 C 93 H 26 H 129/66 12/04/23 11:40 37.0 C 93 H 18 127/73 12/04/23 08:10 37.2 C 91 H 20 148/71 H 12/04/23 07:54 37.6 C H 84 26 H 125/63 12/04/23 07:35 85 12/04/23 07:35 12/04/23 06:39 37.1 C 89 28 H 123/66 12/04/23 06:28 37.8 C H 89 32 H 152/70 H 12/04/23 06:09 104 H 26 H 12/04/23 05:40 38.4 C H 99 H 40 H 154/76 H 12/04/23 05:26 37 C 88 18 114/70 12/04/23 05:25 37 C 88 18 114/70 12/04/23 04:30 37.4 C Pulse Ox O2 Del Method O2 Flow Rate 12/04/23 14:39 99 Oxymask 2 12/04/23 11:40 95 Room Air 12/04/23 08:10 97 Room Air 08/27/24 07:54 97 Room Air 12/04/23 07:35 12/04/23 07:35 Room Air 12/04/23 06:39 96 Room Air 12/04/23 06:28 100 Room Air 12/04/23 06:09 99 Room Air 12/04/23 05:40 99 12/04/23 05:26 98 12/04/23 05:25 98 12/04/23 04:30 Laboratory Results Short CBC 12/04/23 12/04/23 Range/Units 03:19 09:54 WBC 0.04 L* 0.06 L* (4.8-10.8) K/ul Hgb 4.5 L* 4.7 L* (14.0-18.0) g/dl Hct 12.8 L* 13.9 L* (42.0-52.0) % Plt Count 6 L* D 5 L* (130-400) K/uL BMP 12/04/23 03:19 Sodium 134 L Potassium 3.7 Chloride 104 Carbon Dioxide 19 L BUN 45 H Creatinine 1.48 H Glucose 133 H Calcium 8.0 L Liver Function 12/04/23 Range/Units 03:19 Total Bilirubin 4.1 H D (0.2-1.0) mg/dl Direct Bilirubin 0.8 H (0-0.2) mg/dl AST 11 L (13-39) U/L ALT 9 (7-52) U/L Alkaline Phosphatase 63 (34-104) U/L Albumin 3.6 (3.4-5.0) gm/dl Urine 12/03/23 Range/Units 16:09 Urine Color Yellow Urine Appearance Clear (Clear) Urine pH 6.5 (4.5-7.5) Ur Specific [place] 1.017 (1.000-1.030) Urine Protein Negative (Negative) Urine Glucose (UA) Negative (Negative)
[2023-12-04] MEDS: POTASSIUM CHLORIDE CRTAB 20 MEQ TABCR PO ONE (16:11)
[2023-12-04] MEDS: MAGNESIUM SULFATE / D5W 1 GM/100 ML BAG IV ONE (16:12)
[2023-12-04] MEDS: PANTOprazole 40 MG in SYRINGE 0 ML IV SCH (16:12)
--- NOTE | 2023-12-04 16:43 | Oncology Consultation ---
Date of Consultation December 04, 2023 Assessment & Plan (1) Pancytopenia: I had a very lengthy discussion with Mr. Burkett and his . At this point he is transfusion dependent but refractory. His leukemia seems to have progressed as the bone marrow failure has worsened. He is on oxygen. We discussed options going forward of which there are not many outside of intensive chemotherapy. In my opinion he is not a candidate for intensive chemotherapy and I am recommending hospice care. The patient and his agreed Plan . Discussed with hospital medicine that the patient is agreeable to hospice care. Hematology will continue to follow the patient make appropriate recommendations. 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 The increasing blast count and increased fibrosis are suggestive of progression of the disease. Please correlate clinically Previous treatment treatment: Azacitidine, 75 mg/m cycle 1 day 1: 05/21/2023 Azacitidine, 75 mg/m cycle 2-day 1: 06/18/2023 Azacitidine 75 mg/m cycle 3-day 1: 07/16/2023 Azacitidine 75 mg/m cycle 4-day 1: 08/13/2023 Current treatment: Decitabine, day 1-5 + venetoclax; 09/24/2023 start decitabine Decitabine, day 1-5+ venetoclax; cycle 2-day 1: 10/22/2023 Decitabine, day 1-5 + venetoclax; day 1-14; cycle 3 day 1: 11/20/2023 Infectious prophylaxis: Levofloxacin, acyclovir, fluconazole CT chest abdomen pelvis, 04/27/2023 4 spleen is 21 cm in size, calcified splenic granulomas. Liver is 20.3 cm in length. There are numerous enlarged retroperitoneal and iliac lymph nodes, as well as mildly enlarged cardiophrenic, mesenteric and upper abdominal lymph nodes. These lymph nodes are 2.6 x 1.7 cm, the other ones are 2.4 x 1.5 cm. Cardiomegaly. T trace perisplenic ascites PET CT scan, 05/09/2023: Multilevel lymphadenopathy, retroperitoneal lymph nodes measuring 16 mm. Mesenteric nodes measuring up to 11 mm. Appendix is normal. Spleen is measuring 19.1 cm. Diffuse FGD uptake and lymphadenopathy in the skeletal system Mr. Burkett is very well-known to me from the clinic with a diagnosis of atypical CML who was initially on hypomethylating agents then was on hypomethylating agent plus venetoclax. He is currently admitted to the hospital with severe fatigue and weakness. His appetite is poor. He is pancytopenic. He has received multiple blood transfusion and platelet transfusion however his counts have not improved. Allergies Allergy/AdvReac Type Severity Reaction Status Date / Time adhesive tape Allergy Mild Redness of Verified 11/27/23 08:27 Skin Home Medications Medication Instructions Recorded Confirmed Type allopurinol 300 mg tablet 300 mg PO DAILY 04/27/23 12/03/23 History loratadine 10 mg tablet 10 mg PO DAILY 04/27/23 12/03/23 History metoprolol succinate 25 mg 12.5 mg PO DAILY 04/27/23 12/03/23 History tablet,extended release 24 hr acyclovir 400 mg tablet 400 mg PO BID 09/11/23 12/03/23 History docusate sodium 100 mg capsule 100 mg PO DIRECTED PRN DURING 09/11/23 12/03/23 History (Colace) CHEMO DAYS fluconazole 100 mg tablet 100 mg PO DAILY 09/11/23 12/03/23 History levofloxacin 500 mg tablet 500 mg PO DAILY 09/11/23 12/03/23 History [id number] 0.4 mg-calcium 162 1 tab PO DAILY 09/11/23 12/03/23 History mg-iron 18 [id number] tablet polyethylene glycol 3350 17 17 g PO DIRECTED PRN DURING 09/11/23 12/03/23 History gram/dose oral powder (Miralax) CHEMO DAYS. prochlorperazine maleate 10 mg 10 mg PO Q6H PRN NAUSEA/VOMITING 09/11/23 12/03/23 History tablet Patient History Medical History Atypical chronic myeloid leukemia Frequent PVCs Chest pain Sebaceous cyst Removed from chest wall Allergic rhinitis Gout 1 episode - now resolved Prostate cancer BPH (benign prostatic hyperplasia) Hypertension Surgical History H/O left inguinal hernia repair Hx of hemorrhoidectomy Family History Mother , 76yo Hypertension AML (acute myeloid leukemia) Father , 76yo Prostate cancer Diabetes Myocardial infarction Hypertension Sister Wilms' tumor Had a kidney removed Breast cancer Arthritis Hypertension Son , 46yo ALL (acute lymphoblastic leukemia) Meningioma Initially benign and later became malignant Daughter No problems noted. Social History Smoking Status: Former smoker Age Started Using Tobacco: 16; Cigarettes Per Day: Less than 1 PPD when smoking;smoked his pipe more;; Second Hand Exposure: No; Do You Dip or Chew Tobacco: No; Hx Alcohol Use: No Hx Substance Use: No Preferred Language: [place] Communication Ability: Effective Visual Impairment: No Limitations Hearing Ability: Normal [employer] Required: No Beliefs That Will Affect Care: None marital status: Current Living Situation: [facility] current [facility] status: retired 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;Professor; Feels Safe at Home: Yes Safety Concerns: Feels Safe At This Time Diet: other caffeine: No Assistive Devices: None Review of Systems Constitutional: + chills, + fatigue and + anorexia Eyes: as per Subjective / HPI Ear, Nose, Mouth, Throat: as per Subjective / HPI Respiratory: as per Subjective / HPI Cardiovascular: as per Subjective / HPI Gastrointestinal: as per Subjective / HPI Genitourinary: + as per Subjective / HPI Musculoskeletal: as per Subjective / HPI Integumentary: as per Subjective / HPI Physical Exam Constitutional: WD/WN, vitals as above Eyes: PERRL, conjunctivae normal, anicteric sclerae ENMT: external ear and nose normal, oropharynx normal Neck: trachea midline, no thyromegaly Respiratory: normal respiratory effort, lungs clear to auscultation Cardiovascular: RRR, no murmur, no edema Gastrointestinal (Abdomen): normal bowel sounds, soft, nontender, no hepatosplenomegaly Musculoskeletal: no cyanosis or clubbing, extremities motor strength 5/5 Skin: no rashes, warm and dry Neurologic: patellar DTR's 2+ bilat, sensation intact Results & Data Vital Signs (Past 12 Hours) Vital Signs Temp Pulse Pulse Pulse Resp BP BP 12/04/23 15:48 103 H 12/04/23 14:39 36.8 C 93 H 26 H 129/66 12/04/23 11:40 37.0 C 93 H 18 127/73 12/04/23 08:10 37.2 C 91 H 20 148/71 H 12/04/23 07:54 37.6 C H 84 26 H 125/63 12/04/23 07:35 85 12/04/23 07:35 12/04/23 06:39 37.1 C 89 28 H 123/66 12/04/23 06:28 37.8 C H 89 32 H 152/70 H 12/04/23 06:09 104 H 26 H 12/04/23 05:40 38.4 C H 99 H 40 H 154/76 H 12/04/23 05:26 37 C 88 18 114/70 12/04/23 05:25 37 C 88 18 114/70 Pulse Ox O2 Del Method O2 Flow Rate 12/04/23 15:48 12/04/23 14:39 99 Oxymask 2 12/04/23 11:40 95 Room Air 12/04/23 08:10 97 Room Air 12/04/23 07:54 97 Room Air 12/04/23 07:35 12/04/23 07:35 Room Air 12/04/23 06:39 96 Room Air 12/04/23 06:28 100 Room Air 12/04/23 06:09 99 Room Air 12/04/23 05:40 99 12/04/23 05:26 98 12/04/23 05:25 98
[2023-12-04] MEDS: ACETAMINOPHEN 1,000 MG/100 ML VIAL IV ONE (17:57)
[2023-12-04] MEDS: diphenhydrAMINE HCL 25 MG/10 ML UDC PO ONE (17:57)
[2023-12-04] MEDS: ALBUT/IPRATROP 3MG/0.5MG NEB 3 ML VIAL NEB STA ×2 (19:40→22:11)
--- NOTE | 2023-12-04 19:41 | Communication Note ---
Date of Service: December 04, 2023 Patient with tenuous respiration during initiation of blood transfusion tonight as per RN. Continues to be febrile even before transfusion started. Denies chest pain, cough symptoms. Chest x-ray as per my interpretation congestion Procalcitonin elevated AP Respiratory distress, pulmonary congestion Sepsis, unclear source for now, immunocompromised patient, history of CML on chemotherapy Hold blood product transfusions for now Additional Lasix CS, vancomycin and cefepime (Hold home Levaquin prophylactic Rx while on cefepime)
[2023-12-04] MEDS ORDERED: VANCOMYCIN CONSULT ACTIVE PRN (20:06)
[2023-12-04] MEDS: CEFEPIME 2,000 MG in SYRINGE 0 ML IV SCH (20:50)
[2023-12-04] MEDS: VANCOMYCIN HCL 2,500 MG in SODIUM CHLORIDE 0.9% 500 ML IV ONE (20:50)
--- NOTE | 2023-12-04 21:13 | XRay Report ---
SINGLE VIEW CHEST CLINICAL HISTORY: Dyspnea FINDINGS: An AP, portable, upright chest radiograph is compared to study performed earlier the same d ay 12/04/2023. Correlation is made with chest CT dated 04/27/2023. The heart is enlarged. Pulmonary vas cular congestion appears improved from previous. There is mild bibasilar scarring/atelectasis. No air space consolidation or large pleural effusion is identified. No pneumothorax is seen. The skeletal st ructures are osteopenic. The bony thorax is grossly intact. Arthritic change is seen in the left shou lder. IMPRESSION: Cardiomegaly with no active disease in the chest. ACT 112: Negative or not required by law. Electronically signed by: Ash Coe M.D. 12/04/2023 9:12 PM
[2023-12-04 21:41] LABS: Blood Urine 3+ (Negative)
[2023-12-04] MEDS ORDERED: hydrOXYzine HCl 10 MG TAB PO PRN (22:01)
[2023-12-04 22:10] LABS: Hematocrit (blood only) 13.3 % (42.0-52.0); Hemoglobin 4.8 g/dl (14.0-18.0); Mean Corpuscular Hemoglobin 28.7 pg (25.0-34.0); Mean Corpuscular Hgb Conc 36.1 g/dL (32.0-36.0); Mean Corpuscular Volume 79.6 fL (80.0-100.0); Platelet Count 3 K/uL (130-400); RDW Standard Deviation 45.7 fL (36.4-46.3); Red Blood Count 1.67 M/uL (4.70-6.10); White Blood Count 0.12 K/ul (4.8-10.8)
[2023-12-04] MEDS: hydrOXYzine HCl 10 MG TAB PO STA (22:48)
[2023-12-04] MEDS: ALBUMIN 25% 25 GM/100 ML VIAL IV ONE (23:39)
[2023-12-04 23:56] LABS: Mixed Venous Blood Gas Base Excess -5.7 mEq/L (-7.7-1.9); Mixed Venous Blood Gas HCO3 18 mmol/L (19-24); Mixed Venous Blood Gas O2 Sat < 60.0 % (68); Mixed Venous Blood Gas PCO2 31 mmHg (38-50); Mixed Venous Blood Gas PO2 20 mmHg (80-95); Mixed Venous Blood Gas pH 7.38 (7.35-7.45)
[2023-12-05] MEDS: methylPREDNISolone 20 MG in SYRINGE 0 ML IV ONE (01:51)
[2023-12-05] MEDS: IPRATROPIUM BROMIDE NEB SOLN 0.02% 0.5MG/2.5ML VIAL INH STA (02:52)
[2023-12-05] MEDS: LEVALBUTEROL 1.25 MG/3 ML NEB NEB STA (02:52)
[2023-12-05 05:03] LABS: BUN Creatinine Ratio 26.1 (10-20); Calcium 7.7 mg/dl (8.6-10.3); Creatinine Clr Calc Pharmacy 39.2 ml/min; Est GFR (African American) 35.7 ml/min; Est GFR (Non-African American) 30.8 ml/min; Hematocrit (blood only) 10.7 % (42.0-52.0); Hemoglobin 3.6 g/dl (14.0-18.0); Mean Corpuscular Hemoglobin 27.9 pg (25.0-34.0); Mean Corpuscular Hgb Conc 33.6 g/dL (32.0-36.0); Mean Corpuscular Volume 82.9 fL (80.0-100.0); Neutrophils # (auto) < 0.50 K/uL (1.40-6.50); Platelet Count 2 K/uL (130-400); Potassium 3.9 mmol/L (3.5-5.1); RDW Coefficient of Variation 15.9 % (11.5-14.5); RDW Standard Deviation 46.8 fL (36.4-46.3); Red Blood Count 1.29 M/uL (4.70-6.10); White Blood Count 0.03 K/ul (4.8-10.8)
[2023-12-05] MEDS: ALBUMIN 25% 12.5 GM/50 ML VIAL IV ONE (06:04)
[2023-12-05 07:35] VITALS: BP 114/64; RESP 19; TEMP 98.1; O2SAT 100
--- NOTE | 2023-12-05 08:26 | XRay Report ---
SINGLE VIEW CHEST CLINICAL HISTORY: Worsening dyspnea FINDINGS: 2 AP, portable, upright chest radiographs are compared to study performed earlier the same day 12/04/2023. Correlation is made with chest CT dated 04/27/2023. The heart is enlarged. There is mil d pulmonary vascular congestion. Scarring/atelectasis is noted at the lung bases. No airspace consoli dation or large pleural effusion is identified. No pneumothorax is seen. The skeletal structures are osteopenic. The bony thorax is grossly intact. Arthritic change is seen in the shoulders. IMPRESSION: Cardiomegaly with increasing pulmonary vascular congestion. ACT 112: Negative or not required by law. Electronically signed by: Ash Coe M.D. 12/05/2023 8:25 AM
--- NOTE | 2023-12-05 10:04 | Pharmacy Report ---
Pharmacy PK ABX Note - Date of Service December 05, 2023 - Assessment and Plan Assessment 78 year old M receiving vancomycin and cefepime for treatment of sepsis of unclear source. Pertinent microbiologic data includes: blood culture with NGTD. Day # 2 of antimicrobial therapy. Plan Vancomycin * Loading dose: 2500 mg IV x 1 * Maintenance dose: 1000 mg IV every 24 hours * Regimen is predicted to achieve target AUC/SUMEET of 400-600 mg/L.hr * Random level ordered for: 12/06/2023 with morning labs Pharmacy will continue to follow and will adjust dose/frequency as necessary. Thank you. Pharmacy has transitioned to AUC monitoring for vancomycin. AUC/SUMEET is the preferred PK/PD target and is associated with decreased risk of nephrotoxicity compared to traditional trough targets.
[2023-12-05] MEDS ORDERED: LORazepam 2 MG/1 ML VIAL IV PRN (10:06)
[2023-12-05] MEDS ORDERED: ONDANSETRON INJ 2 MG/ML 2 ML VIAL IV PRN (10:06)
[2023-12-05 10:10] VITALS: PULSE 77
--- NOTE | 2023-12-05 14:04 | Hospitalist Progress Note ---
Date of Service December 05, 2023 Assessment & Plan (1) Pancytopenia: (2) Comfort measures only status: Plan 78y/o M with PMHx of 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 Stratton after he was alerted that his hemoglobin level was 4 and his platelet count was 1k on routine blood work. He was diagnosed with CML in April 2023. Patient was on chemotherapy regimen: Venetoclax + Decitabine D1-5 Q28D. Patient's last dose of Decitabine was on 11/30 and last dose of Venetoclax was on 11/22. He got weekly bloodwork done every Sunday. Reports he has been getting blood product transfusions weekly for the past ~5 weeks. No recent fevers. Severe Pancytopenia Atypical CML on Chemotherapy Transfusion reaction Comfort measure only status --CT ABD:There is no intraperitoneal or retroperitoneal hemorrhage as clinically queried. Splenomegaly has improved as compared to 05/09/2023. There is mild perisplenic infiltration which may be treatment related. Retroperitoneal, iliac chain, and pelvic sidewall lymphadenopathy has decreased from 05/09/2023. Cardiomegaly. Cholelithiasis. There is mild infiltration around the prostate gland. Correlate with clinical findings and urinalysis. -- Follows with [facility] oncology --S/P 4 units PRBC and 4 units platelets Had transfusion reaction Transfusion resistant Oncologist had GOC with patient/family and recommends no further active treatment Patient confirmed he wants to stop all active treatment Comfort measures only management Code status changed to DNR per patient's wishes CM working on hospice at facility where patient resides Other Medical Conditions: HTN, seasonal allergies, H/O gout CKD3 Code status; DNR I spent a total of 50 minutes coordinating, documenting and providing care for this patient excluding time spent in performance of separately billed services Admission and Anticipated Discharge Date Admission Date: December 03, 2023 Subjective Patient seen and examined Dr Stratton already had GOC discussion with patient/family and notified me to proceed with plan to dc on hospice Patient acknowledged this. Reports SOB which has improved with oxygen supplementation Denied any chest pain or pain anywhere Reports fatigue Denied fever, nausea, abd pain, diarrhea Reports he will like regular diet Physical Exam Constitutional: + ill appearing (chronic ill looking) an d + well hydrated; no acute distress Eyes: PERRL, conjunctivae normal, anicteric sclerae ENMT: external ear and nose normal, oropharynx normal Respiratory: normal respiratory effort, lungs clear to auscultation Cardiovascular: Rate/Rhythm: regular rate and regular rhythm Gastrointestinal (Abdomen): normal bowel sounds, soft, nontender, no hepatosplenomegaly Musculoskeletal: No pedal edema Neurologic: PERRL, EOMI, accommodation nl, no face palsy, no dysarthria Psychiatric: A+Ox3, euthymic affect Results & Data Results & Data Vital Signs (Past 12 Hours) Vital Signs Temp Pulse Pulse Resp BP Pulse Ox O2 Del Method 12/05/23 07:33 36.7 C 80 19 114/64 100 Oxymask 12/05/23 07:30 77 12/05/23 07:30 Oxymask 12/05/23 07:02 36.6 C 86 30 H 129/69 99 Oxymask 12/05/23 06:10 36.9 C 76 24 120/66 98 Oxymask 12/05/23 05:12 36.7 C 82 29 H 108/58 L 97 Nasal Cannula 12/05/23 04:21 37.5 C 80 30 H 102/61 99 Oxymask 12/05/23 02:50 37.3 C 86 32 H 112/64 97 Oxymask O2 Flow Rate 12/05/23 07:33 4 12/05/23 07:30 12/05/23 07:30 4 12/05/23 07:02 4 12/05/23 06:10 4 12/05/23 05:12 4 12/05/23 04:21 4 12/05/23 02:50 4 Laboratory Results Abnormal lab results 12/03/23 12/04/23 12/04/23 Range/Units 10:46 20:06 21:24 WBC 0.12 L* (4.8-10.8) K/ul RBC 1.67 L (4.70-6.10) M/uL Hgb 4.8 L* (14.0-18.0) g/dl Hct 13.3 L* (42.0-52.0) % MCV 79.6 L (80.0-100.0) fL MCHC 36.1 H (32.0-36.0) g/dL RDW Std Deviation (36.4-46.3) fL RDW Coeff of Lilliam 16.0 H (11.5-14.5) % Plt Count 3 L* (130-400) K/uL Neut # (Auto) (1.40-6.50) K/uL Mixed VBG pCO2 (38-50) mmHg Mixed VBG pO2 (80-95) mmHg Mixed VBG HCO3 (19-24) mmol/L Sodium (136-145) mmol/L Carbon Dioxide (21-32) mmol/L BUN (6-23) mg/dl Creatinine (0.6-1.4) mg/dl BUN/Creatinine Ratio (10-20) Glucose (70-99(Fasting)) mg/dl Lactate 3.6 H* (0.4-2.0) mmol/L Calcium (8.6-10.3) mg/dl Procalcitonin 5.45 H (0-0.5) ng/ml Urine Blood 3+ H (Negative) Urine RBC (Auto) 6-10 H (0-2) /hpf Crossmatch See Detail 12/04/23 12/05/23 Range/Units 23:54 04:22 WBC 0.03 L* (4.8-10.8) K/ul RBC 1.29 L (4.70-6.10) M/uL Hgb 3.6 L* (14.0-18.0) g/dl Hct 10.7 L* (42.0-52.0) % MCV (80.0-100.0) fL MCHC (32.0-36.0) g/dL RDW Std Deviation 46.8 H (36.4-46.3) fL RDW Coeff of Lilliam 15.9 H (11.5-14.5) % Plt Count 2 L* (130-400) K/uL Neut # (Auto) < 0.50 L* (1.40-6.50) K/uL Mixed VBG pCO2 31 L (38-50) mmHg Mixed VBG pO2 20 L (80-95) mmHg Mixed VBG HCO3 18 L (19-24) mmol/L Sodium 132 L (136-145) mmol/L Carbon Dioxide 19 L (21-32) mmol/L BUN 52 H (6-23) mg/dl Creatinine 1.99 H D (0.6-1.4) mg/dl BUN/Creatinine Ratio 26.1 H (10-20) Glucose 166 H (70-99(Fasting)) mg/dl Lactate 2.3 H* (0.4-2.0) mmol/L Calcium 7.7 L (8.6-10.3) mg/dl Procalcitonin (0-0.5) ng/ml Urine Blood (Negative) Urine RBC (Auto) (0-2) /hpf Crossmatch
[2023-12-05] MEDS ORDERED: VANCOMYCIN HCL 1,000 MG in SODIUM CHLORIDE 0.9% 250 ML IV SCH (20:00)
[2023-12-05] MEDS ORDERED: VANCOMYCIN HCL 1,500 MG in SODIUM CHLORIDE 0.9% 500 ML IV SCH (20:00)
[2023-12-05] MEDS: hydrOXYzine HCl 10 MG TAB PO STA (21:12)
--- NOTE | 2023-12-05 23:11 | Electrocardiogram Report ---
Test Reason : Blood Pressure : */* mmHG Vent. Rate : 81 BPM Atrial Rate : 81 BPM P-R Int : 170 ms QRS Dur : 98 ms QT Int : 398 ms P-R-T Axes : 72 21 29 degrees QTcB Int : 462 ms Normal sinus rhythm Low voltage QRS Nonspecific ST and T wave abnormality Abnormal ECG When compared with ECG of 28-Apr-2023 05:06, No significant change Confirmed by Abner Goins ([id number]) on 12/05/2023 11:10:43 PM Referred By: REFERRED SELF Confirmed By: Abner Goins
[2023-12-06] MEDS: MoRPHine SULFATE 2 MG/ML CARP IV PRN (04:44)
--- NOTE | 2023-12-06 06:48 | Electrocardiogram Report ---
Test Reason : Blood Pressure : */* mmHG Vent. Rate : 88 BPM Atrial Rate : 88 BPM P-R Int : 174 ms QRS Dur : 104 ms QT Int : 420 ms P-R-T Axes : 72 -1 21 degrees QTcB Int : 508 ms Sinus rhythm with Premature supraventricular complexes and Premature ventricular complexes Nonspecific ST abnormality Abnormal ECG When compared with ECG of 03-Dec-2023 12:56, Premature supraventricular complexes are now Present Premature ventricular complexes are now Present Confirmed by Abner Goins ([id number]) on 12/06/2023 6:47:25 AM Referred By: REFERRED SELF Confirmed By: Abner Goins
--- NOTE | 2023-12-06 11:58 | Discharge Summary ---
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 Stratton after he was alerted that his hemoglobin level was 4 and his platelet count was 1k on routine bloodwork performed earlier today. History obtained from patient, at bedside and associated chart review. Patient was seen directly with Dr. Estevez. He was diagnosed with CML in April 2023. Patient is currently on the following chemotherapy regimen according to review of [facility] documentation: Venetoclax + Decitabine D1-5 Q28D. Patient's last dose of Decitabine was on 11/30 and last dose of Venetoclax was on 11/22. He gets weekly bloodwork done every Sunday. Was alerted this morning that his hemoglobin level was 4 and his platelet count was 1k - told to go to the ED for evaluation in anticipation for transfusions. Patient has been feeling extremely weak and unsteady on his feet today. He was not able to stand up and get to the car to come to the hospital, hence they called EMS for transportation to the ED. He has been getting blood product transfusions weekly for the past 5 weeks. No recent fevers, sore throat or cough. Denies any chest pain or abdominal pain. Appetite has been decreased. His tongue has been sore for the past couple of weeks. Did have pain in his right hip approximately 2 weeks ago. Describes this pain as excruciating, was prescribed oxycodone and only took 2 doses. Previous tobacco use history - last smoked in 1970. No alcohol use. No recreational drug use. Admission Exam Per Admitting Provider GENERAL: Alert and oriented x3. NAD, on RA. HEENT: + pallor, + icterus. Pupils equal, round and reactive to light. Oral mucosa moist. NECK: No JVD, no neck masses. HEART: S1 and S2 heard. Regular rate and rhythm. No murmur, no gallop. RESPIRATORY SYSTEM: Normal AP diameter. No accessory muscle use. No wheezing, no crackles. ABDOMEN: Soft, bowel sounds present, nontender, no distention. CENTRAL NERVOUS SYSTEM: No facial droop. Speech is clear. Obeys simple commands. Moves extremities. EXTREMITIES: No edema, no erythema seen. Principal Diagnosis Atypical CML Comfort measure only Pancytopenia Discharge Exam Constitutional + ill appearing (chronic ill looking) and + well hydrated; no acute distress Eyes PERRL, conjunctivae normal, anicteric sclerae ENMT external ear and nose normal, oropharynx normal Respiratory normal respiratory effort, lungs clear to auscultation Cardiovascular Rate/Rhythm: regular rate and regular rhythm Gastrointestinal (Abdomen) normal bowel sounds, soft, nontender, no hepatosplenomegaly Neurologic PERRL, EOMI, accommodation nl, no face palsy, no dysarthria Psychiatric A+Ox3, euthymic affect Discharge Data Allergies Allergy/AdvReac Type Severity Reaction Status Date / Time adhesive tape Allergy Mild Redness of Verified 11/27/23 08:27 Skin Consultations 12/03/23 13:20 ED Decision to Admit Stat 12/03/23 14:19 Consult Hematology Routine Ordered Studies 12/04/23 12:52 CT Abd and Pelvis [CT abd pelvis wo con] Urgent Hospital Course (1) Pancytopenia: (2) Comfort measures only status: Plan 78y/o M with PMHx of 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 Stratton after he was alerted that his hemoglobin level was 4 and his platelet count was 1k on routine blood work. He was diagnosed with CML in April 2023. Patient was on chemotherapy regimen: Venetoclax + Decitabine D1-5 Q28D. Patient's last dose of Decitabine was on 11/30 and last dose of Venetoclax was on 11/22. He got weekly bloodwork done every Sunday. Reports he has been getting blood product transfusions weekly for the past ~5 weeks. No recent fevers. Severe Pancytopenia Atypical CML on Chemotherapy Transfusion reaction Comfort measure only status --CT ABD:There is no intraperitoneal or retroperitoneal hemorrhage as clinically queried. Splenomegaly has improved as compared to 05/09/2023. There is mild perisplenic infiltration which may be treatment related. Retroperitoneal, iliac chain, and pelvic sidewall lymphadenopathy has decreased from 05/09/2023. Cardiomegaly. Cholelithiasis. There is mild infiltration around the prostate gland. Correlate with clinical findings and urinalysis. -- Follows with [facility] oncology --S/P 4 units PRBC and 4 units platelets Had transfusion reaction Transfusion resistant Bone marrow failure No further active treatment recommended by Oncologist Currently on Comfort measures only per patient's wishes Patient stated he will like to continue only metoprolol and stop other home meds Patient discharged back to facility where he lives to transition to hospice over there Total Time Total Time Spent Total Time Spent (In Minutes): 35 Total Time Includes: Examination of the Patient, Discharge Planning and Medicati on Reconciliation Discharge Plan Discharge Items Patient Disposition: Transfer Retirement Fac Reason For Visit: REQUIRING TRANSFUSION, H/O CML Discharge Diagnosis: Atypical CML Comfort measure only Pancytopenia Activity: Resume your previous activity Non-emergency contact: Primary Care Provider Call non-emergency contact if: you have any medication questions Follow-up/Referrals: Mohan Haddad DO [Primary Care Provider] - Diet: Regular Addtl Attending Provider Instructions: Mr Burkett You were managed for pancytopenia due to your leukemia. Despite multiple transfusions, your blood count did not improve. You also had some transfusion reactions. Due to bone marrow failure, you opted to proceed with comfort measures only. Hospice will be initiated at the nursing facility where you live. It was a pleasure taking care of you. Pending Studies at Discharge: No Stand-Alone Forms: My [facility] Skilled Items Patient informed of condition?: Yes DNR: Yes Discharge Level of Care: Other Communicable Disease: No Discharge Prognosis: Deteriorating Lines: None Urinary Catheter: No Medications and DC Order Prescriptions: New morphine 10 mg/5 mL solution 5 mg PO Q6H PRN (Reason: pain or air hunger) Qty: 100 0RF Continued metoprolol succinate 25 mg Tablet Extended Release 24 Hr 12.5 mg PO DAILY prochlorperazine maleate 10 mg tablet 10 mg PO Q6H PRN (Reason: NAUSEA/VOMITING) Discontinued allopurinol 300 mg Tablet 300 mg PO DAILY loratadine 10 mg Tablet 10 mg PO DAILY fluconazole 100 mg tablet 100 mg PO DAILY acyclovir 400 mg tablet 400 mg PO BID docusate sodium [Colace] 100 mg Capsule 100 mg PO DIRECTED PRN (Reason: DURING CHEMO DAYS) polyethylene glycol 3350 [Miralax] 17 gram/dose Powder 17 g PO DIRECTED PRN (Reason: DURING CHEMO DAYS.) levofloxacin 500 mg tablet 500 mg PO DAILY Centrum 0.4-162-18 mg Tablet 1 tab PO DAILY Discharge Orders: Discharge Order (Routine); Ordered 12/06/23 Ordered By: Anamika Damon Admission Data Admit Date/Time: 12/03/23 14:19 Attending Provider: Anamika Damon I. Admit Provider: Tony Estevez Primary Care Provider: Mohan Haddad Other Providers: Mirza Tracy; Tony Estevez; Lobito Stratton Other Interventions: Discharge Summary Assessment (RN) Last Done: 12/06/23 14:03
--- NOTE | 2023-12-07 21:41 | Electrocardiogram Report ---
Test Reason : Blood Pressure : */* mmHG Vent. Rate : 79 BPM Atrial Rate : 79 BPM P-R Int : 192 ms QRS Dur : 112 ms QT Int : 410 ms P-R-T Axes : 76 46 49 degrees QTcB Int : 470 ms Normal sinus rhythm Low voltage QRS Nonspecific ST and T wave abnormality Abnormal ECG When compared with ECG of 04-Dec-2023 15:37, Premature ventricular complexes are no longer Present Premature supraventricular complexes are no longer Present Confirmed by Abner Goins ([id number]) on 12/07/2023 9:41:25 PM Referred By: REFERRED SELF Confirmed By: Abner Goins
== END 2023-12-06 16:02 | disposition hospice, inpatient (51) | DRG 809 ==
LOC: ED 12:45 → 4W 14:19 → SUATTDRO 14:19 → 4W 16:48 → 3E 12-05 16:19